=== PATIENT | female | born 1970 | race Hispanic/Latino ===

== ENCOUNTER 2022-04-04 19:31 | Emergency (ER) | payer OTHER ==
[~2022-04-04] VITALS: Ht 154.9 cm; Wt 67.1 kg
[2022-04-04 20:14] VITALS: BP 134/75
== END 2022-04-04 20:24 | disposition home or self-care (01) ==
LOC: EDH 19:31
DX: S61.411D Laceration without foreign body of right hand, subsequent encounter (principal); X58.XXXD Exposure to other specified factors, subsequent encounter
CPT/HCPCS: 99281

== ENCOUNTER 2024-06-03 15:01 | Emergency (ER) | payer OTHER ==
[~2024-06-03] VITALS: Ht 157.5 cm; Wt 67.6 kg
[2024-06-03 15:38] LABS: RAPID GROUP A STREP negative (NEGATIVE)
[2024-06-03 15:58] LABS: SARS-CoV-2, RNA, NAAT NEGATIVE SARS CoV-2 (NEGATIVE)
[2024-06-03 16:05] LABS: HEMATOCRIT 36.7 % (36-48); MEAN CORPUSCULAR HEMOGLOBIN 30.9 pg (27.0-33.0); MEAN CORPUSCULAR HGB CONC 34.9 g/dL (32.0-36.0); MEAN CORPUSCULAR VOLUME 88.6 fL (79-99); RED BLOOD CELL COUNT(AUTO) 4.14 MIL/uL (4.00-5.50); WHITE BLOOD COUNT (AUTO) 12.7 K/uL (4.8-10.8)
[2024-06-03 16:14] LABS: INFLUENZA TYPE A NEGATIVE FOR TYPE A (NEGATIVE); INFLUENZA TYPE B NEGATIVE FOR TYPE B (NEGATIVE)
[2024-06-03] MEDS: MAG/ALUM/SIMETH 30 ML UDCUP PO ONE (17:09)
[2024-06-03] MEDS: LIDOCAINE HCL 2% VISCOUS 15 ML UDCUP PO ONE (17:09)
[2024-06-03] MEDS: DICYCLOMINE HCL 10 MG/5 ML ML PO ONE (17:09)
[2024-06-03] MEDS: 0.9%NACL 1000ML 1,000 ML IV ONE ×2 (17:10→18:44)
[2024-06-03 17:25] LABS: CREATININE 0.8 mg/dL (0.5-1.0); POTASSIUM 3.8 mmol/L (3.5-5.1)
[2024-06-03 17:30] LABS: ALBUMIN 3.5 g/dL (3.5-5.0); BILIRUBIN,TOTAL 1.2 mg/dL (0.2-1.0); TOTAL PROTEIN, SERUM 7.3 g/dL (6.0-8.3)
[2024-06-03] MEDS: acetaMINOPHEN 500 MG TABLET PO ONE (17:57)
[2024-06-03 20:40] LABS: APPEARANCE,URINE CLEAR (CLEAR); BILIRUBIN,URINE NEGATIVE (NEGATIVE); COLOR,URINE COLORLESS (YELLOW); GLUCOSE, URINE (UA) NEGATIVE (NEGATIVE); KETONES,URINE NEGATIVE (NEGATIVE); LEUKOCYTE ESTERASE ,URINE NEGATIVE Leu/uL (NEGATIVE); NITRATE,URINE NEGATIVE (NEGATIVE); OCCULT BLOOD,URINE NEGATIVE (NEGATIVE); PH,URINE 6.5 (5.0-8.0); PROTEIN,URINE NEGATIVE (NEGATIVE); UROBILINOGEN,URINE 0.2 mg/dL (0.2-1.0)
[2024-06-03 20:49] LABS: ADD UA MICROSCOPIC NO
[2024-06-03 23:13] VITALS: BP 96/60; PULSE 62; RESP 16; TEMP 97.7; O2SAT 94
== END 2024-06-03 23:14 | disposition home or self-care (01) ==
LOC: EDH 15:01
DX: R07.9 Chest pain, unspecified (principal); Z20.822 Contact with and (suspected) exposure to COVID-19; J45.909 Unspecified asthma, uncomplicated
CPT/HCPCS: 99285; 96360; 70450; 71045; 87635; 96361; 84484; 80053; 85027; 87880; 87804 ×2; 81003; 36415; 93005; J7030 ×2

== ENCOUNTER 2024-07-10 18:59 | Emergency (ER) | payer OTHER ==
[~2024-07-10] VITALS: Ht 154.9 cm; Wt 68.5 kg
--- NOTE | 2024-07-10 19:22 | ERN ---
ED Note History of Present Illness Stated Complaint: RT FLANK PAIN Chief Complaint: Flank Pain Time Seen by MD: 19:02 Dictation: PATIENT IS A 54-YEAR-OLD FEMALE COMING IN TODAY WITH RIGHT FLANK PAIN THAT RADIATES TO RIGHT LOWER QUADRANT. SHE STATES SHE HAS HAD CHILLS WITHOUT NAUSEA VOMITING OR FEVER. SHE IS HAVING NEPHROSTOMY TUBE IN PLACE THAT WAS PLACED AT [facility] ON 07/04. URINE NEPHROSTOMY TUBE. Allergies: Coded Allergies: No Known Drug Allergies (Unverified Allergy, Unknown, 04/04/22) Past Medical History Past Medical History: Asthma, Kidney Stone, Pneumonia Surgical History: Other, None Surgical History Other: RT HAND, RT NEPHROSTOMY TUBE Social History: Negative, Lives with family History: Not Applicable RN Note Reviewed/Agreed w/PFSH: Yes Review of System Dictation \ CONSTITUTIONAL: NEGATIVE EXCEPT FOR HPI HEAD/FACE: NEGATIVE EXCEPT FOR HPI EENT: NEGATIVE EXCEPT FOR HPI RESPIRATORY: NEGATIVE EXCEPT FOR HPI GASTROINTESTINAL/ABDOMINAL: NEGATIVE EXCEPT FOR HPI GENITOURINARY: NEGATIVE EXCEPT FOR HPI RIGHT FLANK PAIN WITH NEPHROSTOMY TUBE IN PLACE DRAINING CLEAR URINE MUSCULOSKELETAL: NEGATIVE EXCEPT FOR HPI INTEGUMENTARY: NEGATIVE EXCEPT FOR HPI NEUROLOGICAL/PSYCH: NEGATIVE EXCEPT FOR HPI HEMATOLOGIC/LYMPHATIC: NEGATIVE EXCEPT FOR HPI ALL SYSTEMS NEGATIVE, EXCEPT NOTED ABOVE. 13 POINT REVIEW OF SYSTEMS ASSESSED AND ALL NEGATIVE EXCEPT FOR ABOVE. Initial Vital Sign VS Vital Signs Date Time Temp Pulse Resp B/P (MAP) Pulse Ox O2 Delivery O2 Flow Rate FiO2 07/10/24 19:00 97.9 77 20 136/85 100 Room Air 07/10/24 20:43 0 21 Physical Exam Dictation VITAL SIGNS REVIEWED GENERAL APPEARANCE: ALERT, ORIENTED X 3, MODERATE ACUTE DISTRESS, WELL DEVELOPED, NOURISHED. HEAD AND FACE: NON-TRAUMATIC. EYES: PERRL, PINK CONJUNCTIVAS, EYELID NO TRAUMA, ANTERIOR CHAMBER WITH ARCUS SENILIS. EARS: PINNAS INTACT AND NO SIGNS OF TRAUMA OR ERYTHEMA EAR CANALS CLEAR AND NO DISCHARGE TM NO ERYTHEMA NOSE: NO DISCHARGE, NO BLEEDING. OROPHARYNX: MOUTH NORMAL, TONGUE PINK, PHARYNX CLEAR,NO ERYTHEMA, TONSILS NO EXUDATES, NO ABSCESSES NOTED, MUCOUS MEMBRANE MOIST NECK: SUPPLE, NON-TENDER, NO THYROMEGALY, NO MASSES, NO JVD, NO BRUITS BREAST:DEFERRED CHEST:NO TENDERNESS, NO CREPITUS, NO PARADOXICAL MOVEMENT, NO RETRACTIONS LUNGS:CLEAR, WELL-VENTILATED, SYMMETRIC, NO RALES, NO WHEEZING, NO RHONCHI, NO STRIDOR, GOOD BREATH SOUNDS BILATERALLY HEART: REGULAR RATE, REGULAR RHYTHM, NO MURMUR, NO GALLOPS VASCULAR: NO PERIPHERAL EDEMA, ABDOMEN: SOFT, POSITIVE BOWEL SOUNDS, NONDISTENDED, NO GUARDING, NONTENDER, NO REBOUND, NO MASSES NO HEPATOMEGALY, NO SPLENOMEGALY, NO PEACE'S SIGN, NO HERNIAS. RECTAL: DEFERRED GENITAL: DEFERRED RIGHT FLANK PAIN WITH NEPHROSTOMY TUBE, DRAINING CLEAR WIN URINE TO BAG INSERTION SITE WITHOUT ERYTHEMA TENDERNESS SWELLING NEUROLOGICAL: NORMAL SPEECH, MOTOR FUNCTION INTACT, SENSORY FUNCTION INTACT MUSCULOSKELETAL: NECK NONTENDER, FULL RANGE OF MOTION, BACK NONTENDER, FULL RANGE OF MOTION, EXTREMITIES: NONTENDER, FULL RANGE OF MOTION SKIN: COLOR PINK, DRY, NO TURGOR, NO RASH, NO LACERATIONS, NO ABRASIONS, NO CONTUSIONS. LYMPHATIC: DEFERRED Results (Laboratory/Radiology) Laboratory/Radiology Laboratory Tests Test 07/10/24 19:28 07/10/24 19:41 White Blood Count 6.9 K/uL (4.8-10.8) Red Blood Count 3.80 MIL/uL (4.00-5.50) L Hemoglobin 11.7 g/dL (12.0-16.0) L Hematocrit 34.1 % (36-48) L Mean Corpuscular Volume 89.7 fL (79-99) Mean Corpuscular Hemoglobin 30.8 pg (27.0-33.0) Mean Corpuscular Hemoglobin Concent 34.3 g/dL (32.0-36.0) Red Cell Distribution Width 12.0 % (11.0-15.5) Platelet Count 271 K/uL (130-400) Mean Platelet Volume 9.0 fL (7.5-10.5) Immature Granulocyte % (Auto) 0.3 % (0-1) Neutrophils (%) (Auto) 63.4 % (40.0-77.0) Lymphocytes (%) (Auto) 26.1 % (21.0-51.0) Monocytes (%) (Auto) 7.4 % (3.0-13.0) Eosinophils (%) (Auto) 2.7 % (0.0-8.0) Basophils (%) (Auto) 0.1 % (0.0-5.0) Neutrophils # (Auto) 4.4 K/uL (1.8-7.7) Lymphocytes # (Auto) 1.8 K/uL (1.0-4.8) Monocytes # (Auto) 0.5 K/uL (0.1-1.0) Eosinophils # (Auto) 0.19 K/uL (0.00-0.70) Basophils # (Auto) 0.01 K/uL (0.00-0.20) Absolute Immature Granulocyte (auto 0.02 K/uL (0-1) Nucleated Red Blood Cells 0.0 % (0.0-0.19) Sodium Level 137 mmol/L (136-145) Potassium Level 3.8 mmol/L (3.5-5.1) Chloride Level 102 mmol/L (101-111) Carbon Dioxide Level 31 mmol/L (21-32) Blood Urea Nitrogen 14 mg/dL (7-18) Creatinine 0.8 mg/dL (0.5-1.0) Glomerular Filtration Rate Calc 88 mL/min (>90) Random Glucose 120 mg/dL (70-105) H Total Calcium 9.1 mg/dL (8.5-10.1) Urine Color LIGHT-ORANGE (YELLOW) Urine Appearance TURBID (CLEAR) Urine pH 6.5 (5.0-8.0) Urine Specific [place] 1.022 (1.001-1.031) Urine Protein 100 mg/dL (NEGATIVE) H Urine Glucose (UA) NEGATIVE mg/dL (NEGATIVE) Urine Ketones NEGATIVE mg/dL (NEGATIVE) Urine Occult Blood LARGE (NEGATIVE) H Urine Nitrate NEGATIVE (NEGATIVE) Urine Bilirubin NEGATIVE mg/dL (NEGATIVE) Urine Urobilinogen 0.2 mg/dL (0.2-1.0) Urine Leukocyte Esterase 250 Angela/uL (NEGATIVE) H Urine RBC TNTC /HPF (0-1) H Urine WBC None /HPF (0-1) Urine Calcium Oxalate Crystals MOD /LPF (None Seen) Urine Bacteria None /HPF (None Seen) CT ABDOMEN/PELVIS W/O CONTRAST HISTORY: Right flank COMPARISON: 04/24/2004 TECHNIQUE: Multiple sequential axial images of the abdomen and pelvis were obtained from the dome of the diaphragm through symphysis pubis. Patient was not through intravenous route. Oral contrast was not given. FINDINGS: No pleural effusion is seen bilaterally. There is no evidence of parenchymal disease or pulmonary nodule of the visualized lower lungs. Degenerative changes of the thoracolumbar spine are present. The heart is not enlarged. Liver measures 15 cm. The liver, spleen, adrenal glands and pancreas are unremarkable. There is no evidence of hydronephrosis bilaterally. There is right percutaneous nephrostomy tube. 4 mm renal stone is seen right proximal mid ureter. Fecal material is seen in the colon. There are normal size retroperitoneal and mesenteric lymph nodes. No ascites is seen. Atherosclerotic changes are present. No CT evidence of acute appendicitis is seen. Pelvic sidewalls are symmetric bilaterally. Bladder is poorly distended. IMPRESSION: 1. There is right percutaneous nephrostomy tube. 4 mm renal stone is seen right proximal mid ureter. Labs Reviewed?: Yes ED Course ED Course Orders Procedure Category Date Status Time Cbc With Differential LAB 07/10/24 Complete 19:19 Urinalysis Profile LAB 07/10/24 Complete 19:19 0.9%Nacl 1000ml (Ns PHA 07/10/24 Complete 1000ml) 19:30 Ketorolac PHA 07/10/24 Complete Tromethamine 30mg/Ml 19:30 Ct Abdomen/Pelvis W/O CT 07/10/24 Resulted Contrast 19:19 Basic Metabolic Panel LAB 07/10/24 Complete 19:19 Culture Urine ABRAHAM 07/10/24 In Process 19:51 Morphine 2mg Syg PHA 07/10/24 Complete (Morphine 2mg Syg) 20:30 Current Medications Medications (Trade) Dose Ordered Sig/Juan Route PRN Reason Start Time Stop Time Status Last Admin Dose Admin Ketorolac Tromethamine (toRADol) 30 mg ONCE ONCE IVP 07/10/24 19:30 07/10/24 19:31 DC 07/10/24 19:37 Morphine Sulfate (morPHINE 2MG SYG) 2 mg ONCE ONCE IVP 07/10/24 20:30 07/10/24 20:31 DC 07/10/24 20:13 Sodium Chloride 1,000 ml @ 0 mls/hr ONCE ONCE IV 07/10/24 19:30 07/10/24 19:31 DC 07/10/24 19:37 Vital Signs Date Time Temp Pulse Resp B/P (MAP) Pulse Ox O2 Delivery O2 Flow Rate FiO2 07/10/24 20:43 97.7 74 20 130/63 96 Room Air* 0 21 07/10/24 19:00 97.9 77 20 136/85 100 Room Air 09/19/2054 PATIENT WILL BE DISCHARGED HOME WITH HEMODYNAMICALLY STABLE VITAL SIGNS WE WILL BE PUT ON AUGMENTIN FOR CYSTITIS AND TOLD TO SEE HER UROLOGIST IN 1-2 DAYS. Medical Decision Making MDM MEDICAL DISCHARGE MAKING BASED ON CT AND LABS WITH A URINALYSIS FOR NEPHROSTOMY TUBE PLACEMENT. PATIENT HAS A ACUTE CYSTITIS WITH HEMATURIA NEPHROSTOMY TUBE WAS IN PLACE AND DRAINING DISCHARGED HOME TO FOLLOW UP WITH THE UROLOGIST IN 1-2 DAYS. DX & DISP Disposition: Discharge Departure Impression: Primary Impression: Acute cystitis with hematuria Additional Impressions: Renal calculus, right, Colic, ureteral, Nephrostomy status Condition: Stable Scripts Phenazopyridine HCl (Pyridium) 200 Mg Tablet 200 MG PO TID for painful urination for 5 Days, #15 TAB 0 Refills Prov: MARCY GRIMES NP 07/10/24 Acetaminophen with Codeine (Acetaminophen-Cod #3 Tablet) 300 Mg-30 Mg Tablet 1 TAB PO Q4H PRN for MODERATE TO SEVERE PAIN, #15 TAB 0 Refills Prov: MARCY GRIMES NP 07/10/24 Amoxicillin/Potassium Clav (Amox Tr-K Clv 875-125 mg Tab) 875 Mg-125 Mg Tablet 1 EACH PO BID for 7 Days, #14 TAB 0 Refills Prov: MARCY GRIMES NP 07/10/24 Additional Instructions: Follow-up with primary care provider in 1 to 2 days. Take medications as directed here in the emergency room. Okay to continue home medications unless otherwise discussed during your visit in the emergency room today. Return to your nearest emergency room if symptoms worsen or if there is no improvement. Call 911 if you need immediate assistance. Take Tylenol or Motrin [id number] as needed and if no contraindications are present. Increase oral hydration. A wound culture or urine culture was ordered here in the [facility] department please follow-up with primary care provider and advise them to get repeat ports from our facility. If you had any Gary wrap/splints that were applied here, please do not remove them until you see your primary care or specialty. Take antibiotics as directed until gone, call your urologist for a follow up in the next 1-2 days. Increase your water intake. Referrals: SELF,REFERRAL (PCP) Time of Disposition: 21:58 I have reviewed the case, and I agree with, Diagnosis and Plan MARCY GRIMES NP Jul 10, 2024 19:22
[2024-07-10 19:35] LABS: BASOPHILS # (AUTO) 0.01 K/uL (0.00-0.20); BASOPHILS % (AUTO) 0.1 % (0.0-5.0); EOSINOPHILS # (AUTO) 0.19 K/uL (0.00-0.70); EOSINOPHILS % (AUTO) 2.7 % (0.0-8.0); HEMATOCRIT 34.1 % (36-48); IMMATURE GRANULOCYTE ABSOLUTE 0.02 K/uL (0-1); LYMPHOCYTES # (AUTO) 1.8 K/uL (1.0-4.8); LYMPHOCYTES % (AUTO) 26.1 % (21.0-51.0); MEAN CORPUSCULAR HEMOGLOBIN 30.8 pg (27.0-33.0); MEAN CORPUSCULAR HGB CONC 34.3 g/dL (32.0-36.0); MEAN CORPUSCULAR VOLUME 89.7 fL (79-99); MONOCYTES # (AUTO) 0.5 K/uL (0.1-1.0); MONOCYTES % (AUTO) 7.4 % (3.0-13.0); NEUTROPHILS # (AUTO) 4.4 K/uL (1.8-7.7); NEUTROPHILS % (AUTO) 63.4 % (40.0-77.0); PLATELET COUNT (AUTO) 271 K/uL (130-400); WHITE BLOOD COUNT (AUTO) 6.9 K/uL (4.8-10.8)
[2024-07-10] MEDS: 0.9%NACL 1000ML 1,000 ML IV ONE (19:37)
[2024-07-10] MEDS: ketOROlac 30MG VIAL (30MG/ML) IVP ONE (19:37)
[2024-07-10 19:43] LABS: CREATININE 0.8 mg/dL (0.5-1.0); POTASSIUM 3.8 mmol/L (3.5-5.1)
[2024-07-10 19:50] LABS: APPEARANCE,URINE TURBID (CLEAR); BILIRUBIN,URINE NEGATIVE (NEGATIVE); COLOR,URINE LIGHT-ORANGE (YELLOW); GLUCOSE, URINE (UA) NEGATIVE (NEGATIVE); KETONES,URINE NEGATIVE (NEGATIVE); LEUKOCYTE ESTERASE ,URINE 250 Leu/uL (NEGATIVE); NITRATE,URINE NEGATIVE (NEGATIVE); OCCULT BLOOD,URINE LARGE (NEGATIVE); PH,URINE 6.5 (5.0-8.0); PROTEIN,URINE 100 mg/dL (NEGATIVE); UROBILINOGEN,URINE 0.2 mg/dL (0.2-1.0)
[2024-07-10 19:51] LABS: ADD UA MICROSCOPIC YES
[2024-07-10 20:03] LABS: CALCIUM OXALATE CRYSTALS,UR MOD /LPF (None Seen); MUCUS,URINE RARE LPF (None Seen); RBC,URINE TNTC /HPF (0-1)
[2024-07-10] MEDS: morPHINE 2 MG SYG IVP ONE (20:13)
--- NOTE | 2024-07-10 21:35 | HMCIMG ---
CT ABDOMEN/PELVIS W/O CONTRAST HISTORY: Right flank COMPARISON: 04/24/2004 TECHNIQUE: Multiple sequential axial images of the abdomen and pelvis were obtained from the dome of the diaphragm through symphysis pubis. Patient was not through intravenous route. Oral contrast was not given. FINDINGS: No pleural effusion is seen bilaterally. There is no evidence of parenchymal disease or pulmonary nodule of the visualized lower lungs. Degenerative changes of the thoracolumbar spine are present. The heart is not enlarged. Liver measures 15 cm. The liver, spleen, adrenal glands and pancreas are unremarkable. There is no evidence of hydronephrosis bilaterally. There is right percutaneous nephrostomy tube. 4 mm renal stone is seen right proximal mid ureter. Fecal material is seen in the colon. There are normal size retroperitoneal and mesenteric lymph nodes. No ascites is seen. Atherosclerotic changes are present. No CT evidence of acute appendicitis is seen. Pelvic sidewalls are symmetric bilaterally. Bladder is poorly distended. IMPRESSION: 1. There is right percutaneous nephrostomy tube. 4 mm renal stone is seen right proximal mid ureter. CT was performed with one or more following dose reduction techniques: automated exposure control, adjustment of the mA and kv according to patient's size, or use of a iterative reconstruction technique.
[2024-07-10] MEDS ORDERED: ACET-2079 PO (22:01)
[2024-07-10] MEDS ORDERED: PHEN-776 PO (22:01)
[2024-07-10] MEDS ORDERED: AMOX1TAB16 PO (22:01)
[2024-07-10] MEDS: AMOX/CLAV 875/125MG TAB PO ONE (22:10)
[2024-07-10 22:13] VITALS: BP 104/59; PULSE 71; RESP 20; TEMP 97.2; O2SAT 96
== END 2024-07-10 22:26 | disposition home or self-care (01) ==
LOC: EDH 18:59
DX: N30.01 Acute cystitis with hematuria (principal); N20.0 Calculus of kidney; J45.909 Unspecified asthma, uncomplicated; Z93.6 Other artificial openings of urinary tract status
CPT/HCPCS: 99285; 74176; 96374; 96361; 96375; 80048; 85025; 87086; 81001; 36415; J2270; J7030; J1885

== ENCOUNTER 2024-07-14 18:52 | Emergency (ER) | payer OTHER ==
[~2024-07-14] VITALS: Ht 154.9 cm; Wt 68.9 kg
[~2024-07-14 18:52] MED LIST: ACET-2079 PO; AMOX1TAB16 PO; PHEN-776 PO
--- NOTE | 2024-07-14 19:03 | ERN ---
ED Note History of Present Illness Stated Complaint: BACK PAIN Chief Complaint: Back Pain-No Injury Time Seen by MD: 18:55 Dictation: PATIENT IS A 54-YEAR-OLD FEMALE HERE WITH A KNOWN RIGHT NEPHROSTOMY TUBE THAT IS DRAINING AND SHE STATES SHE WAS LIKE IT REMOVED. SHE HAD THE NEPHROSTOMY TUBE PLACED AT THIS HOSPITAL MORE THAN A MONTH AGO AND WAS PROVIDED THE NAME OF , SHE SAID HE FOLLOWED UP WITH HIM HOWEVER SHE CAN NOT AFFORD PAY FOR HIS CARE. ADDITIONALLY SHE WAS SEEN HERE ON July FOR THE SAME COMPLAINT, WAS WORKED UP INCLUDING A CT SCAN POSITION WAS VERIFIED AND SHE WAS PROVIDED MEDICATIONS FOR ACUTE UTI. SHE STATES I DID NOT FILL THE PRESCRIPTIONS BECAUSE I COULD NOT AFFORD THE MEDICATIONS. I ASKED HER IF SHE HAD SEEN HER PRIMARY CARE DOCTOR AND SHE SAID SHE DOES NOT HAVE A PRIMARY CARE DOCTOR. NEPHROSTOMY TUBE TO RIGHT LEG WITH LEG BAG DRAINING CLEAR WIN URINE. Allergies: Coded Allergies: No Known Drug Allergies (Unverified Allergy, Unknown, 04/04/22) Home Meds Active Scripts Phenazopyridine HCl (Pyridium) 200 Mg Tablet, 200 MG PO TID for painful urination for 5 Days, #15 TAB 0 Refills Prov:MARCY GRIMES NP 07/10/24 Acetaminophen with Codeine (Acetaminophen-Cod #3 Tablet) 300 Mg-30 Mg Tablet, 1 TAB PO Q4H PRN for MODERATE TO SEVERE PAIN, #15 TAB 0 Refills Prov:MARCY GRIMES NP 07/10/24 Amoxicillin/Potassium Clav (Amox Tr-K Clv 875-125 mg Tab) 875 Mg-125 Mg Tablet, 1 EACH PO BID for 7 Days, #14 TAB 0 Refills Prov:MARCY GRIMES NP 07/10/24 Past Medical History Past Medical History: Asthma, Kidney Stone, Pneumonia Surgical History: Other, None Surgical History Other: RT HAND, RT NEPHROSTOMY TUBE Social History: Negative, Lives with family History: Not Applicable RN Note Reviewed/Agreed w/PFSH: Yes Review of System Dictation CONSTITUTIONAL: NEGATIVE EXCEPT FOR HPI HEAD/FACE: NEGATIVE EXCEPT FOR HPI EENT: NEGATIVE EXCEPT FOR HPI RESPIRATORY: NEGATIVE EXCEPT FOR HPI GASTROINTESTINAL/ABDOMINAL: NEGATIVE EXCEPT FOR HPI GENITOURINARY: NEGATIVE EXCEPT FOR HPI RIGHT NEPHROSTOMY TUBE WITH OUT INFORMATION TO INSERTION SITE DRAINING TO RIGHT LEG DRAIN BAG CLEAR WIN URINE IN BAG MUSCULOSKELETAL: NEGATIVE EXCEPT FOR HPI INTEGUMENTARY: NEGATIVE EXCEPT FOR HPI NEUROLOGICAL/PSYCH: NEGATIVE EXCEPT FOR HPI HEMATOLOGIC/LYMPHATIC: NEGATIVE EXCEPT FOR HPI ALL SYSTEMS NEGATIVE, EXCEPT NOTED ABOVE. 13 POINT REVIEW OF SYSTEMS ASSESSED AND ALL NEGATIVE EXCEPT FOR ABOVE. Initial Vital Sign VS Vital Signs Date Time Temp Pulse Resp B/P (MAP) Pulse Ox O2 Delivery O2 Flow Rate FiO2 07/14/24 18:53 98.6 77 20 130/85 Room Air Physical Exam Dictation VITAL SIGNS REVIEWED GENERAL APPEARANCE: ALERT, ORIENTED X 3, NO ACUTE DISTRESS, WELL DEVELOPED, NOURISHED. HEAD AND FACE: NON-TRAUMATIC. EYES: PERRL, PINK CONJUNCTIVAS, EYELID NO TRAUMA, ANTERIOR CHAMBER WITH ARCUS SENILIS. EARS: PINNAS INTACT AND NO SIGNS OF TRAUMA OR ERYTHEMA EAR CANALS CLEAR AND NO DISCHARGE TM NO ERYTHEMA NOSE: NO DISCHARGE, NO BLEEDING. OROPHARYNX: MOUTH NORMAL, TONGUE PINK, PHARYNX CLEAR,NO ERYTHEMA, TONSILS NO EXUDATES, NO ABSCESSES NOTED, MUCOUS MEMBRANE MOIST NECK: SUPPLE, NON-TENDER, NO THYROMEGALY, NO MASSES, NO JVD, NO BRUITS BREAST:DEFERRED CHEST:NO TENDERNESS, NO CREPITUS, NO PARADOXICAL MOVEMENT, NO RETRACTIONS LUNGS:CLEAR, WELL-VENTILATED, SYMMETRIC, NO RALES, NO WHEEZING, NO RHONCHI, NO STRIDOR, GOOD BREATH SOUNDS BILATERALLY HEART: REGULAR RATE, REGULAR RHYTHM, NO MURMUR, NO GALLOPS VASCULAR: NO PERIPHERAL EDEMA, ABDOMEN: SOFT, POSITIVE BOWEL SOUNDS, NONDISTENDED, NO GUARDING, NONTENDER, NO REBOUND, NO MASSES NO HEPATOMEGALY, NO SPLENOMEGALY, NO PEACE'S SIGN, NO HERNIAS. RECTAL: DEFERRED GENITAL: DEFERRED RIGHT NEPHROSTOMY TUBE TO LEG BAG WITH CLEAR WIN URINE IN BAG. NEUROLOGICAL: NORMAL SPEECH, MOTOR FUNCTION INTACT, SENSORY FUNCTION INTACT MUSCULOSKELETAL: NECK NONTENDER, FULL RANGE OF MOTION, BACK NONTENDER, FULL RANGE OF MOTION, EXTREMITIES: NONTENDER, FULL RANGE OF MOTION SKIN: COLOR PINK, DRY, NO TURGOR, NO RASH, NO LACERATIONS, NO ABRASIONS, NO CONTUSIONS. LYMPHATIC: DEFERRED Results (Laboratory/Radiology) Labs Reviewed?: Yes ED Course ED Course Orders Procedure Category Date Status Time Acetaminophen With PHA 07/14/24 In Process Codeine (Tylenol-Code 19:30 Phenazopyridine Hcl PHA 07/14/24 In Process 200 Mg Tab (Pyridium 19:30 Current Medications Medications (Trade) Dose Ordered Sig/Juan Route PRN Reason Start Time Stop Time Status Last Admin Dose Admin Acetaminophen/ Codeine Phosphate (TYLenol-coDEINE TAB) 2 tab ONCE ONCE PO 07/14/24 19:30 07/14/24 19:31 Phenazopyridine HCl (PYRIdium HCL 200 MG TAB) 200 mg ONCE ONCE PO 07/14/24 19:30 07/14/24 19:31 Vital Signs Date Time Temp Pulse Resp B/P (MAP) Pulse Ox O2 Delivery O2 Flow Rate FiO2 07/14/24 18:53 98.6 77 20 130/85 Room Air 1910, NO LABS OR IMAGING INDICATED AT THIS TIME. PATIENT WAS INSTRUCTED TO PURCHASE OF THE MEDICATIONS THAT WERE PRESCRIBED TO HER ON 07/10/2024 AND FOLLOW UP WITH TOMORROW, CALL FOR AN APPOINTMENT. Medical Decision Making MDM MEDICAL DISCHARGE MAKING WAS BASED ON EDUCATION AND ASSESSMENT OF PATIENT. NO EMERGENT FINDINGS PATIENT INSTRUCTED TO FILL HER PRESCRIPTIONS FROM YOUR ER VISIT ON 07/10/2024 CALLED THE UROLOGIST THAT HAS BEEN PROVIDED TO HER FOR AN APPOINTMENT AND FOLLOW UP DX & DISP Disposition: Discharge Departure Impression: Primary Impression: Nephrostomy status Additional Impression: Medically noncompliant Condition: Stable Additional Instructions: FOLLOW-UP WITH PRIMARY CARE PROVIDER IN 1 TO 2 DAYS. TAKE MEDICATIONS DIRECTED HERE IN THE EMERGENCY ROOM. OKAY TO CONTINUE HOME MEDICATIONS UNLESS OTHERWISE DISCUSSED DURING YOUR VISIT IN THE EMERGENCY ROOM TODAY. RETURN TO YOUR NEAREST EMERGENCY ROOM IF SYMPTOMS WORSEN OR IF THERE IS NO IMPROVEMENT. CALL 911 IF YOU NEED IMMEDIATE ASSISTANCE. TAKE TYLENOL OR MOTRIN [id number] NEEDED AND IF NO CONTRAINDICATIONS ARE PRESENT. INCREASE ORAL HYDRATION. A WOUND CULTURE OR URINE CULTURE WAS ORDERED HERE IN THE EMERGENCY ROOM DEPARTMENT PLEASE FOLLOW-UP WITH PRIMARY CARE PROVIDER AND ADVISE THEM TO GET REPEAT PORTS FROM OUR FACILITY. IF YOU HAD ANY DARRIUS WRAP/SPLINTS THAT WERE APPLIED HERE, PLEASE DO NOT REMOVE THEM UNTIL YOU SEE YOUR PRIMARY CARE OR SPECIALTY. FILL THE PRESCRIPTIONS THAT WERE GIVEN TO YOU ON 07/10/2024. TAKE THESE MEDICATIONS DIRECTED. INCREASE YOUR WATER INTAKE, CALL UROLOGIST TOMORROW FOR AN APPOINTMENT. Referrals: SELF,REFERRAL (PCP) VIKTORIYA FREEMAN MD Time of Disposition: 19:12 I have reviewed the case, and I agree with, Diagnosis and Plan MARCY GRIMES TRACKMAN Jul 14, 2024 19:03
[2024-07-14] MEDS: PHENAZOpyridine HCL 200 MG TAB 200 MG TABLET PO ONE (20:42)
[2024-07-14] MEDS: acetaMINOPHEN WITH coDEINE 1 TAB TAB PO ONE (20:42)
[2024-07-14 20:49] VITALS: BP 138/74; PULSE 68; RESP 18; TEMP 98.6; O2SAT 98
== END 2024-07-14 20:45 | disposition home or self-care (01) ==
LOC: EDH 18:52
DX: Z43.6 Encounter for attention to other artificial openings of urinary tract (principal); J45.909 Unspecified asthma, uncomplicated; Z87.442 Personal history of urinary calculi; Z91.199 Patient's noncompliance with other medical treatment and regimen due to unspecified reason; Z79.899 Other long term (current) drug therapy; Z98.890 Other specified postprocedural states
CPT/HCPCS: 99283

== ENCOUNTER 2024-07-18 14:23 | Emergency (ER) | payer OTHER ==
[~2024-07-18] VITALS: Ht 154.9 cm; Wt 68.5 kg
--- NOTE | 2024-07-18 16:14 | ERN ---
ED Note History of Present Illness Stated Complaint: OTHER Chief Complaint: Other Problems Time Seen by MD: 14:55 Dictation: 54-year-old female presents to the ED for evaluation of her right nephrostomy tube stating that it has been bothering her for the past 2 days and wants it to be removed. Patient states that the nephrostomy tube was placed on 07/04/2024 by . Patient reports she has not been able to sleep due to being so uncomfortable and states that the area around the nephrostomy tube itches. Allergies: Coded Allergies: No Known Drug Allergies (Unverified Allergy, Unknown, 04/04/22) Home Meds Active Scripts Ciprofloxacin HCl (Cipro) 500 Mg Tablet, 1 TAB PO BID for 5 Days, #10 TAB 0 Refills Prov:CHI FIORE MD 07/18/24 Phenazopyridine HCl (Pyridium) 200 Mg Tablet, 200 MG PO TID for painful u rination for 5 Days, #15 TAB 0 Refills Prov:MARCY GRIMES NP 07/10/24 Acetaminophen with Codeine (Acetaminophen-Cod #3 Tablet) 300 Mg-30 Mg Tablet, 1 TAB PO Q4H PRN for MODERATE TO SEVERE PAIN, #15 TAB 0 Refills Prov:MARCY GRIMES NP 07/10/24 Amoxicillin/Potassium Clav (Amox Tr-K Clv 875-125 mg Tab) 875 Mg-125 Mg Tablet, 1 EACH PO BID for 7 Days, #14 TAB 0 Refills Prov:MARCY GRIMES NP 07/10/24 Past Medical History Past Medical History: Asthma, Kidney Stone, Pneumonia Surgical History: Other, None Surgical History Other: RT HAND, RT NEPHROSTOMY TUBE Social History: Negative, Lives with family History: Not Applicable Review of System Dictation Constitutional: Nephrostomy tube evaluation Negative for fever,chills, and weight loss Eyes: Negative for injury, pain,redness, and discharge ENT: Negative for injury,pain or swelling Cardiovascular: Negative for chest pain, palpitations, and edema Respiratory: Negative for shortness of breath, cough, and wheezing, Abdomen/GI: Negative for abdominal pain, nausea, vomiting, diarrhea, and constipation Back: Negative for injury and pain : Negative for injury, bleeding and discharge MS/Extremity: Negative for injury and deformity Skin: Negative for rash, and discoloration Neuro: Negative for headache, weakness, numbness, tingling, and seizure Psych: Negative for suicide ideation, homicidal ideation, and hallucinations Initial Vital Sign VS Vital Signs Date Time Temp Pulse Resp B/P (MAP) Pulse Ox O2 Delivery O2 Flow Rate FiO2 07/18/24 14:34 98.4 87 16 100/71 96 Room Air 0 Physical Exam Dictation General: awake, alert, NAD Head/Face: Normocephalic, atraumatic Eyes: PERRL, EOMI, vision at baseline ENT: oral cavity clear, TMs clear, no signs of infection Neck: Trachea midline, supple, no nuchal rigidity Cardiovascular: RRR, normal S1/S2, No MRGs, no JVD Respiratory: CTAB, no respiratory distress, No rales or wheezes Abdomen: Soft, non-tender, non-distended, normal bowel sounds, no guarding or rebound. Back: Right-sided nephrostomy tube in place Skin: Warm, dry, normal turgor, no rash MS/Extremity: Pulses equal, no cyanosis, neurovascular intact, FROM Neuro: COAx4, GCS 15, strength 5/5, CN 2-12 intact, normal cerebellar exam, normal gait, Psych: Normal behavior, mood, and affect normal Results (Laboratory/Radiology) Laboratory/Radiology Laboratory Tests Test 07/18/24 16:10 07/18/24 17:10 White Blood Count 6.0 K/uL (4.8-10.8) Red Blood Count 3.92 MIL/uL (4.00-5.50) L Hemoglobin 12.1 g/dL (12.0-16.0) Hematocrit 36.0 % (36-48) Mean Corpuscular Volume 91.8 fL (79-99) Mean Corpuscular Hemoglobin 30.9 pg (27.0-33.0) Mean Corpuscular Hemoglobin Concent 33.6 g/dL (32.0-36.0) Red Cell Distribution Width 11.9 % (11.0-15.5) Platelet Count 316 K/uL (130-400) Mean Platelet Volume 9.2 fL (7.5-10.5) Immature Granulocyte % (Auto) 0.3 % (0-1) Neutrophils (%) (Auto) 64.7 % (40.0-77.0) Lymphocytes (%) (Auto) 24.1 % (21.0-51.0) Monocytes (%) (Auto) 8.4 % (3.0-13.0) Eosinophils (%) (Auto) 2.2 % (0.0-8.0) Basophils (%) (Auto) 0.3 % (0.0-5.0) Neutrophils # (Auto) 3.9 K/uL (1.8-7.7) Lymphocytes # (Auto) 1.4 K/uL (1.0-4.8) Monocytes # (Auto) 0.5 K/uL (0.1-1.0) Eosinophils # (Auto) 0.13 K/uL (0.00-0.70) Basophils # (Auto) 0.02 K/uL (0.00-0.20) Absolute Immature Granulocyte (auto 0.02 K/uL (0-1) Nucleated Red Blood Cells 0.0 % (0.0-0.19) Sodium Level 142 mmol/L (136-145) Potassium Level 3.7 mmol/L (3.5-5.1) Chloride Level 104 mmol/L (101-111) Carbon Dioxide Level 29 mmol/L (21-32) Blood Urea Nitrogen 12 mg/dL (7-18) Creatinine 0.9 mg/dL (0.5-1.0) Glomerular Filtration Rate Calc 76 mL/min (>90) Random Glucose 124 mg/dL (70-105) H Total Calcium 9.1 mg/dL (8.5-10.1) Urine Color LIGHT-YELLOW (YELLOW) Urine Appearance CLOUDY (CLEAR) H Urine pH 6.5 (5.0-8.0) Urine Specific [place] 1.012 (1.001-1.031) Urine Protein 70 mg/dL (NEGATIVE) H Urine Glucose (UA) NEGATIVE mg/dL (NEGATIVE) Urine Ketones NEGATIVE mg/dL (NEGATIVE) Urine Occult Blood LARGE (NEGATIVE) H Urine Nitrate NEGATIVE (NEGATIVE) Urine Bilirubin NEGATIVE mg/dL (NEGATIVE) Urine Urobilinogen 0.2 mg/dL (0.2-1.0) Urine Leukocyte Esterase 500 Angela/uL (NEGATIVE) H Urine RBC 51-100 /HPF (0-1) H Urine WBC 26-50 /HPF (0-1) H Urine Squamous Epithelial Cells RARE /HPF (0-2) Urine Bacteria RARE /HPF (None Seen) Labs Reviewed?: Yes CT Scan Comment: REASON: flank pain ORDERING PHYSICIAN: CHI FIORE MD PROCEDURE: ABD PELVWO - CT ABD/PEL WO CON RENAL/APPY CT ABD/PEL WO CON RENAL/APPY REASON: flank pain COMPARISON: 07/10/2024 FINDINGS: Lung bases are clear. There are no focal liver lesions. The liver does not appear enlarged.. Spleen and pancreas appear unremarkable. The gallbladder appears normal as well. There is a nephrostomy tube in the right kidney. There is a 5 mm stone in the mid right ureter at the L3-4 level. These findings are unchanged compared to previous study. There is no hydronephrosis. The left kidney appears unremarkable. Bowel loops appear unremarkable. This includes normal appearance of the appendix There is no evidence of free fluid or intraperitoneal air. There are no focal fluid collections. Aorta and retroperitoneum appear normal as do pelvic soft tissue structures. The anterior abdominal wall is intact. Osseous structures appear unremarkable. IMPRESSION: 1. 5 mm stone in the right mid ureter unchanged in position, there is a right nephrostomy catheter in place with no hydronephrosis 2. No new finding compared to prior study. CT was performed with one or more following dose reduction techniques: automated exposure control, adjustment of the mA and kv according to patient's size, or use of a iterative reconstruction technique. DICTATED BY: KEENAN IZAGUIRRE MD DATE: 07/18/24 170 ED Course ED Course Orders Procedure Category Date Status Time Ct Abd/Pel Wo Con CT 07/18/24 Resulted Renal/Appy 15:08 Basic Metabolic Panel LAB 07/18/24 Complete 15:52 Cbc With Differential LAB 07/18/24 Complete 15:52 Urinalysis Profile LAB 07/18/24 Complete 15:52 Culture Urine ABRAHAM 07/18/24 In Process 17:31 Hydrocodone/Apap PHA 07/18/24 Complete 10/325 Tab ([place] 10) 18:00 Ketorolac 60mg/2ml PHA 07/18/24 Complete (Toradol 60mg/2ml) 18:00 Current Medications Medications (Trade) Dose Ordered Sig/Juan Route PRN Reason Start Time Stop Time Status Last Admin Dose Admin Acetaminophen/ Hydrocodone Bitart (NORco 10) 1 tab ONCE ONCE PO 07/18/24 18:00 11/18/24 18:01 DC 07/18/24 18:03 Ketorolac Tromethamine (toRADol 60MG/ 2ML) 30 mg ONCE ONCE IM 07/18/24 18:00 07/18/24 18:01 DC 07/18/24 18:04 Vital Signs Date Time Temp Pulse Resp B/P (MAP) Pulse Ox O2 Delivery O2 Flow Rate FiO2 07/18/24 14:34 98.4 87 16 100/71 96 Room Air 0 Medical Decision Making MDM MDM: Differential diagnosis: Nephrostomy tube evaluation, flank pain Previous outside records reviewed: Old ER visits. Need for hospitalization: Patient does not meet criteria for hospitalization. Need for emergency major/minor surgery: No Patient's prior external medical records from other ER visits were reviewed by me as indicated. Prior testing and results from previous visits were reviewed. Prior tests were taken into account with medical decision making and resource utilization, independent historian/historians were used to obtain complete medical history. I independently interpreted the test that were performed, results were reviewed by me and considered findings on radiology if ordered. Medical management and examination interpretation discussions were had by me with other qualified healthcare professionals as indicated for the patient's care. DX & DISP Disposition: Discharge Departure Impression: Primary Impression: Acute right flank pain Condition: Stable Scripts Ciprofloxacin HCl (Cipro) 500 Mg Tablet 1 TAB PO BID for 5 Days, #10 TAB 0 Refills Prov: CHI FIORE MD 07/18/24 Referrals: SELF,REFERRAL (PCP) I have reviewed, & agreed with my scribe's, documentation. (Entered by Ramirez Gill, acting as a scribe for Dr. Fiore) I personally scribed for CHI FIORE MD ([email or web address]) on 07/18/24 at 16:14. Electronically submitted by Ramirez Gill ([email or web address]). I personally scribed for CHI FIORE MD ([email or web address]) on 07/18/24 at 18:09. Electronically submitted by Ramirez Gill ([email or web address]). CHI FIORE MD Jul 18, 2024 16:14
[2024-07-18 16:30] LABS: BASOPHILS # (AUTO) 0.02 K/uL (0.00-0.20); BASOPHILS % (AUTO) 0.3 % (0.0-5.0); EOSINOPHILS # (AUTO) 0.13 K/uL (0.00-0.70); EOSINOPHILS % (AUTO) 2.2 % (0.0-8.0); IMMATURE GRANULOCYTE ABSOLUTE 0.02 K/uL (0-1); LYMPHOCYTES # (AUTO) 1.4 K/uL (1.0-4.8); LYMPHOCYTES % (AUTO) 24.1 % (21.0-51.0); MEAN CORPUSCULAR HEMOGLOBIN 30.9 pg (27.0-33.0); MEAN CORPUSCULAR HGB CONC 33.6 g/dL (32.0-36.0); MEAN CORPUSCULAR VOLUME 91.8 fL (79-99); MONOCYTES # (AUTO) 0.5 K/uL (0.1-1.0); MONOCYTES % (AUTO) 8.4 % (3.0-13.0); NEUTROPHILS # (AUTO) 3.9 K/uL (1.8-7.7); NEUTROPHILS % (AUTO) 64.7 % (40.0-77.0); PLATELET COUNT (AUTO) 316 K/uL (130-400); RED BLOOD CELL COUNT(AUTO) 3.92 MIL/uL (4.00-5.50); RED CELL DISTRIBUTION WIDTH 11.9 % (11.0-15.5)
[2024-07-18 16:42] LABS: CREATININE 0.9 mg/dL (0.5-1.0); POTASSIUM 3.7 mmol/L (3.5-5.1)
--- NOTE | 2024-07-18 17:09 | HMCIMG ---
CT ABD/PEL WO CON RENAL/APPY REASON: flank pain COMPARISON: 07/10/2024 FINDINGS: Lung bases are clear. There are no focal liver lesions. The liver does not appear enlarged.. Spleen and pancreas appear unremarkable. The gallbladder appears normal as well. There is a nephrostomy tube in the right kidney. There is a 5 mm stone in the mid right ureter at the L3-4 level. These findings are unchanged compared to previous study. There is no hydronephrosis. The left kidney appears unremarkable. Bowel loops appear unremarkable. This includes normal appearance of the appendix There is no evidence of free fluid or intraperitoneal air. There are no focal fluid collections. Aorta and retroperitoneum appear normal as do pelvic soft tissue structures. The anterior abdominal wall is intact. Osseous structures appear unremarkable. IMPRESSION: 1. 5 mm stone in the right mid ureter unchanged in position, there is a right nephrostomy catheter in place with no hydronephrosis 2. No new finding compared to prior study. CT was performed with one or more following dose reduction techniques: automated exposure control, adjustment of the mA and kv according to patient's size, or use of a iterative reconstruction technique.
[2024-07-18 17:30] LABS: APPEARANCE,URINE CLOUDY (CLEAR); BILIRUBIN,URINE NEGATIVE (NEGATIVE); COLOR,URINE LIGHT-YELLOW (YELLOW); GLUCOSE, URINE (UA) NEGATIVE (NEGATIVE); KETONES,URINE NEGATIVE (NEGATIVE); LEUKOCYTE ESTERASE ,URINE 500 Leu/uL (NEGATIVE); NITRATE,URINE NEGATIVE (NEGATIVE); OCCULT BLOOD,URINE LARGE (NEGATIVE); PH,URINE 6.5 (5.0-8.0); PROTEIN,URINE 70 mg/dL (NEGATIVE); UROBILINOGEN,URINE 0.2 mg/dL (0.2-1.0)
[2024-07-18 17:31] LABS: ADD UA MICROSCOPIC YES
[2024-07-18 17:37] LABS: BACTERIA,URINE RARE /HPF (None Seen); MUCUS,URINE RARE LPF (None Seen); RBC,URINE 51-100 /HPF (0-1); SQUAMOUS EPITHELIAL CELL,UR RARE /HPF (0-2); WBC,URINE 26-50 /HPF (0-1)
[2024-07-18] MEDS ORDERED: CIPR-278 PO (17:55)
[2024-07-18] MEDS: HYDROcodone/acetaMINOPHEN 10/325 MG TAB PO ONE (18:03)
[2024-07-18] MEDS: ketOROlac 60 MG VIAL (30MG/ML) IM ONE (18:04)
[2024-07-18 18:11] VITALS: BP 117/71; PULSE 81; RESP 17; TEMP 98.3; O2SAT 96
== END 2024-07-18 18:36 | disposition home or self-care (01) ==
LOC: EDH 14:23
DX: R10.9 Unspecified abdominal pain (principal); J45.909 Unspecified asthma, uncomplicated
CPT/HCPCS: 99285; 74176; 80048; 85025; 87086 ×2; 87186; 81001; 36415; 96372; J1885

== ENCOUNTER 2024-07-20 20:54 | Emergency (ER) | payer OTHER ==
[~2024-07-20] VITALS: Ht 154.9 cm; Wt 71.2 kg
[~2024-07-20 20:54] MED LIST changes: +CIPR-278 PO
[2024-07-20 21:33] LABS: APPEARANCE,URINE CLOUDY (CLEAR); BILIRUBIN,URINE 2 mg/dL (NEGATIVE); COLOR,URINE DARK-BROWN (YELLOW); GLUCOSE, URINE (UA) NEGATIVE (NEGATIVE); KETONES,URINE NEGATIVE (NEGATIVE); LEUKOCYTE ESTERASE ,URINE NEGATIVE Leu/uL (NEGATIVE); NITRATE,URINE 2+ (NEGATIVE); OCCULT BLOOD,URINE MODERATE (NEGATIVE); PH,URINE 5.5 (5.0-8.0); PROTEIN,URINE 50 mg/dL (NEGATIVE); UROBILINOGEN,URINE >=8.0 mg/dL (0.2-1.0)
[2024-07-20 21:34] LABS: ADD UA MICROSCOPIC YES
[2024-07-20 21:37] LABS: BASOPHILS # (AUTO) 0.02 K/uL (0.00-0.20); BASOPHILS % (AUTO) 0.3 % (0.0-5.0); EOSINOPHILS # (AUTO) 0.14 K/uL (0.00-0.70); EOSINOPHILS % (AUTO) 2.4 % (0.0-8.0); HEMATOCRIT 36.3 % (36-48); IMMATURE GRANULOCYTE ABSOLUTE 0.01 K/uL (0-1); LYMPHOCYTES # (AUTO) 1.9 K/uL (1.0-4.8); LYMPHOCYTES % (AUTO) 32.5 % (21.0-51.0); MEAN CORPUSCULAR HEMOGLOBIN 30.9 pg (27.0-33.0); MEAN CORPUSCULAR HGB CONC 33.6 g/dL (32.0-36.0); MEAN CORPUSCULAR VOLUME 91.9 fL (79-99); MONOCYTES # (AUTO) 0.5 K/uL (0.1-1.0); MONOCYTES % (AUTO) 8.6 % (3.0-13.0); NEUTROPHILS # (AUTO) 3.2 K/uL (1.8-7.7); PLATELET COUNT (AUTO) 322 K/uL (130-400); RED BLOOD CELL COUNT(AUTO) 3.95 MIL/uL (4.00-5.50); RED CELL DISTRIBUTION WIDTH 11.9 % (11.0-15.5); WHITE BLOOD COUNT (AUTO) 5.8 K/uL (4.8-10.8)
[2024-07-20 21:40] LABS: BACTERIA,URINE RARE /HPF (None Seen); CALCIUM OXALATE CRYSTALS,UR RARE /LPF (None Seen); MUCUS,URINE FEW LPF (None Seen); NON-SQUAMOUS EPITHELIAL CELL 2 /HPF (0-2); RBC,URINE 26-50 /HPF (0-1); SQUAMOUS EPITHELIAL CELL,UR FEW /HPF (0-2); UNCLASSIFIED CRYSTAL 18 /HPF (None Seen); WBC CLUMP RARE /HPF (0-1); YEAST,URINE BUDDING RARE /HPF (None Seen)
[2024-07-20] MEDS: ondanSETRON 4MG INJ IVP ONE (21:41)
[2024-07-20] MEDS: LACTATED RINGERS 1000ML 1,000 ML IV ONE (21:41)
[2024-07-20] MEDS: hydroMORPHone 1 MG INJ IVP ONE ×2 (21:42→23:13)
[2024-07-20] MEDS: ZOSYN 3.375GM +NS 50ML IV ONE (21:45)
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
[2024-07-20 21:51] LABS: POTASSIUM 4.4 mmol/L (3.5-5.1)
[2024-07-20] MEDS ORDERED: IOHEXOL-350 75 ML VIAL IV ONE (21:56)
[2024-07-20 22:02] LABS: AMYLASE 53 U/L (25-115); CREATINE KINASE, TOTAL 88 U/L (21-232)
--- NOTE | 2024-07-20 22:02 | NUR ---
PATIENT AT CT AT THIS TIME.
--- NOTE | 2024-07-20 22:31 | HMCIMG ---
CT ABDOMEN/PELVIS W/CONTRAST HISTORY: Abdominal pain COMPARISON: 07/18/2024 TECHNIQUE: Multiple sequential axial images of the abdomen and pelvis were obtained from the dome of the diaphragm through symphysis pubis. Patient was given 75 cc of Omnipaque through intravenous route. Oral contrast was not given. FINDINGS: No pleural effusion is seen bilaterally. There is no evidence of parenchymal disease or pulmonary nodule of the visualized lower lungs. Degenerative changes of the thoracolumbar spine are present. The heart is not enlarged. Liver measures 16 cm. Right percutaneous nephrostomy tube is seen. The liver, spleen, adrenal glands and pancreas are unremarkable. There is no evidence of hydronephrosis bilaterally. There is 5 mm right mid ureter stone unchanged. There may be tiny right renal pelvic stones. Fecal material is seen in the colon. There are normal size retroperitoneal and mesenteric lymph nodes. No ascites is seen. Atherosclerotic changes are present. Pelvic sidewalls are symmetric bilaterally. Bladder is poorly distended. IMPRESSION: 1. Right nephrostomy tube. 5 mm right mid ureter stone. Diverticulosis. CT was performed with one or more following dose reduction techniques: automated exposure control, adjustment of the mA and kv according to patient's size, or use of a iterative reconstruction technique.
[2024-07-21] MEDS ORDERED: HYDR-4064 PO (01:10)
[2024-07-21 01:24] VITALS: BP 122/80; PULSE 65; RESP 18; TEMP 98.4; O2SAT 99
== END 2024-07-21 01:25 | disposition home or self-care (01) ==
LOC: EDH 20:54
DX: N20.0 Calculus of kidney (principal); J45.909 Unspecified asthma, uncomplicated; E78.5 Hyperlipidemia, unspecified; I10 Essential (primary) hypertension; Z79.899 Other long term (current) drug therapy
CPT/HCPCS: 99285; 74177; 96374; 96375; 82150; 82550; 80048; 83690; 85025; 81001; 36415; J7120; J1171 ×2; J2405; J2543; Q9967

== ENCOUNTER 2024-07-29 20:46 | Emergency (ER) | payer OTHER ==
[~2024-07-29] VITALS: Ht 152.4 cm; Wt 61.2 kg
[~2024-07-29 20:46] MED LIST changes: +HYDR-4064 PO
[2024-07-29 20:48] VITALS: TEMP 96.8
[2024-07-29] MEDS: morPHINE 4 MG SYG IVP ONE (21:28)
[2024-07-29] MEDS: ondanSETRON 4MG INJ IVP ONE (21:28)
[2024-07-29] MEDS: LACTATED RINGERS 1000ML 1,000 ML IV ONE (21:28)
[2024-07-29 21:31] LABS: BASOPHILS # (AUTO) 0.02 K/uL (0.00-0.20); BASOPHILS % (AUTO) 0.4 % (0.0-5.0); EOSINOPHILS # (AUTO) 0.14 K/uL (0.00-0.70); HEMATOCRIT 37.5 % (36-48); IMMATURE GRANULOCYTE ABSOLUTE 0.02 K/uL (0-1); LYMPHOCYTES # (AUTO) 1.6 K/uL (1.0-4.8); LYMPHOCYTES % (AUTO) 33.3 % (21.0-51.0); MEAN CORPUSCULAR HEMOGLOBIN 30.8 pg (27.0-33.0); MEAN CORPUSCULAR HGB CONC 33.9 g/dL (32.0-36.0); MONOCYTES # (AUTO) 0.5 K/uL (0.1-1.0); MONOCYTES % (AUTO) 9.9 % (3.0-13.0); NEUTROPHILS # (AUTO) 2.5 K/uL (1.8-7.7); PLATELET COUNT (AUTO) 307 K/uL (130-400); RED BLOOD CELL COUNT(AUTO) 4.12 MIL/uL (4.00-5.50); RED CELL DISTRIBUTION WIDTH 11.6 % (11.0-15.5); WHITE BLOOD COUNT (AUTO) 4.7 K/uL (4.8-10.8)
[2024-07-29 21:42] LABS: CREATININE 0.8 mg/dL (0.5-1.0); POTASSIUM 3.6 mmol/L (3.5-5.1)
[2024-07-29 21:47] LABS: ALBUMIN 3.7 g/dL (3.5-5.0); BILIRUBIN,TOTAL 0.6 mg/dL (0.2-1.0); TOTAL PROTEIN, SERUM 7.4 g/dL (6.0-8.3)
--- NOTE | 2024-07-29 21:58 | ERN ---
General Chief Complaint: Multiple Complaints Stated Complaint: ABD PAIN, PAIN TO NEPHROSTOMY SITE Time Seen by MD: 20:56 History of Present Illness Initial Comments Ms. Dominguez is a very pleasant 54-year-old female with a history of nephrolithiasis with a right-sided nephrostomy tube who comes in today with a chief complaint of abdominal pain. Patient reports that she tripped over her nephrostomy tubing and is concerned that it might have been pulled out. Patient states that she has been having increased pain over the right and left lower quadrant. Allergies: Coded Allergies: No Known Drug Allergies (Unverified Allergy, Unknown, 04/04/22) Home Meds Active Scripts Hydrocodone/Acetaminophen (Hydrocodon-Acetaminoph 7.5-325) 7.5 Mg-325 Mg Tablet, 1 TAB PO TIDP PRN for pain for 2 Days, #5 TAB 0 Refills Prov:BIENVENIDO ARREAGA MD 07/21/24 Ciprofloxacin HCl (Cipro) 500 Mg Tablet, 1 TAB PO BID for 5 Days, #10 TAB 0 Refills Prov:CHI FIORE MD 07/18/24 Phenazopyridine HCl (Pyridium) 200 Mg Tablet, 200 MG PO TID for painful urination for 5 Days, #15 TAB 0 Refills Prov:MARCY GRIMES NP 07/10/24 Acetaminophen with Codeine (Acetaminophen-Cod #3 Tablet) 300 Mg-30 Mg Tablet, 1 TAB PO Q4H PRN for MODERATE TO SEVERE PAIN, #15 TAB 0 Refills Prov:MARCY GRIMES NP 07/10/24 Amoxicillin/Potassium Clav (Amox Tr-K Clv 875-125 mg Tab) 875 Mg-125 Mg Tablet, 1 EACH PO BID for 7 Days, #14 TAB 0 Refills Prov:MARCY GRIMES NP 07/10/24 Past Medical History Past Medical History: Asthma, Kidney Stone Medical History Other: HX OF KIDNEY STONES Past Surgical History: Other Surgical History Other: NEPHROSTOMY BAG Social History Social History: Negative, Lives with family Female( History) History: Not Applicable ROS Dictation Constitutional: Negative for fever,chills, and weight loss Eyes: Negative for injury, pain,redness, and discharge ENT: Negative for injury,pain or swelling Cardiovascular: Negative for chest pain, palpitations, and edema Respiratory: Negative for shortness of breath, cough, and wheezing, Abdomen/GI: Positive for abdominal pain Back: Positive for back pain : Negative for injury, bleeding and discharge MS/Extremity: Negative for injury and deformity Skin: Negative for rash, and discoloration Neuro: Negative for headache, weakness, numbness, tingling, and seizure Psych: Negative for suicide ideation, homicidal ideation, and hallucinations Physical Exam Physical Exam Dictation General: awake, alert, NAD Head/Face: Normocephalic, atraumatic Eyes: PERRL, ENT: oral cavity clear Neck: Trachea midline, supple Cardiovascular: RRR, normal S1/S2 Respiratory: CTAB, no respiratory distress, No rales or wheezes Abdomen: Soft, non-tender, non-distended, normal bowel sounds Skin: Warm, dry, normal turgor, no rash MS/Extremity: Nephrostomy tube appears to be intact Neuro: COAx4, GCS 15 Results Laboratory and Microbiology Lab and Micro Result Laboratory Tests Test 07/29/24 21:21 07/29/24 23:43 White Blood Count 4.7 K/uL (4.8-10.8) L Red Blood Count 4.12 MIL/uL (4.00-5.50) Hemoglobin 12.7 g/dL (12.0-16.0) Hematocrit 37.5 % (36-48) Mean Corpuscular Volume 91.0 fL (79-99) Mean Corpuscular Hemoglobin 30.8 pg (27.0-33.0) Mean Corpuscular Hemoglobin Concent 33.9 g/dL (32.0-36.0) Red Cell Distribution Width 11.6 % (11.0-15.5) Platelet Count 307 K/uL (130-400) Mean Platelet Volume 9.0 fL (7.5-10.5) Immature Granulocyte % (Auto) 0.4 % (0-1) Neutrophils (%) (Auto) 53.0 % (40.0-77.0) Lymphocytes (%) (Auto) 33.3 % (21.0-51.0) Monocytes (%) (Auto) 9.9 % (3.0-13.0) Eosinophils (%) (Auto) 3.0 % (0.0-8.0) Basophils (%) (Auto) 0.4 % (0.0-5.0) Neutrophils # (Auto) 2.5 K/uL (1.8-7.7) Lymphocytes # (Auto) 1.6 K/uL (1.0-4.8) Monocytes # (Auto) 0.5 K/uL (0.1-1.0) Eosinophils # (Auto) 0.14 K/uL (0.00-0.70) Basophils # (Auto) 0.02 K/uL (0.00-0.20) Absolute Immature Granulocyte (auto 0.02 K/uL (0-1) Nucleated Red Blood Cells 0.0 % (0.0-0.19) Sodium Level 138 mmol/L (136-145) Potassium Level 3.6 mmol/L (3.5-5.1) Chloride Level 100 mmol/L (101-111) L Carbon Dioxide Level 33 mmol/L (21-32) H Blood Urea Nitrogen 16 mg/dL (7-18) Creatinine 0.8 mg/dL (0.5-1.0) Glomerular Filtration Rate Calc 88 mL/min (>90) Random Glucose 88 mg/dL (70-105) Total Calcium 9.3 mg/dL (8.5-10.1) Total Bilirubin 0.6 mg/dL (0.2-1.0) Aspartate Amino Transf (AST/SGOT) 14 U/L (10-37) Alanine Aminotransferase (ALT/SGPT) 19 U/L (12-78) Alkaline Phosphatase 109 U/L (50-136) Total Protein 7.4 g/dL (6.0-8.3) Albumin 3.7 g/dL (3.5-5.0) Urine Color COLORLESS (YELLOW) Urine Appearance CLEAR (CLEAR) Urine pH 7.0 (5.0-8.0) Urine Specific [place] 1.019 (1.001-1.031) Urine Protein NEGATIVE mg/dL (NEGATIVE) Urine Glucose (UA) NEGATIVE mg/dL (NEGATIVE) Urine Ketones NEGATIVE mg/dL (NEGATIVE) Urine Occult Blood NEGATIVE (NEGATIVE) Urine Nitrate NEGATIVE (NEGATIVE) Urine Bilirubin NEGATIVE mg/dL (NEGATIVE) Urine Urobilinogen 0.2 mg/dL (0.2-1.0) Urine Leukocyte Esterase NEGATIVE Angela/uL MDM Patient's CT shows nephrostomy tube is in the renal pelvis. Patient was feeling defect likely related to stone. Patient was currently following up with Urology. MDM: Differential diagnosis: Nephrostomy tube problem Rationale: Tests considered and ordered secondary to shared decision making include: Previous outside records reviewed: Old ER visits. Risk of complication and/or morbidity or mortality of patient management: None Medications-Per medication reconciliation Need for hospitalization: Patient does not meet criteria for hospitalization. Need for emergency major/minor surgery: No There are no social concerns with this patient. Prescription drug management Prescriptions will include symptomatic care Patient's prior external medical records from other ER visits were reviewed by me as indicated. Prior testing and results from previous visits were reviewed. Prior tests were taken into account with medical decision making and resource utilization, independent historian/historians were used to obtain complete medical history. I independently interpreted the test that were performed, results were reviewed by me and considered findings on radiology if ordered. Medical management and examination interpretation discussions were had by me with other qualified healthcare professionals as indicated for the patient's care. ED Course Orders Procedure Category Date Status Time Cbc With Differential LAB 07/29/24 Complete 21:02 Comprehensive LAB 07/29/24 Complete Metabolic Panel 21:02 Urinalysis Profile LAB 07/29/24 In Process 21:02 Ct Abdomen/Pelvis CT 07/29/24 Resulted W/Contrast 21:02 Lactated Ringers PHA 07/29/24 Complete 1000ml (Lactated 21:30 Morphine 4mg Syg PHA 07/29/24 Complete (Morphine 4mg Syg) 21:30 Ondansetron 4mg Inj PHA 07/29/24 Complete (Zofran 4mg Inj) 21:30 Iohexol (Omnipaque) PHA 07/29/24 Complete 22:06 Hydrocortisone 1% PHA 07/29/24 In Process Cream (Cortrisone 1% C 23:30 Current Medications Medications (Trade) Dose Ordered Sig/Juan Route PRN Reason Start Time Stop Time Status Last Admin Dose Admin Hydrocortisone (corTRIsone 1% CREAM) 1 appl ONCE TP 07/29/24 23:30 08/28/24 23:29 07/29/24 23:31 Iohexol (Omnipaque) 75 ml STK-MED ONCE IV 07/29/24 22:06 07/29/24 22:06 DC Lactated Ringer's 1,000 ml @ 0 mls/hr ONCE ONCE IV 07/29/24 21:30 07/29/24 21:31 DC 07/29/24 21:28 Morphine Sulfate (morPHINE 4MG SYG) 4 mg ONCE ONCE IVP 07/29/24 21:30 07/29/24 21:31 DC 07/29/24 21:28 Ondansetron HCl (zoFRAN 4MG INJ) 4 mg ONCE ONCE IVP 07/29/24 21:30 07/29/24 21:31 DC 07/29/24 21:28 Vital Signs Date Time Temp Pulse Resp B/P (MAP) Pulse Ox O2 Delivery O2 Flow Rate FiO2 07/29/24 21:39 52 16 132/75 99 Room Air* 0 21 07/29/24 20:48 96.8 78 20 136/85 100 Room Air DX & DISP Disposition: Discharge Departure Impression: Primary Impression: Nephrostomy status Condition: Stable Additional Instructions: Please follow up with your primary care physician for continuance of care in the next 1-7 days. Please follow up with Urology to further managing nephrostomy tube which appears to be in the right location. Please take [id number] hydrocortisone 1% for your rash. Please continue to do daily dressing changes to keep your nephrostomy tube in good condition. Referrals: AIDE HINTON PA-C (PCP) BIENVENIDO ARREAGA MD Jul 29, 2024 21:58
[2024-07-29] MEDS ORDERED: IOHEXOL-350 75 ML VIAL IV ONE (22:06)
--- NOTE | 2024-07-29 22:10 | NUR ---
PT TO CT AT THIS TIME.
--- NOTE | 2024-07-29 22:32 | NUR ---
PT BACK FROM CT AT THIS TIME.
--- NOTE | 2024-07-29 22:38 | HMCIMG ---
CT ABDOMEN/PELVIS W/CONTRAST HISTORY: Abdominal pain COMPARISON: 07/20/2024 TECHNIQUE: Multiple sequential axial images of the abdomen and pelvis were obtained from the dome of the diaphragm through symphysis pubis. Patient was given 75 cc of Omnipaque through intravenous route. Oral contrast was not given. FINDINGS: No pleural effusion is seen bilaterally. There is no evidence of parenchymal disease or pulmonary nodule of the visualized lower lungs. Degenerative changes of the thoracolumbar spine are present. The heart is not enlarged. Liver measures 16 cm. Right nephrostomy tube is seen in place. The liver, spleen, adrenal glands and pancreas are unremarkable. There is no evidence of hydronephrosis bilaterally. No evidence of renal stone is seen. Fecal material is seen in the colon. There are normal size retroperitoneal and mesenteric lymph nodes. No ascites is seen. Appendix is not well seen limiting evaluation. There is mild diverticulosis. Pelvic sidewalls are symmetric bilaterally. Bladder is well distended without wall thickening. There is filling defect noted at the lateral wall of the bladder measuring 17 mm a bladder mass not excluded. Clinical correlation is recommended. IMPRESSION: 1. Right nephrostomy tube is seen with distal tip in the right renal pelvis. Diverticulosis. There is filling defect noted at the lateral wall of the bladder measuring 17 mm a bladder mass not excluded. Clinical correlation is recommended. CT was performed with one or more following dose reduction techniques: automated exposure control, adjustment of the mA and kv according to patient's size, or use of a iterative reconstruction technique.
[2024-07-29] MEDS: HydroCORTISONE 1% CREAM 28G TP SCH (23:31)
[2024-07-29 23:54] LABS: APPEARANCE,URINE CLEAR (CLEAR); BILIRUBIN,URINE NEGATIVE (NEGATIVE); COLOR,URINE COLORLESS (YELLOW); GLUCOSE, URINE (UA) NEGATIVE (NEGATIVE); KETONES,URINE NEGATIVE (NEGATIVE); LEUKOCYTE ESTERASE ,URINE NEGATIVE Leu/uL (NEGATIVE); NITRATE,URINE NEGATIVE (NEGATIVE); OCCULT BLOOD,URINE NEGATIVE (NEGATIVE); PROTEIN,URINE NEGATIVE (NEGATIVE); UROBILINOGEN,URINE 0.2 mg/dL (0.2-1.0)
[2024-07-29 23:55] LABS: ADD UA MICROSCOPIC YES
[2024-07-29 23:58] LABS: BACTERIA,URINE FEW /HPF (None Seen); MUCUS,URINE RARE LPF (None Seen); SQUAMOUS EPITHELIAL CELL,UR RARE /HPF (0-2)
[2024-07-30 00:07] VITALS: BP 143/80; PULSE 52; RESP 18; O2SAT 98
== END 2024-07-30 00:17 | disposition home or self-care (01) ==
LOC: EDH 20:49
DX: N99.528 Other complication of incontinent external stoma of urinary tract (principal); J45.909 Unspecified asthma, uncomplicated
CPT/HCPCS: 99285; 74177; 96374; 96375; 80053; 85025; 81001; 36415; J7120; J2405; J2270; Q9967

== ENCOUNTER 2024-08-15 22:00 | Emergency (ER) | payer OTHER ==
[~2024-08-15] VITALS: Ht 154.9 cm; Wt 67.6 kg
--- NOTE | 2024-08-15 22:19 | ERN ---
ED Note History of Present Illness Stated Complaint: C/O RT FLANK PAIN; NEPHROSTOMY BAG IN PLACE (07/04) Chief Complaint: Flank Pain Time Seen by MD: 22:06 Dictation: This is a 54-year-old female who presented to the emergency room with complaints of right flank pain. She has a known history of nephrostomy tube that was placed on 07/04/2024. She was seen on another occasion in the emergency room when she was concerned about the tube getting tugged and pulled and it seemed to be functioning fine. No hematuria, no fevers chills or rigors. She stated that she had her right flank pain is so severe that she has not been able to sleep. Temperature 98.8 pulse 74 respirations 20 blood pressure 125/88 with a pulse oximetry of 98% on room air Allergies: Coded Allergies: No Known Drug Allergies (Unverified Allergy, Unknown, 04/04/22) Home Meds Active Scripts Hydrocodone/Acetaminophen (Hydrocodon-Acetaminoph 7.5-325) 7.5 Mg-325 Mg Tablet, 1 TAB PO TIDP PRN for pain for 2 Days, #5 TAB 0 Refills Prov:BIENVENIDO ARREAGA MD 07/21/24 Ciprofloxacin HCl (Cipro) 500 Mg Tablet, 1 TAB PO BID for 5 Days, #10 TAB 0 Refills Prov:CHI FIORE MD 07/18/24 Phenazopyridine HCl (Pyridium) 200 Mg Tablet, 200 MG PO TID for painful urination for 5 Days, #15 TAB 0 Refills Prov:MARCY GRIMES NP 07/10/24 Acetaminophen with Codeine (Acetaminophen-Cod #3 Tablet) 300 Mg-30 Mg Tablet, 1 TAB PO Q4H PRN for MODERATE TO SEVERE PAIN, #15 TAB 0 Refills Prov:MARCY GRIMES NP 07/10/24 Amoxicillin/Potassium Clav (Amox Tr-K Clv 875-125 mg Tab) 875 Mg-125 Mg Tablet, 1 EACH PO BID for 7 Days, #14 TAB 0 Refills Prov:MARCY GRIMES NP 07/10/24 Past Medical History Past Medical History: Asthma, Other Additional Past Medical Hx: KIDNEY STONES Surgical History: Other Surgical History Other: NEPHROSTOMY BAG; Social History: Negative, Lives with family History: Not Applicable RN Note Reviewed/Agreed w/PFSH: Yes Review of System Dictation Constitutional: Negative for fever,chills, and weight loss Eyes: Negative for injury, pain,redness, and discharge ENT: Negative for injury,pain or swelling Cardiovascular: Negative for chest pain, palpitations, and edema Respiratory: Negative for shortness of breath, cough, and wheezing, Abdomen/GI: Negative for abdominal pain, nausea, vomiting, diarrhea, and constipation Back: Negative for injury and pain : Negative for injury, bleeding and discharge right flank pain MS/Extremity: Negative for injury and deformity Skin: Negative for rash, and discoloration Neuro: Negative for headache, weakness, numbness, tingling, and seizure Psych: Negative for suicide ideation, homicidal ideation, and hallucinations Initial Vital Sign VS Vital Signs Date Time Temp Pulse Resp B/P (MAP) Pulse Ox O2 Delivery O2 Flow Rate FiO2 08/15/24 22:03 98.8 74 20 125/88 98 Room Air 08/15/24 22:35 0 21 Physical Exam Dictation General: awake, alert, NAD overweight female looks sick Head/Face: Normocephalic, atraumatic Eyes: PERRL, EOMI, vision at baseline ENT: oral cavity clear, TMs clear, no signs of infection Neck: Trachea midline, supple, no nuchal rigidity Cardiovascular: RRR, normal S1/S2, No MRGs, no JVD Respiratory: CTAB, no respiratory distress, No rales or wheezes Abdomen: Soft, non-tender, non-distended, normal bowel sounds, no guarding or r ebound. Right flank area there is a nephrostomy tube in place which is draining striae low urine with mild sediment. Skin: Warm, dry, normal turgor, no rash MS/Extremity: Pulses equal, no cyanosis, neurovascular intact, FROM Neuro: COAx4, GCS 15, strength 5/5, CN 2-12 intact, normal cerebellar exam, normal gait, Psych: Normal behavior, mood, and affect normal Extremities-trace edema without any palpable cords, Homans sign is negative Results (Laboratory/Radiology) Laboratory/Radiology Laboratory Tests Test 08/15/24 22:26 White Blood Count 6.0 K/uL (4.8-10.8) Red Blood Count 4.04 MIL/uL (4.00-5.50) Hemoglobin 12.6 g/dL (12.0-16.0) Hematocrit 36.2 % (36-48) Mean Corpuscular Volume 89.6 fL (79-99) Mean Corpuscular Hemoglobin 31.2 pg (27.0-33.0) Mean Corpuscular Hemoglobin Concent 34.8 g/dL (32.0-36.0) Red Cell Distribution Width 11.7 % (11.0-15.5) Platelet Count 289 K/uL (130-400) Mean Platelet Volume 9.1 fL (7.5-10.5) Immature Granulocyte % (Auto) 0.2 % (0-1) Neutrophils (%) (Auto) 61.0 % (40.0-77.0) Lymphocytes (%) (Auto) 25.2 % (21.0-51.0) Monocytes (%) (Auto) 10.1 % (3.0-13.0) Eosinophils (%) (Auto) 3.2 % (0.0-8.0) Basophils (%) (Auto) 0.3 % (0.0-5.0) Neutrophils # (Auto) 3.7 K/uL (1.8-7.7) Lymphocytes # (Auto) 1.5 K/uL (1.0-4.8) Monocytes # (Auto) 0.6 K/uL (0.1-1.0) Eosinophils # (Auto) 0.19 K/uL (0.00-0.70) Basophils # (Auto) 0.02 K/uL (0.00-0.20) Absolute Immature Granulocyte (auto 0.01 K/uL (0-1) Nucleated Red Blood Cells 0.0 % (0.0-0.19) Sodium Level 143 mmol/L (136-145) Potassium Level 3.9 mmol/L (3.5-5.1) Chloride Level 106 mmol/L (101-111) Carbon Dioxide Level 29 mmol/L (21-32) Blood Urea Nitrogen 16 mg/dL (7-18) Creatinine 0.9 mg/dL (0.5-1.0) Glomerular Filtration Rate Calc 76 mL/min (>90) Random Glucose 92 mg/dL (70-105) Total Calcium 9.6 mg/dL (8.5-10.1) Labs Reviewed?: Yes CT Scan Comment: PATIENT: FRANCESCO BANRARD MR#: [id number] : 1970 SEX: F AGE: 54 LOCATION: [facility] ORDER 20 STATUS: REG ER REPORT#: [id number] SERVICE 18 REASON: Indwelling Right Nephrostomy, Acute right flank pain. ORDERING PHYSICIAN: LINDSAY FINE MD PROCEDURE: ABD PELVWO - CT ABD/PEL WO CON RENAL/APPY CT ABD/PEL WO CON RENAL/APPY HISTORY: Right flank pain COMPARISON: 07/29/2024 TECHNIQUE: Multiple sequential axial images of the abdomen and pelvis were obtained from the dome of the diaphragm through symphysis pubis. Patient was not given contrast through intravenous route. Oral contrast was not given. FINDINGS: No pleural effusion is seen bilaterally. There is no evidence of parenchymal disease or pulmonary nodule of the visualized lower lungs. Degenerative changes of the thoracolumbar spine are present. The heart is not enlarged. The liver, spleen, adrenal glands and pancreas are unremarkable. Right nephrostomy tube is seen with distal tip in the right renal pelvis. There is no evidence of hydronephrosis bilaterally. No evidence of renal stone is seen. Fecal material is seen in the colon. There are normal size retroperitoneal and mesenteric lymph nodes. No ascites is seen. Appendix is not well seen limiting evaluation. Pelvic sidewalls are symmetric bilaterally. Bladder is poorly distended. IMPRESSION: 1. No hydronephrosis seen. Right percutaneous nephrostomy tube is seen with distal tip in the right renal pelvis. No ascites is seen. CT was performed with one or more following dose reduction techniques: automated exposure control, adjustment of the mA and kv according to patient's size, or use of a iterative reconstruction technique. DICTATED BY: ISELA ISAAC MD DATE: 08/15/242249 ELECTRONICALLY SIGNED BY: ISELA ISAAC MD DATE: 08/15/242252 ED Course ED Course Orders Procedure Category Date Status Time Cbc With Differential LAB 08/15/24 Complete 22:05 Basic Metabolic Panel LAB 08/15/24 Complete 22:05 Urinalysis Profile LAB 08/15/24 Logged 22:05 Morphine 2mg Syg PHA 08/15/24 Complete (Morphine 2mg Syg) 22:30 Ct Abd/Pel Wo Con CT 08/15/24 Resulted Renal/Appy 22:19 0.9% Nacl 500ml PHA 08/15/24 Complete Iv.Soln (Ns 500ml 22:30 Hydromorphone 0.5mg PHA 08/15/24 Complete Syg (Dilaudid 0.5mg 23:30 Current Medications Medications (Trade) Dose Ordered Sig/Juan Route PRN Reason Start Time Stop Time Status Last Admin Dose Admin Hydromorphone HCl (DiLAUDid 0.5MG INJ) 0.5 mg ONCE ONCE IVP 08/15/24 23:30 08/15/24 23:31 DC 08/15/24 23:36 Morphine Sulfate (morPHINE 2MG SYG) 2 mg ONCE ONCE IM 08/15/24 22:30 08/15/24 22:31 DC 08/15/24 22:31 Sodium Chloride 500 ml @ 0 mls/hr ONCE ONCE IV 08/15/24 22:30 08/15/24 22:31 DC 08/15/24 22:31 Vital Signs Date Time Temp Pulse Resp B/P (MAP) Pulse Ox O2 Delivery O2 Flow Rate FiO2 08/15/24 22:35 98.4 75 18 125/65 99 Room Air* 0 21 08/15/24 22:03 98.8 74 20 125/88 98 Room Air We will perform diagnostic labs, advanced imaging and administer medications according to the patient's complaint. Once the results are available, will review and personally interpreted the labs to rule out any acute life- threatening emergency the trach require immediate intervention and treatment. I will then re-evaluate the patient after treatment and diagnostic exams have return to determine whether the patient requires any further testing, can safely be discharged home or need further admission to hospital for additional treatment and evaluation. Labs reviewed CBC BNP 7 is with a normal limits. CT scan of the abdomen showed appropriate placement of the nephrostomy tube in the renal pelvis. No evidence of any stone or any other abnormality. Medical Decision Making MDM MDM: Differential diagnosis: Pyelonephritis, mechanical effects of the nephrostomy tube, new kidney stone with renal colic Rationale: Tests considered and ordered secondary to shared decision making include: Previous outside records reviewed: Old ER visits. Risk of complication and/or morbidity or mortality of patient management: None Medications-Per medication reconciliation Need for hospitalization: Patient does not meet criteria for hospitalization. Need for emergency major/minor surgery: No There are no social concerns with this patient. Prescription drug management Prescriptions will include symptomatic care Patient's prior external medical records from other ER visits were reviewed by me as indicated. Prior testing and results from previous visits were reviewed. Prior tests were taken into account with medical decision making and resource utilization, independent historian/historians were used to obtain complete medical history. I independently interpreted the test that were performed, results were reviewed by me and considered findings on radiology if ordered. Medical management and examination interpretation discussions were had by me with other qualified healthcare professionals as indicated for the patient's care. Problem List Problem List: (1) Acute right flank pain (2) Renal stone (3) Medically noncompliant (4) Nephrostomy status DX & DISP Disposition: Discharge Departure Impression: Primary Impression: Acute right flank pain Additional Impressions: Renal calculus, right, Medically noncompliant, Nephrostomy status Condition: Stable Scripts Acetaminophen with Codeine (Acetaminophen-Cod #3 Tablet) 300 Mg-30 Mg Tablet 1 TAB PO Q4H PRN for PAIN LEVEL 6 TO 10, #15 TAB Prov: LINDSAY FINE MD 08/16/24 Additional Instructions: Patient and the caregiver have been informed of all the diagnostic tests and the imaging conducted during the today's visit to the emergency room and has v erbalized understanding of the results I have personally reviewed and interpreted all diagnostic exams performed here in the ER today as well as the vital signs documented by the nursing staff. The patient is now being discharged to home and should follow up with the primary care physician or the specialist as directed by the ER staff. Follow-up with primary care provider in 1 to 2 days. Take medications as directed here in the emergency room. Okay to continue home medications unless otherwise discussed during your visit in the emergency room today. Return to your nearest emergency room if symptoms worsen or if there is no improvement. Call 911 if you need immediate assistance. Take Tylenol or Motrin [id number] as needed and if no contraindications are present. Increase oral hydration. A wound culture or urine culture was ordered here in the emergency room department please follow-up with primary care provider and advise them to get repeat ports from our facility. If you had any Gary wrap/splints that were applied here, please do not remove them until you see your primary care or specialty. Referrals: AIDE HINTON PA-C (PCP) LINDSAY FINE MD Aug 15, 2024 22:19
[2024-08-15] MEDS: 0.9% NACL 500ML IV.SOLN 500 ML IV ONE (22:31)
[2024-08-15] MEDS: morPHINE 2 MG SYG IM ONE (22:31)
--- NOTE | 2024-08-15 22:53 | HMCIMG ---
CT ABD/PEL WO CON RENAL/APPY HISTORY: Right flank pain COMPARISON: 07/29/2024 TECHNIQUE: Multiple sequential axial images of the abdomen and pelvis were obtained from the dome of the diaphragm through symphysis pubis. Patient was not given contrast through intravenous route. Oral contrast was not given. FINDINGS: No pleural effusion is seen bilaterally. There is no evidence of parenchymal disease or pulmonary nodule of the visualized lower lungs. Degenerative changes of the thoracolumbar spine are present. The heart is not enlarged. The liver, spleen, adrenal glands and pancreas are unremarkable. Right nephrostomy tube is seen with distal tip in the right renal pelvis. There is no evidence of hydronephrosis bilaterally. No evidence of renal stone is seen. Fecal material is seen in the colon. There are normal size retroperitoneal and mesenteric lymph nodes. No ascites is seen. Appendix is not well seen limiting evaluation. Pelvic sidewalls are symmetric bilaterally. Bladder is poorly distended. IMPRESSION: 1. No hydronephrosis seen. Right percutaneous nephrostomy tube is seen with distal tip in the right renal pelvis. No ascites is seen. CT was performed with one or more following dose reduction techniques: automated exposure control, adjustment of the mA and kv according to patient's size, or use of a iterative reconstruction technique.
[2024-08-15 22:56] LABS: BASOPHILS # (AUTO) 0.02 K/uL (0.00-0.20); BASOPHILS % (AUTO) 0.3 % (0.0-5.0); EOSINOPHILS # (AUTO) 0.19 K/uL (0.00-0.70); EOSINOPHILS % (AUTO) 3.2 % (0.0-8.0); HEMATOCRIT 36.2 % (36-48); IMMATURE GRANULOCYTE ABSOLUTE 0.01 K/uL (0-1); LYMPHOCYTES # (AUTO) 1.5 K/uL (1.0-4.8); LYMPHOCYTES % (AUTO) 25.2 % (21.0-51.0); MEAN CORPUSCULAR HEMOGLOBIN 31.2 pg (27.0-33.0); MEAN CORPUSCULAR HGB CONC 34.8 g/dL (32.0-36.0); MEAN CORPUSCULAR VOLUME 89.6 fL (79-99); MONOCYTES # (AUTO) 0.6 K/uL (0.1-1.0); MONOCYTES % (AUTO) 10.1 % (3.0-13.0); NEUTROPHILS # (AUTO) 3.7 K/uL (1.8-7.7); PLATELET COUNT (AUTO) 289 K/uL (130-400); RED BLOOD CELL COUNT(AUTO) 4.04 MIL/uL (4.00-5.50); RED CELL DISTRIBUTION WIDTH 11.7 % (11.0-15.5)
[2024-08-15 23:14] LABS: CREATININE 0.9 mg/dL (0.5-1.0); POTASSIUM 3.9 mmol/L (3.5-5.1)
[2024-08-15] MEDS: hydroMORPHone 0.5 MG SYG (0.5MG/0.5ML) IVP ONE (23:36)
[2024-08-16] MEDS ORDERED: ACET-2079 PO (00:24)
[2024-08-16 00:44] VITALS: BP 120/59; PULSE 70; RESP 18; TEMP 98.3; O2SAT 98
== END 2024-08-16 00:55 | disposition home or self-care (01) ==
LOC: EDH 22:00
DX: N20.0 Calculus of kidney (principal); J45.909 Unspecified asthma, uncomplicated; Z91.199 Patient's noncompliance with other medical treatment and regimen due to unspecified reason; Z93.6 Other artificial openings of urinary tract status
CPT/HCPCS: 99285; 74176; 96374; 96375; 80048; 85025; 36415; J7040; J2270; J1171; 96372

== ENCOUNTER 2024-08-23 21:47 | Emergency (ER) | payer OTHER ==
[~2024-08-23] VITALS: Ht 154.9 cm; Wt 71.7 kg
--- NOTE | 2024-08-23 22:16 | ERN ---
ED Note History of Present Illness Stated Complaint: C/O LOWER BACK PAIN, NEPHROSTOMY BAG IN PLACE Chief Complaint: Back Pain-No Injury Time Seen by MD: 21:57 Dictation: PATIENT IS A 54-YEAR-OLD FEMALE HERE WITH A NEPHROSTOMY TUBE THAT WAS PLACED AT THIS HOSPITAL SEVERAL WEEKS AGO. SHE IS COMING IN TONIGHT WITH COMPLAINING OF PAIN AT THE SITE OF THE INSERTION HOWEVER STATES THAT THE NEPHROSTOMY TUBE IS DRAINING AND IS CLEAR URINE NOTED IN THE DRAIN BAG. SHE STATES SHE ALSO HAS DEVELOPED A RASH AROUND THE INSERTION SITE WHERE THE TAPE HAS BEEN PLACE. NO FEVER NO CHILLS NO NAUSEA VOMITING. SHE STATES SHE HAS NOTA BEEN ABLE TO SEE SINCE SHE HAD THE NEPHROSTOMY TUBE PLACED. Allergies: Coded Allergies: No Known Drug Allergies (Unverified Allergy, Unknown, 04/04/22) Home Meds Active Scripts Acetaminophen with Codeine (Acetaminophen-Cod #3 Tablet) 300 Mg-30 Mg Tablet, 1 TAB PO Q4H PRN for PAIN LEVEL 6 TO 10, #15 TAB Prov:LINDSAY FINE MD 08/16/24 Hydrocodone/Acetaminophen (Hydrocodon-Acetaminoph 7.5-325) 7.5 Mg-325 Mg Tablet, 1 TAB PO TIDP PRN for pain for 2 Days, #5 TAB 0 Refills Prov:BIENVENIDO ARREAGA MD 07/21/24 Ciprofloxacin HCl (Cipro) 500 Mg Tablet, 1 TAB PO BID for 5 Days, #10 TAB 0 Refills Prov:CHI FIORE MD 07/18/24 Phenazopyridine HCl (Pyridium) 200 Mg Tablet, 200 MG PO TID for painful urination for 5 Days, #15 TAB 0 Refills Prov:MARCY GRIMES NP 07/10/24 Acetaminophen with Codeine (Acetaminophen-Cod #3 Tablet) 300 Mg-30 Mg Tablet, 1 TAB PO Q4H PRN for MODERATE TO SEVERE PAIN, #15 TAB 0 Refills Prov:MARCY GRIMES NP 07/10/24 Amoxicillin/Potassium Clav (Amox Tr-K Clv 875-125 mg Tab) 875 Mg-125 Mg Tablet, 1 EACH PO BID for 7 Days, #14 TAB 0 Refills Prov:MARCY GRIMES NP 07/10/24 Past Medical History Past Medical History: Asthma, Other Additional Past Medical Hx: HX OF KIDNEY STONES Surgical History: Other Surgical History Other: NEPHROSTOMY BAG Social History: Negative, Lives with family History: Not Applicable RN Note Reviewed/Agreed w/PFSH: Yes Review of System Dictation CONSTITUTIONAL: NEGATIVE EXCEPT FOR HPI HEAD/FACE: NEGATIVE EXCEPT FOR HPI EENT: NEGATIVE EXCEPT FOR HPI RESPIRATORY: NEGATIVE EXCEPT FOR HPI GASTROINTESTINAL/ABDOMINAL: NEGATIVE EXCEPT FOR HPI RIGHT FLANK PAIN GENITOURINARY: NEGATIVE EXCEPT FOR HPI MUSCULOSKELETAL: NEGATIVE EXCEPT FOR HPI INTEGUMENTARY: NEGATIVE EXCEPT FOR HPI NEUROLOGICAL/PSYCH: NEGATIVE EXCEPT FOR HPI HEMATOLOGIC/LYMPHATIC: NEGATIVE EXCEPT FOR HPI ALL SYSTEMS NEGATIVE, EXCEPT NOTED ABOVE. 13 POINT REVIEW OF SYSTEMS ASSESSED AND ALL NEGATIVE EXCEPT FOR ABOVE. Initial Vital Sign VS Vital Signs Date Time Temp Pulse Resp B/P (MAP) Pulse Ox O2 Delivery O2 Flow Rate FiO2 08/23/24 21:51 98.4 89 20 134/81 96 Room Air Physical Exam Dictation VITAL SIGNS REVIEWED GENERAL APPEARANCE: ALERT, ORIENTED X 3, MILD ACUTE DISTRESS, WELL DEVELOPED, NO URISHED. HEAD AND FACE: NON-TRAUMATIC. EYES: PERRL, PINK CONJUNCTIVAS, EYELID NO TRAUMA, ANTERIOR CHAMBER WITH ARCUS SENILIS. EARS: PINNAS INTACT AND NO SIGNS OF TRAUMA OR ERYTHEMA EAR CANALS CLEAR AND NO DISCHARGE TM NO ERYTHEMA NOSE: NO DISCHARGE, NO BLEEDING. OROPHARYNX: MOUTH NORMAL, TONGUE PINK, PHARYNX CLEAR,NO ERYTHEMA, TONSILS NO EXUDATES, NO ABSCESSES NOTED, MUCOUS M EMBRANE MOIST NECK: SUPPLE, NON-TENDER, NO THYROMEGALY, NO MASSES, NO JVD, NO BRUITS BREAST:DEFERRED CHEST:NO TENDERNESS, NO CREPITUS, NO PARADOXICAL MOVEMENT, NO RETRACTIONS LUNGS:CLEAR, WELL-VENTILATED, SYMMETRIC, NO RALES, NO WHEEZING, NO RHONCHI, NO STRIDOR, GOOD BREATH SOUNDS BILATERALLY HEART: REGULAR RATE, REGULAR RHYTHM, NO MURMUR, NO GALLOPS VASCULAR: NO PERIPHERAL EDEMA, ABDOMEN: SOFT, POSITIVE BOWEL SOUNDS, NONDISTENDED, NO GUARDING, NONTENDER, NO REBOUND, NO MASSES NO HEPATOMEGALY, NO SPLENOMEGALY, NO PEACE'S SIGN, NO HERNIAS. RECTAL: DEFERRED GENITAL: DEFERRED RIGHT FLANK NEPHROSTOMY TUBE IN PLACE WITH RASH NOTED TO TAPE SECURING THE TWO. CLEAR URINE IN THE DRAIN BAG. NEUROLOGICAL: NORMAL SPEECH, MOTOR FUNCTION INTACT, SENSORY FUNCTION INTACT MUSCULOSKELETAL: NECK NONTENDER, FULL RANGE OF MOTION, BACK NONTENDER, FULL RANGE OF MOTION, EXTREMITIES: NONTENDER, FULL RANGE OF MOTION SKIN: COLOR PINK, DRY, NO TURGOR, NO RASH, NO LACERATIONS, NO ABRASIONS, NO CONTUSIONS. LYMPHATIC: DEFERRED Results (Laboratory/Radiology) Laboratory/Radiology Laboratory Tests Test 08/23/24 22:17 White Blood Count 6.6 K/uL (4.8-10.8) Red Blood Count 3.93 MIL/uL (4.00-5.50) L Hemoglobin 12.1 g/dL (12.0-16.0) Hematocrit 35.5 % (36-48) L Mean Corpuscular Volume 90.3 fL (79-99) Mean Corpuscular Hemoglobin 30.8 pg (27.0-33.0) Mean Corpuscular Hemoglobin Concent 34.1 g/dL (32.0-36.0) Red Cell Distribution Width 11.6 % (11.0-15.5) Platelet Count 277 K/uL (130-400) Mean Platelet Volume 8.7 fL (7.5-10.5) Immature Granulocyte % (Auto) 0.2 % (0-1) Neutrophils (%) (Auto) 60.8 % (40.0-77.0) Lymphocytes (%) (Auto) 27.9 % (21.0-51.0) Monocytes (%) (Auto) 9.1 % (3.0-13.0) Eosinophils (%) (Auto) 1.8 % (0.0-8.0) Basophils (%) (Auto) 0.2 % (0.0-5.0) Neutrophils # (Auto) 4.0 K/uL (1.8-7.7) Lymphocytes # (Auto) 1.8 K/uL (1.0-4.8) Monocytes # (Auto) 0.6 K/uL (0.1-1.0) Eosinophils # (Auto) 0.12 K/uL (0.00-0.70) Basophils # (Auto) 0.01 K/uL (0.00-0.20) Absolute Immature Granulocyte (auto 0.01 K/uL (0-1) Nucleated Red Blood Cells 0.0 % (0.0-0.19) Urine Color LIGHT-YELLOW (YELLOW) Urine Appearance CLOUDY (CLEAR) H Urine pH 6.5 (5.0-8.0) Urine Specific [place] 1.017 (1.001-1.031) Urine Protein 70 mg/dL (NEGATIVE) H Urine Glucose (UA) NEGATIVE mg/dL (NEGATIVE) Urine Ketones NEGATIVE mg/dL (NEGATIVE) Urine Occult Blood LARGE (NEGATIVE) H Urine Nitrate NEGATIVE (NEGATIVE) Urine Bilirubin NEGATIVE mg/dL (NEGATIVE) Urine Urobilinogen 0.2 mg/dL (0.2-1.0) Urine Leukocyte Esterase 500 Angela/uL (NEGATIVE) H Urine RBC TNTC /HPF (0-1) H Urine WBC 51-100 /HPF (0-1) H Urine Squamous Epithelial Cells RARE /HPF (0-2) Urine Calcium Oxalate Crystals RARE /LPF (None Seen) Urine Bacteria RARE /HPF (None Seen) Sodium Level 141 mmol/L (136-145) Potassium Level 4.1 mmol/L (3.5-5.1) Chloride Level 108 mmol/L (101-111) Carbon Dioxide Level 33 mmol/L (21-32) H Blood Urea Nitrogen 13 mg/dL (7-18) Creatinine 0.8 mg/dL (0.5-1.0) Glomerular Filtration Rate Calc 88 mL/min (>90) Random Glucose 94 mg/dL (70-105) Total Calcium 9.1 mg/dL (8.5-10.1) Labs Reviewed?: Yes ED Course ED Course Orders Procedure Category Date Status Time Ketorolac 60mg/2ml PHA 08/23/24 Complete (Toradol 60mg/2ml) 22:30 Cbc With Differential LAB 08/23/24 Complete 22:12 Urinalysis Profile LAB 08/23/24 Complete 22:12 Basic Metabolic Panel LAB 08/23/24 Complete 22:12 Culture Urine ABRAHAM 08/23/24 In Process 22:52 Acetaminophen With PHA 08/23/24 Transmitted Codeine (Tylenol-Code 23:30 Ibuprofen 800 Mg Tab PHA 08/23/24 Transmitted (Motrin) 23:30 Amox/Clav 875/125mg PHA 08/23/24 Transmitted Tab (Augmentin 875-1 23:30 Current Medications Medications (Trade) Dose Ordered Sig/Juan Route PRN Reason Start Time Stop Time Status Last Admin Dose Admin Ketorolac Tromethamine (toRADol 60MG/ 2ML) 60 mg ONCE ONCE IM 08/23/24 22:30 08/23/24 22:31 DC 08/23/24 22:26 Vital Signs Date Time Temp Pulse Resp B/P (MAP) Pulse Ox O2 Delivery O2 Flow Rate FiO2 08/23/24 21:51 98.4 89 20 134/81 96 Room Air 2305, PATIENT HAS ACUTE CYSTITIS WITH HEMATURIA HOWEVER HOWEVER, WBCS NORMAL AND BUN AND CREATININE COMPLETELY NORMAL. NEPHROSTOMY IS DRAINING COMPLETELY CLEAR URINE. WE WILL BE DISCHARGED HOME TO FOLLOW UP WITH DR. Freeman Medical Decision Making MDM Medical discharge making based on basic labs and urinalysis. Nephrologists me drain bag is draining clear ange urine. Patient will be discharged after giving her additional pain meds and Augmentin to begin treatment for acute cystitis with hematuria Patient told to see urologist in the next 1-2 days, call for an appointment. DX & DISP Disposition: Discharge Departure Impression: Primary Impression: Acute cystitis with hematuria Additional Impression: H/O insertion of nephrostomy tube Condition: Stable Scripts Acetaminophen with Codeine (Acetaminophen-Cod #3 Tablet) 300 Mg-30 Mg Tablet 1 TAB PO Q6H PRN for Moderate to severe pain, #15 TAB 0 Refills Prov: MARCY GRIMES NP 08/23/24 Phenazopyridine HCl (Pyridium) 200 Mg Tab 200 MG PO TIDPC for 5 Days, #15 TAB TAKE WITH FOOD TO PREVENT STOMACH UPSET. Prov: MARCY GRIMES NP 08/23/24 Amoxicillin/Potassium Clav (Amox Tr-K Clv 875-125 mg Tab) 875 Mg-125 Mg Tablet 1 EACH PO BID for 7 Days, #14 TAB 0 Refills Prov: MARCY GRIMES NP 08/23/24 Additional Instructions: Follow-up with primary care provider in 1 to 2 days. Take medications as directed here in the emergency room. Okay to continue home medications unless otherwise discussed during your visit in the emergency room today. Return to your nearest emergency room if symptoms worsen or if there is no improvement. Call 911 if you need immediate assistance. Take Tylenol or Motrin [id number] as needed and if no contraindications are present. Increase oral hydration. A wound culture or urine culture was ordered here in the emergency room department please follow-up with primary care provider and advise them to get repeat ports from our facility. If you had any Gary wrap/splints that were applied here, please do not remove them until you see your primary care or specialty. Take antibiotics as directed until gone. , increase your water intake., see your urologist in the next 1-2 days, call for an appointment after [place]. Referrals: AIDE HINTON PA-C (PCP) VIKTORIYA FREEMAN MD Time of Disposition: 23:10 I have reviewed the case, and I agree with, Diagnosis and Plan MARCY GRIMES NP Aug 23, 2024 22:16
[2024-08-23 22:24] LABS: BASOPHILS # (AUTO) 0.01 K/uL (0.00-0.20); BASOPHILS % (AUTO) 0.2 % (0.0-5.0); EOSINOPHILS # (AUTO) 0.12 K/uL (0.00-0.70); EOSINOPHILS % (AUTO) 1.8 % (0.0-8.0); HEMATOCRIT 35.5 % (36-48); IMMATURE GRANULOCYTE ABSOLUTE 0.01 K/uL (0-1); LYMPHOCYTES # (AUTO) 1.8 K/uL (1.0-4.8); LYMPHOCYTES % (AUTO) 27.9 % (21.0-51.0); MEAN CORPUSCULAR HEMOGLOBIN 30.8 pg (27.0-33.0); MEAN CORPUSCULAR HGB CONC 34.1 g/dL (32.0-36.0); MEAN CORPUSCULAR VOLUME 90.3 fL (79-99); MONOCYTES # (AUTO) 0.6 K/uL (0.1-1.0); MONOCYTES % (AUTO) 9.1 % (3.0-13.0); NEUTROPHILS % (AUTO) 60.8 % (40.0-77.0); PLATELET COUNT (AUTO) 277 K/uL (130-400); RED BLOOD CELL COUNT(AUTO) 3.93 MIL/uL (4.00-5.50); RED CELL DISTRIBUTION WIDTH 11.6 % (11.0-15.5); WHITE BLOOD COUNT (AUTO) 6.6 K/uL (4.8-10.8)
[2024-08-23] MEDS: ketOROlac 60 MG VIAL (30MG/ML) IM ONE (22:26)
[2024-08-23 22:39] LABS: CREATININE 0.8 mg/dL (0.5-1.0); POTASSIUM 4.1 mmol/L (3.5-5.1)
[2024-08-23 22:49] LABS: APPEARANCE,URINE CLOUDY (CLEAR); BILIRUBIN,URINE NEGATIVE (NEGATIVE); COLOR,URINE LIGHT-YELLOW (YELLOW); GLUCOSE, URINE (UA) NEGATIVE (NEGATIVE); KETONES,URINE NEGATIVE (NEGATIVE); LEUKOCYTE ESTERASE ,URINE 500 Leu/uL (NEGATIVE); NITRATE,URINE NEGATIVE (NEGATIVE); OCCULT BLOOD,URINE LARGE (NEGATIVE); PH,URINE 6.5 (5.0-8.0); PROTEIN,URINE 70 mg/dL (NEGATIVE); UROBILINOGEN,URINE 0.2 mg/dL (0.2-1.0)
[2024-08-23 22:52] LABS: ADD UA MICROSCOPIC YES
[2024-08-23 22:54] LABS: BACTERIA,URINE RARE /HPF (None Seen); CALCIUM OXALATE CRYSTALS,UR RARE /LPF (None Seen); MUCUS,URINE FEW LPF (None Seen); RBC,URINE TNTC /HPF (0-1); SQUAMOUS EPITHELIAL CELL,UR RARE /HPF (0-2); WBC,URINE 51-100 /HPF (0-1)
[2024-08-23 23:09] VITALS: BP 122/74; PULSE 67; RESP 18; TEMP 98.4; O2SAT 100
[2024-08-23] MEDS ORDERED: ACET-2079 PO (23:13)
[2024-08-23] MEDS ORDERED: PHEN-847 PO (23:13)
[2024-08-23] MEDS: AMOX/CLAV 875/125MG TAB PO ONE (23:34)
[2024-08-23] MEDS: acetaMINOPHEN WITH coDEINE 1 TAB TAB PO ONE (23:35)
[2024-08-23] MEDS: ibuPROFEN 800 MG TAB PO ONE (23:35)
--- NOTE | 2024-08-23 23:50 | NUR ---
CHANGED OUT HER NEPHROSTOMY BAG, ONLY BAG, WITH A NEW BAG.
== END 2024-08-23 23:50 | disposition home or self-care (01) ==
LOC: EDH 21:47
DX: N30.01 Acute cystitis with hematuria (principal); J45.909 Unspecified asthma, uncomplicated; Z87.442 Personal history of urinary calculi; Z93.6 Other artificial openings of urinary tract status
CPT/HCPCS: 99284; 80048; 85025; 87086 ×2; 87186; 81001; 36415; 96372; J1885

== ENCOUNTER 2025-02-03 20:39 | Inpatient (IN) | payer SELFPAY ==
[~2025-02-03] VITALS: Ht 157.5 cm; Wt 68.4 kg
[~2025-02-03 20:39] MED LIST changes: -ACET-2079 PO; -AMOX1TAB16 PO; -CIPR-278 PO; +FAMO-136 PO; -HYDR-4064 PO; +HYOS-16 SL; -PHEN-776 PO; +PHEN-948 PO; +TAMS-55 PO
[2025-02-03 21:21] LABS: APPEARANCE,URINE CLOUDY (CLEAR); BILIRUBIN,URINE 2 mg/dL (NEGATIVE); COLOR,URINE DARK-ORANGE (YELLOW); GLUCOSE, URINE (UA) NEGATIVE (NEGATIVE); KETONES,URINE NEGATIVE (NEGATIVE); LEUKOCYTE ESTERASE ,URINE 500 Leu/uL (NEGATIVE); NITRATE,URINE 2+ (NEGATIVE); OCCULT BLOOD,URINE LARGE (NEGATIVE); PH,URINE 6.5 (5.0-8.0); PROTEIN,URINE 70 mg/dL (NEGATIVE)
[2025-02-03 21:22] LABS: ADD UA MICROSCOPIC YES
[2025-02-03 21:26] LABS: BACTERIA,URINE FEW /HPF (None Seen); MUCUS,URINE FEW LPF (None Seen); OTHER CASTS, URINE 12 /LPF (None Seen); RBC,URINE 51-100 /HPF (0-1); SQUAMOUS EPITHELIAL CELL,UR RARE /HPF (0-2); UNCLASSIFIED CRYSTAL 6 /HPF (None Seen); WBC,URINE 26-50 /HPF (0-1); YEAST,URINE BUDDING MOD /HPF (None Seen)
[2025-02-03 21:31] LABS: BASOPHILS # (AUTO) 0.02 K/uL (0.00-0.20); BASOPHILS % (AUTO) 0.3 % (0.0-5.0); EOSINOPHILS # (AUTO) 0.21 K/uL (0.00-0.70); EOSINOPHILS % (AUTO) 3.4 % (0.0-8.0); HEMATOCRIT 33.9 % (36-48); IMMATURE GRANULOCYTE ABSOLUTE 0.01 K/uL (0-1); LYMPHOCYTES # (AUTO) 1.8 K/uL (1.0-4.8); LYMPHOCYTES % (AUTO) 29.6 % (21.0-51.0); MEAN CORPUSCULAR HEMOGLOBIN 30.2 pg (27.0-33.0); MEAN CORPUSCULAR VOLUME 91.4 fL (79-99); MONOCYTES # (AUTO) 0.5 K/uL (0.1-1.0); MONOCYTES % (AUTO) 7.6 % (3.0-13.0); NEUTROPHILS # (AUTO) 3.6 K/uL (1.8-7.7); NEUTROPHILS % (AUTO) 58.9 % (40.0-77.0); PLATELET COUNT (AUTO) 296 K/uL (130-400); RED BLOOD CELL COUNT(AUTO) 3.71 MIL/uL (4.00-5.50); RED CELL DISTRIBUTION WIDTH 12.6 % (11.0-15.5); WHITE BLOOD COUNT (AUTO) 6.2 K/uL (4.8-10.8)
[2025-02-03 21:41] LABS: CREATININE 1.1 mg/dL (0.5-1.0); POTASSIUM 3.6 mmol/L (3.5-5.1)
[2025-02-03 21:45] LABS: ALBUMIN 3.8 g/dL (3.5-5.0); BILIRUBIN,DIRECT 0.1 mg/dL (0.0-0.3); BILIRUBIN,TOTAL 0.7 mg/dL (0.2-1.0); TOTAL PROTEIN, SERUM 7.7 g/dL (6.0-8.3)
[2025-02-04] VITALS (8 sets, daily range): BP systolic 102–130; BP diastolic 57–79; PULSE 65–85; RESP 16–20; TEMP 97.5–98; O2SAT 95–96
--- NOTE | 2025-02-04 00:21 | HMCIMG ---
CT ABDOMEN/PELVIS W/O CONTRAST HISTORY: Pyelonephritis COMPARISON: 01/14/2025 TECHNIQUE: Multiple sequential axial images of the abdomen and pelvis were obtained from the dome of the diaphragm through symphysis pubis. Patient was not given contrast through intravenous route. Oral contrast was not given. FINDINGS: No pleural effusion is seen bilaterally. There is no evidence of parenchymal disease or pulmonary nodule of the visualized lower lungs. Degenerative changes of the thoracolumbar spine are present. The heart is not enlarged. The liver, spleen, adrenal glands and pancreas are unremarkable. There is no evidence of hydronephrosis bilaterally. There is right ureteral stent. If there is clinical suspicion for pyelonephritis, urinalysis correlation with helpful. No evidence of renal stone is seen. Fecal material is seen in the colon. There are normal size retroperitoneal and mesenteric lymph nodes. No ascites is seen. Atherosclerotic changes are present. Pelvic sidewalls are symmetric bilaterally. Bladder is well distended without wall thickening. IMPRESSION: 1. Fecal material is seen in the colon. Right ureteral stent. If there is clinical suspicion for pyelonephritis, urinalysis correlation will be helpful. CT was performed with one or more following dose reduction techniques: automated exposure control, adjustment of the mA and kv according to patient's size, or use of a iterative reconstruction technique.
--- NOTE | 2025-02-04 00:41 | ERN ---
General Chief Complaint: Painful Urination Stated Complaint: NAUSEA,ABDOMINAL/BACK PAIN Time Seen by MD: 21:13 Time Seen by Midlevel: 21:13 Source: patient History of Present Illness Initial Comments The patient is a 54-year-old female presenting to the emergency department with right flank pain and dysuria. The patient had a right sided kidney stent placed a proximally two weeks ago. The initial plan was to remove the stent in 10 days but the patient was unable to follow up due to insurance issues. Today she presents with worsening right flank pain and dysuria. Allergies: Coded Allergies: iodine (Unverified Allergy, Severe, ANAPHYLAXIS, 01/16/25) Pork/Porcine Containing Products (Unverified Allergy, Unknown, 12/05/24) Home Meds Active Scripts Hyoscyamine Sulfate (Hyoscyamine Sulfate) 0.125 Mg Tab.subl, 0.125 MG SL TID, #15 TAB.SL Prov:MAYR JERRY MD 01/22/25 Famotidine (Pepcid) 20 Mg Tablet, 1 TAB PO BID for 30 Days, #60 TAB 0 Refills Prov:MARY JERRY MD 01/22/25 Tamsulosin HCl (Flomax) 0.4 Mg Cap.er.24h, 0.4 MG PO BID, #[address] Prov:MARY JERRY MD 01/22/25 Phenazopyridine HCl (Phenazopyridine HCl) 200 Mg Tablet, 200 MG PO Q8H PRN for bladder pain MDD 600, #30 TAB Prov:MARY JERRY MD 01/22/25 Past Medical History Past Medical History: Kidney Stone Medical History Other: HX OF KIDNEY STONES Past Surgical History: Other Surgical History Other: RIGHT NEPHROSTOMY TUBE Social History Social History: Negative, Lives with family Female( History) History: Not Applicable ROS Dictation CONSTITUTIONAL: Negative except for HPI HEAD/FACE: Negative except for HPI EENT: Negative except for HPI RESPIRATORY: Negative except for HPI GASTROINTESTINAL/ABDOMINAL: Negative except for HPI GENITOURINARY: Negative except for HPI MUSCULOSKELETAL: Negative except for HPI INTEGUMENTARY: Negative except for HPI NEUROLOGICAL/PSYCH: Negative except for HPI HEMATOLOGIC/LYMPHATIC: Negative except for HPI All Systems Negative, Except as noted above. 13 point review of systems assessed and all negative except for above. Physical Exam Physical Exam Dictation Vital Signs reviewed General Appearance: Alert, oriented x 3, no acute distress, well developed, nourished. Head and Face: non-traumatic. Eyes: PERRL, pink conjunctivas, eyelid no trauma, anterior chamber with arcus se nilis. Ears: Pinnas intact and no signs of trauma or erythema ear canals clear and no discharge TM no erythema Nose: No discharge, no bleeding. Oropharynx: Mouth normal, tongue pink, pharynx clear,no erythema, tonsils no exudates, no abscesses noted, mucous membrane moist Neck: Supple, non-tender, no thyromegaly, no masses, no JVD, no bruits Breast:Deferred Chest:No tenderness, no crepitus, no paradoxical movement, no retractions Lungs:Clear, well-ventilated, symmetric, no rales, no wheezing, no rhonchi, no stridor, good breath sounds bilaterally Heart: Regular rate, regular rhythm, no murmur, no gallops Vascular: no peripheral edema, Abdomen: Soft, positive bowel sounds, nondistended, no guarding, Right CVA tenderness no rebound, no masses no hepatomegaly, no splenomegaly, no Coello's sign, no hernias. Rectal: Deferred Genital: Deferred Neurological: Normal speech, motor function intact, sensory function intact Musculoskeletal: Neck nontender, full range of motion, back nontender, full range of motion, Extremities: nontender, full range of motion Skin: Color pink, dry, no turgor, no rash, no lacerations, no abrasions, no contusions. Lymphatic: Deferred Results Laboratory and Microbiology Lab and Micro Result Laboratory Tests Test 02/03/25 21:11 02/03/25 21:22 Urine Color DARK-ORANGE (YELLOW) Urine Appearance CLOUDY (CLEAR) H Urine pH 6.5 (5.0-8.0) Urine Specific [place] 1.019 (1.001-1.031) Urine Protein 70 mg/dL (NEGATIVE) H Urine Glucose (UA) NEGATIVE mg/dL (NEGATIVE) Urine Ketones NEGATIVE mg/dL (NEGATIVE) Urine Occult Blood LARGE (NEGATIVE) H Urine Nitrate 2+ (NEGATIVE) H Urine Bilirubin 2 mg/dL (NEGATIVE) H Urine Urobilinogen 4.0 mg/dL (0.2-1.0) H Urine Leukocyte Esterase 500 Angela/uL (NEGATIVE) H Urine RBC 51-100 /HPF (0-1) H Urine WBC 26-50 /HPF (0-1) H Urine Squamous Epithelial Cells RARE /HPF (0-2) Urine Other Crystals (Auto) 6 /HPF (None Seen) Urine Bacteria FEW /HPF (None Seen) Urine Hyaline Casts 2-5 /LPF (0-1 /LPF) H Urine Other Casts 12 /LPF (None Seen) Urine Yeast MOD /HPF (None Seen) White Blood Count 6.2 K/uL (4.8-10.8) Red Blood Count 3.71 MIL/uL (4.00-5.50) L Hemoglobin 11.2 g/dL (12.0-16.0) L Hematocrit 33.9 % (36-48) L Mean Corpuscular Volume 91.4 fL (79-99) Mean Corpuscular Hemoglobin 30.2 pg (27.0-33.0) Mean Corpuscular Hemoglobin Concent 33.0 g/dL (32.0-36.0) Red Cell Distribution Width 12.6 % (11.0-15.5) Platelet Count 296 K/uL (130-400) Mean Platelet Volume 8.8 fL (7.5-10.5) Immature Granulocyte % (Auto) 0.2 % (0-1) Neutrophils (%) (Auto) 58.9 % (40.0-77.0) Lymphocytes (%) (Auto) 29.6 % (21.0-51.0) Monocytes (%) (Auto) 7.6 % (3.0-13.0) Eosinophils (%) (Auto) 3.4 % (0.0-8.0) Basophils (%) (Auto) 0.3 % (0.0-5.0) Neutrophils # (Auto) 3.6 K/uL (1.8-7.7) Lymphocytes # (Auto) 1.8 K/uL (1.0-4.8) Monocytes # (Auto) 0.5 K/uL (0.1-1.0) Eosinophils # (Auto) 0.21 K/uL (0.00-0.70) Basophils # (Auto) 0.02 K/uL (0.00-0.20) Absolute Immature Granulocyte (auto 0.01 K/uL (0-1) Nucleated Red Blood Cells 0.0 % (0.0-0.19) Sodium Level 140 mmol/L (136-145) Potassium Level 3.6 mmol/L (3.5-5.1) Chloride Level 105 mmol/L (101-111) Carbon Dioxide Level 26 mmol/L (21-32) Blood Urea Nitrogen 20 mg/dL (7-18) H Creatinine 1.1 mg/dL (0.5-1.0) H Glomerular Filtration Rate Calc 60 mL/min (>90) Random Glucose 125 mg/dL (70-105) H Total Calcium 9.2 mg/dL (8.5-10.1) Total Bilirubin 0.7 mg/dL (0.2-1.0) Direct Bilirubin 0.1 mg/dL (0.0-0.3) Aspartate Amino Transf (AST/SGOT) 17 U/L (10-37) Alanine Aminotransferase (ALT/SGPT) 30 U/L (12-78) Alkaline Phosphatase 122 U/L (50-136) Total Protein 7.7 g/dL (6.0-8.3) Albumin 3.8 g/dL (3.5-5.0) Lipase 40 U/L (16-77) Labs Reviewed?: Yes MDM MDM: Differential diagnosis: Complicated urinary tract infection, pyelonephritis Rationale: Tests considered and ordered secondary to shared decision making include: Previous outside records reviewed: Old ER visits. Risk of complication and/or morbidity or mortality of patient management: None Medications-Per medication reconciliation Need for hospitalization: Patient does meet criteria for hospitalization. Need for emergency major/minor surgery: No There are no social concerns with this patient. Prescription drug management Prescriptions will include symptomatic care Patient's prior external medical records from other ER visits were reviewed by me as indicated. Prior testing and results from previous visits were reviewed. Prior tests were taken into account with medical decision making and resource utilization, independent historian/historians were used to obtain complete medical history. I independently interpreted the test that were performed, results were reviewed by me and considered findings on radiology if ordered. Medical management and examination interpretation discussions were had by me with other qualified healthcare professionals as indicated for the patient's care. ED Course Orders Procedure Category Date Status Time Urinalysis Profile LAB 02/03/25 Complete 21:01 Cbc With Differential LAB 02/03/25 Complete 21:14 Basic Metabolic Panel LAB 02/03/25 Complete 21:14 Hepatic Function Panel LAB 02/03/25 Complete 21:14 Lipase LAB 02/03/25 Complete 21:14 Culture Urine ABRAHAM 02/03/25 In Process 21:23 Ct Abdomen/Pelvis W/O CT 02/03/25 Resulted Contrast 22:52 0.9%Nacl 1000ml (Ns PHA 02/03/25 Complete 1000ml) 23:00 Ketorolac PHA 02/03/25 Complete Tromethamine 15mg/Ml 23:00 Morphine 2mg Syg PHA 02/03/25 Complete (Morphine 2mg Syg) 23:00 Current Medications Medications (Trade) Dose Ordered Sig/Juan Route PRN Reason Start Time Stop Time Status Last Admin Dose Admin Ketorolac Tromethamine (toRADol) 15 mg ONCE ONCE IV 02/03/25 23:00 02/03/25 23:01 DC 02/04/25 00:46 Morphine Sulfate (morPHINE 2MG SYG) 2 mg ONCE ONCE IVP 02/03/25 23:00 02/03/25 23:01 DC 02/04/25 00:46 Sodium Chloride 1,000 ml @ 0 mls/hr ONCE ONCE IV 02/03/25 23:00 02/03/25 23:01 DC 02/04/25 00:46 Vital Signs Date Time Temp Pulse Resp B/P (MAP) Pulse Ox O2 Delivery O2 Flow Rate FiO2 02/03/25 20:53 98.4 95 18 129/97 96 Room Air 0 DX & DISP Disposition: Inpatient Departure Impression: Primary Impression: Complicated urinary tract infection Condition: Stable Referrals: AIDE HINTON PA-C (PCP) Time of Disposition: 00:59 I have reviewed the case, and I agree with, Diagnosis and Plan I performed the substantive portion of the visit. I have reviewed and personally made and approve the management plan that is documented in the note by myself or the DEREK. I acknowledge for responsibility for the patient's management plan. EDDIE DE LEON Feb 04, 2025 00:41
[2025-02-04] MEDS: morPHINE 2 MG SYG IVP ONE (00:46)
[2025-02-04] MEDS: ketOROlac 15MG/ML VIAL (15MG/ML) IV ONE ×2 (00:46→15:17)
[2025-02-04] MEDS: 0.9%NACL 1000ML 1,000 ML IV ONE (00:46)
--- NOTE | 2025-02-04 04:24 | HP ---
[facility] PH[facility] Date of Service: Feb 04, 2025 Time of Service: 04:24 PCP: HISTORY OF PRESENT ILLNESS: This is a 54-year-old female with past medical history of kidney stone who presents to the ED for complaints of right flank pain and painful urination. Patient reports she had a right side renal stent placed two weeks ago and was told that the plan is to remove the stent in 10 days but patient was unable to follow up due to insurance issues.Patient states she had similar problem before and she was recently admitted in this facility and was discharged home on 01/21/2025 and patient underwent a cystourethroscopy by .and patient suddenly developed severe right flank pain associated with nausea but no vomiting so she decided to come to the ED Seen and examined patient in the ER awake alert and coherent. Denies fever, chills, chest pain, palpitation, shortness of breaths. Latest vital signs temperature 97.5, heart rate 70, blood pressure 124/75 saturation 96% on room air. Labs: Hemoglobin 11, hematocrit 33, platelet count 296. BUN 20, creatinine 1.1, GFR 60 glucose 125. Urinalysis consistent with urinary tract infection. CT abdomen and pelvis without contrast result revealed fecal material is seen in the colon. Right ureteral stent. If there is clinical suspicion for pyelonephritis, urinalysis correlation will be helpful. While in the ER patient received 1 L NS bolus, morphine 2 mg, and Toradol 15 mg IV we will admit patient for further medical management. REVIEW OF SYSTEMS CONSTITUTIONAL: Denies fevers, chills, or night sweats. No unintentional weight loss reported. NEUROLOGICAL: Denies headache, amaurosis fugax, motor weakness, sensory deficit, vertigo/spinning sensation, gait abnormalities, or tremors. ENT: No hearing loss, otalgia, otorrhea, rhinitis, rhinorrhea, hoarseness, or sore throat. CARDIOVASCULAR: Denies any exertional angina, dyspnea on exertion, orthopnea, paroxysmal nocturnal dyspnea, palpitations, life-threatening arrhythmias, claudication. PULMONARY: Denies any shortness of breath, cough, phlegm/sputum, hemoptysis, pleuritic chest pain. SLEEP: Denies morning headaches, daytime somnolence or napping. Denies difficulty falling asleep, staying asleep, waking from sleep. Denies knowledge of snoring. GASTROINTESTINAL: Denies any type of dysphagia to either liquids or solids. Denies nausea, vomiting, pyrosis, early satiety, abdominal pain, diarrhea, constipation, or changes in stool consistency or caliber. Denies coffee-ground emesis, hematemesis, hematochezia, or melanotic stools. GENITOURINARY: Complaints of painful urination Denies frequency, urgency, nocturia, hematuria or incontinence (Storage/Irritative symptoms.) Low urinary stream, straining to void, urinary intermittency or hesitancy, splitting of the voiding stream, terminal dribbling. ENDOCRINOLOGIC: Denies polyuria, polydipsia, polyphagia or heat/cold intolerances. HEMATOLOGIC: Denies thrombophilia/previous clots, or coagulopathy/bleeding disorders. ONCOLOGIC: Denies personal history of malignancy. DERMATOLOGIC: Denies rashes or pruritus. PSYCHIATRIC: Denies any suicidal or homicidal ideation. Denies hallucinations. PAST MEDICAL HISTORY: [ Kidney stone and asthma ] PAST SURGICAL HISTORY: [ Renal stent and nephrostomy tube ] PAST SOCIAL HISTORY: [ Patient lives with nephew. Patient denies alcohol tobacco and recreational drug use] FAMILY HISTORY: [ Hypertension, cardiovascular disease, cancer and diabetes] Coded Allergies: iodine (Unverified Allergy, Severe, ANAPHYLAXIS, 01/16/25) Pork/Porcine Containing Products (Unverified Allergy, Unknown, 12/05/24) PHYSICAL EXAM GENERAL APPEARANCE: The patient is awake, alert, and oriented, in no acute cardiopulmonary distress. NEUROLOGICAL: Cranial nerves II-XII grossly intact. Motor is 5/5 in bilateral upper and lower extremities proximal to distal. No sensory deficits. HEENT: Face is symmetric. Pupils are equal and reactive. Extraocular movements are intact. NECK: Supple. No JVD. No thyromegaly. No submental, submandibular, pre-/po stauricular, occipital or supraclavicular lymphadenopathy. CHEST: Normal chest expansion. No Telemetry. LUNGS: Absence of any rales, rhonchi or any wheezing. CARDIOVASCULAR: Regular. S1 and S2 normal. No appreciable rubs, murmurs or gallops. ABDOMEN: Complaints of nausea Soft, and nondistended. There is no rebound, voluntary guarding, or rigidity. : Deferred. No [place]. EXTREMITIES: Non-edematous and not cyanotic. No clubbing. Good capillary refill. SKIN: No skin breakdown. Vital Sign (Last 24 Hours) 02/04/25 01:30 Temp 98.6 Pulse 75 Resp 20 B/P (MAP) 145/97 Pulse Ox 97 O2 Delivery Room Air* O2 Flow Rate 0 FiO2 21 LABS: Laboratory: Test 02/03/25 21:22 02/03/25 21:11 Range/Units White Blood Count 6.2 4.8-10.8 K/uL Red Blood Count 3.71 L 4.00-5.50 MIL/uL Hemoglobin 11.2 L 12.0-16.0 g/dL Hematocrit 33.9 L 36-48 % Mean Corpuscular Volume 91.4 79-99 fL Mean Corpuscular Hemoglobin 30.2 27.0-33.0 pg Mean Corpuscular Hemoglobin Concent 33.0 32.0-36.0 g/dL Red Cell Distribution Width 12.6 11.0-15.5 % Platelet Count 296 130-400 K/uL Mean Platelet Volume 8.8 7.5-10.5 fL Immature Granulocyte % (Auto) 0.2 0-1 % Neutrophils (%) (Auto) 58.9 40.0-77.0 % Lymphocytes (%) (Auto) 29.6 21.0-51.0 % Monocytes (%) (Auto) 7.6 3.0-13.0 % Eosinophils (%) (Auto) 3.4 0.0-8.0 % Basophils (%) (Auto) 0.3 0.0-5.0 % Neutrophils # (Auto) 3.6 1.8-7.7 K/uL Lymphocytes # (Auto) 1.8 1.0-4.8 K/uL Monocytes # (Auto) 0.5 0.1-1.0 K/uL Eosinophils # (Auto) 0.21 0.00-0.70 K/uL Basophils # (Auto) 0.02 0.00-0.20 K/uL Absolute Immature Granulocyte (auto 0.01 0-1 K/uL Nucleated Red Blood Cells 0.0 0.0-0.19 % Sodium Level 140 136-145 mmol/L Potassium Level 3.6 3.5-5.1 mmol/L Chloride Level 105 101-111 mmol/L Carbon Dioxide Level 26 21-32 mmol/L Blood Urea Nitrogen 20 H 7-18 mg/dL Creatinine 1.1 H 0.5-1.0 mg/dL Glomerular Filtration Rate Calc 60 >90 mL/min Random Glucose 125 H 70-105 mg/dL Total Calcium 9.2 8.5-10.1 mg/dL Total Bilirubin 0.7 0.2-1.0 mg/dL Direct Bilirubin 0.1 0.0-0.3 mg/dL Aspartate Amino Transf (AST/SGOT) 17 10-37 U/L Alanine Aminotransferase (ALT/SGPT) 30 12-78 U/L Alkaline Phosphatase 122 50-136 U/L Total Protein 7.7 6.0-8.3 g/dL Albumin 3.8 3.5-5.0 g/dL Lipase 40 16-77 U/L Urine Color DARK-ORANGE YELLOW Urine Appearance CLOUDY H CLEAR Urine pH 6.5 5.0-8.0 Urine Specific [place] 1.019 1.001-1.031 Urine Protein 70 H NEGATIVE mg/dL Urine Glucose (UA) NEGATIVE NEGATIVE mg/dL Urine Ketones NEGATIVE NEGATIVE mg/dL Urine Occult Blood LARGE H NEGATIVE Urine Nitrate 2+ H NEGATIVE Urine Bilirubin 2 H NEGATIVE mg/dL Urine Urobilinogen 4.0 H 0.2-1.0 mg/dL Urine Leukocyte Esterase 500 H NEGATIVE Angela/uL Urine RBC 51-100 H 0-1 /HPF Urine WBC 26-50 H 0-1 /HPF Urine Squamous Epithelial Cells RARE 0-2 /HPF Urine Other Crystals (Auto) 6 None Seen /HPF Urine Bacteria FEW None Seen /HPF Urine Hyaline Casts 2-5 H 0-1 /LPF /LPF Urine Other Casts 12 None Seen /LPF Urine Yeast MOD None Seen /HPF DIAGNOSTICS / RADIOLOGY: [ ] ASSESSMENT: Acute complicated urinary tract infection POA Recent Status post right renal stent POA Acute normocytic normochromic anemia POA Acute kidney injury POA History of kidney stone POA PLAN: We will admit patient in medical surgical We will start on regular diet We will start NS @ 100 ml / hr and re evaluate We will start patient on Rocephin 1 g IV b.i.d. for empiric coverage We will start on famotidine 20 mg p.o. daily for GI prophylaxis We will replace electrolytes as needed per protocol We will add prn medication for fever,pain,cough , nausea, vomiting and constipation We will reconcile home meds once medlist available We will request labs in am We will seek Urology consultation Further orders to follow depending on above results Case discussed with attending physician and came up with above treatment and plan of care. ADVANCED CARE PLANNING 1. Which of the following were discussed? Hospice Care - No Therapeutic options - Yes Advance Directives - No Other discussions - 2. Discussed with who? Patient 3. Voluntary nature of this service was explained to the patient? Yes 4. Amount of time spent - _22 5. Reviewed by Physician? (if this service was performed by NPP) Yes Patient seen and examined by me. Agree with note by EMPLOYEE BENEFITS MANAGER SEE ADDITIONAL ORDERS PER CHART DISCUSSED WITH NURSING STAFF TANO SEAY [facility] Feb 04, 2025 04:24
[2025-02-04] MEDS ORDERED: acetaMINOPHEN 325 MG TAB PO PRN ×2 (04:30)
[2025-02-04] MEDS: 0.9%NACL 1000ML 1,000 ML IV SCH (04:42)
[2025-02-04] MEDS: ketOROlac 15MG/ML VIAL (15MG/ML) IV PRN (05:49)
[2025-02-04 06:49] LABS: BASOPHILS # (AUTO) 0.02 K/uL (0.00-0.20); BASOPHILS % (AUTO) 0.5 % (0.0-5.0); EOSINOPHILS # (AUTO) 0.24 K/uL (0.00-0.70); EOSINOPHILS % (AUTO) 5.6 % (0.0-8.0); HEMATOCRIT 29.7 % (36-48); IMMATURE GRANULOCYTE ABSOLUTE 0.02 K/uL (0-1); LYMPHOCYTES # (AUTO) 1.6 K/uL (1.0-4.8); LYMPHOCYTES % (AUTO) 37.8 % (21.0-51.0); MEAN CORPUSCULAR VOLUME 90.8 fL (79-99); MONOCYTES # (AUTO) 0.4 K/uL (0.1-1.0); NEUTROPHILS % (AUTO) 45.6 % (40.0-77.0); PLATELET COUNT (AUTO) 259 K/uL (130-400); RED BLOOD CELL COUNT(AUTO) 3.27 MIL/uL (4.00-5.50); RED CELL DISTRIBUTION WIDTH 12.5 % (11.0-15.5); WHITE BLOOD COUNT (AUTO) 4.3 K/uL (4.8-10.8)
[2025-02-04 07:09] LABS: ALBUMIN 3.1 g/dL (3.5-5.0); BILIRUBIN,TOTAL 0.8 mg/dL (0.2-1.0); CREATININE 0.8 mg/dL (0.5-1.0); POTASSIUM 3.4 mmol/L (3.5-5.1); TOTAL PROTEIN, SERUM 6.3 g/dL (6.0-8.3)
[2025-02-04] MEDS: FAMOTIDINE 20MG TAB PO SCH (10:01)
[2025-02-04] MEDS: cefTRIAXone 1G VIAL IVPB SCH (10:01)
[2025-02-04] MEDS ORDERED: PoTASSium chloRIDE 20MEQ/100ML 100 ML IV PRN (12:00)
[2025-02-04] MEDS ORDERED: PoTASSium chloRIDE 20MEQ ER 20 MEQ ERTAB PO PRN (12:00)
[2025-02-04] MEDS ORDERED: PHENAZOpyridine HCL 200 MG TAB 200 MG TABLET PO PRN (12:00)
[2025-02-04] MEDS ORDERED: MAGNESIUM 2GM PREMIX 50ML 50 ML IV PRN (12:00)
[2025-02-04] MEDS ORDERED: PoTASSium chl 10% ELIXIR 20MEQ 20 MEQ/15 ML UDCUP PO PRN (12:00)
[2025-02-04] MEDS: PoTASSium chloRIDE 20MEQ ER 20 MEQ ERTAB PO ONE (12:43)
--- NOTE | 2025-02-04 14:04 | NUR ---
DCP: HOME Pt currently lives with nephashanti. Pt does not report any insecurities with food, half-way, and/or utilities. Pt does not have any DME, home health, or provider services. Pt is able to complete ADLs independently. PCP is Gee Paige and uses [facility] for any RX needs. At [place] pt will return home and family will assist with transportation. Addendum: 02/04/25 at 1406 by IVETT SARMIENTO SS Amended: Links added.
[2025-02-04] MEDS: morPHINE 2 MG SYG IVP PRN (20:38)
--- NOTE | 2025-02-04 21:19 | CONS ---
CONSULTATION NOTE Date of Service: Feb 04, 2025 Reason for Consultation: Presence of a right ureteral stent, stent pain Requesting Physician: Yaniv Dixon MD HISTORY OF PRESENT ILLNESS: 54-year-old female with past medical history of kidney stone who presents to the ED for complaints of right flank pain and painful urination. Patient reports she had a right side renal stent placed two weeks ago and was told that the plan is to remove the stent in 10 days but patient was unable to follow up due to insurance issues. Patient states she had similar problem before and she was recently admitted in this facility and was discharged home on 01/21/2025 and patient underwent a cystourethroscopy by .and patient suddenly developed severe right flank pain associated with nausea but no vomiting so she decided to come to the ED. Latest vital signs temperature 97.5, heart rate 70, blood pressure 124/75 saturation 96% on room air. Labs: Hemoglobin 11, hematocrit 33, platelet count 296. BUN 20, creatinine 1.1, GFR 60 glucose 125. Urinalysis consistent with urinary tract infection. CT abdomen and pelvis without contrast result revealed fecal material is seen in the colon. Right ureteral stent. While in the ER patient received 1 L NS bolus, morphine 2 mg, and Toradol 15 mg IV we will admit patient for further medical management. Were seen as a consult in this facility January 13, 2025 for an obstructing 6 mm right mid ureteral calculus. Three days later she was taken to the operating suite with stone extraction and treatment we left the stent in place. Patient was supposed to be seen in the office yesterday 02/03/2025 for stent removal but could not make it because of financial issues. Patient presents to the hospital today because of stent symptoms. REVIEW OF SYSTEMS CONSTITUTIONAL: Denies fever, chills, or fatigue. HEAD/FACE: No signs of trauma. EENT: Denies eye pain, blurred vision, double vision, or light sensitivity. RESPIRATORY: Denies shortness of breath, cough, wheezing CARDIOVASCULAR: Denies chest pain, palpitation, syncope GASTROINTESTINAL/ABDOMINAL: Denies abdominal pain, constipation, diarrhea, nausea or vomiting GENITOURINARY: Denies dysuria or hematuria. MUSCULOSKELETAL: Denies joint pain, tenderness, or trauma. INTEGUMENTARY: Denies rash or itchiness NEUROLOGICAL/PSYCH: Denies anxiety, depression, heat or cold intolerance. PAST MEDICAL HISTORY: Nephrolithiasis, asthma PAST SURGICAL HISTORY: History of nephrostomy tube placement Right ureteroscopy with laser lithotripsy with stent placement PAST SOCIAL HISTORY: Currently unemployed, denies ethanol, smoking and recreational drugs FAMILY HISTORY: Noncontributory to presenting complaint Coded Allergies: iodine (Unverified Allergy, Severe, ANAPHYLAXIS, 01/16/25) Pork/Porcine Containing Products (Unverified Allergy, Unknown, 12/05/24) PHYSICAL EXAM EYES: Anicteric. Pupils equal and reactive. HENT: No oral thrush seen, moist Oral mucosa NECK: Supple, no JVD or thyromegaly. LUNGS: Good air entry. No rales, no rhonchi. CARDIOVASCULAR: S1, S2 regular. No murmur heard. ABDOMEN: Soft, non tender, bowel sounds present, no organomegaly CENTRAL NERVOUS SYSTEM: Awake, alert, oriented x 3. No focal deficits. SKIN: No rashes, no swelling. LYMPHATICS: No peripheral lymphadenopathy MUSCULOSKELETAL: No joint swelling, erythema or tenderness. EXTREMITIES: No cyanosis or clubbing BACK: No deformity, no pressure ulcer. GENITOURINARY: Genitalia is normal, no CVA tenderness Vital Sign (Last 24 Hours) 02/04/25 02/04/25 10:09 20:00 Temp 97.7 Pulse 85 Resp 16 B/P (MAP) 117/73 Pulse Ox 96 O2 Delivery Room Air O2 Flow Rate 0 FiO2 21 Intake & Output (last 24hrs) 02/03/25 02/03/25 02/04/25 15:00 23:00 07:00 Intake Total 0 ml Balance 0 ml LABS: Laboratory: Test 02/04/25 06:29 02/03/25 21:22 02/03/25 21:11 Range/Units White Blood Count 4.3 #L 4.8-10.8 K/uL Red Blood Count 3.27 L 4.00-5.50 MIL/uL Hemoglobin 9.8 L 12.0-16.0 g/dL Hematocrit 29.7 L 36-48 % Mean Corpuscular Volume 90.8 79-99 fL Mean Corpuscular Hemoglobin 30.0 27.0-33.0 pg Mean Corpuscular Hemoglobin Concent 33.0 32.0-36.0 g/dL Red Cell Distribution Width 12.5 11.0-15.5 % Platelet Count 259 130-400 K/uL Mean Platelet Volume 8.9 7.5-10.5 fL Immature Granulocyte % (Auto) 0.5 0-1 % Neutrophils (%) (Auto) 45.6 40.0-77.0 % Lymphocytes (%) (Auto) 37.8 21.0-51.0 % Monocytes (%) (Auto) 10.0 3.0-13.0 % Eosinophils (%) (Auto) 5.6 0.0-8.0 % Basophils (%) (Auto) 0.5 0.0-5.0 % Neutrophils # (Auto) 2.0 1.8-7.7 K/uL Lymphocytes # (Auto) 1.6 1.0-4.8 K/uL Monocytes # (Auto) 0.4 0.1-1.0 K/uL Eosinophils # (Auto) 0.24 0.00-0.70 K/uL Basophils # (Auto) 0.02 0.00-0.20 K/uL Absolute Immature Granulocyte (auto 0.02 0-1 K/uL Nucleated Red Blood Cells 0.0 0.0-0.19 % Sodium Level 143 136-145 mmol/L Potassium Level 3.4 L 3.5-5.1 mmol/L Chloride Level 108 101-111 mmol/L Carbon Dioxide Level 28 21-32 mmol/L Blood Urea Nitrogen 15 7-18 mg/dL Creatinine 0.8 0.5-1.0 mg/dL Glomerular Filtration Rate Calc 88 >90 mL/min Random Glucose 92 70-105 mg/dL Total Calcium 8.7 8.5-10.1 mg/dL Total Bilirubin 0.8 0.2-1.0 mg/dL Aspartate Amino Transf (AST/SGOT) 16 10-37 U/L Alanine Aminotransferase (ALT/SGPT) 23 # 12-78 U/L Alkaline Phosphatase 99 50-136 U/L Total Protein 6.3 6.0-8.3 g/dL Albumin 3.1 L 3.5-5.0 g/dL Procalcitonin < 0.05 L 0.05-0.5 ng/mL Direct Bilirubin 0.1 0.0-0.3 mg/dL Lipase 40 16-77 U/L Urine Color DARK-ORANGE YELLOW Urine Appearance CLOUDY H CLEAR Urine pH 6.5 5.0-8.0 Urine Specific [place] 1.019 1.001-1.031 Urine Protein 70 H NEGATIVE mg/dL Urine Glucose (UA) NEGATIVE NEGATIVE mg/dL Urine Ketones NEGATIVE NEGATIVE mg/dL Urine Occult Blood LARGE H NEGATIVE Urine Nitrate 2+ H NEGATIVE Urine Bilirubin 2 H NEGATIVE mg/dL Urine Urobilinogen 4.0 H 0.2-1.0 mg/dL Urine Leukocyte Esterase 500 H NEGATIVE Angela/uL Urine RBC 51-100 H 0-1 /HPF Urine WBC 26-50 H 0-1 /HPF Urine Squamous Epithelial Cells RARE 0-2 /HPF Urine Other Crystals (Auto) 6 None Seen /HPF Urine Bacteria FEW None Seen /HPF Urine Hyaline Casts 2-5 H 0-1 /LPF /LPF Urine Other Casts 12 None Seen /LPF Urine Yeast MOD None Seen /HPF DIAGNOSTICS / RADIOLOGY: CT stone protocol obtain today 02/04/2025, indwelling right ureteral stent in location. ASSESSMENT: 54-year-old female with history of nephrolithiasis, presented to this facility if about a week or two ago had a 6 mm stone causing obstruction in the right mid ureter and was treated with ureteroscopy and a stent was left in place, presents with symptoms of stent pain PLAN: 1. Patient is clearly exhibiting typical stent symptoms. She was supposed to be seen in the office yesterday 02/03/2025 for stent removal but could not make it because of financial restrictions. 2. She needs stent removal. We will make the necessary arrangements to do that why she is here in the facility. 3. Thank you for involving us in the care of this patient 60 minutes spent to complete a consult, more than half of the time spent in counseling and coordination of care and addressing all questions posed by patient, some time was spent discussing with members of her care team, the rest of the time was spent reviewing medical records past and present but especially imaging and laboratory data from this current admission. JOHNY DIEHL MD Feb 04, 2025 21:19
[2025-02-04] MEDS ORDERED: PHARMACY COMMUNICATION MISC SCH (22:00)
[2025-02-04] MEDS: ketOROlac 30MG VIAL (30MG/ML) IVP PRN (23:41)
[2025-02-05] VITALS (7 sets, daily range): BP systolic 100–119; BP diastolic 56–79; PULSE 57–76; RESP 16–20; TEMP 97.8–98; O2SAT 97–98
[2025-02-05 05:28] LABS: BASOPHILS # (AUTO) 0.01 K/uL (0.00-0.20); BASOPHILS % (AUTO) 0.3 % (0.0-5.0); EOSINOPHILS # (AUTO) 0.21 K/uL (0.00-0.70); EOSINOPHILS % (AUTO) 5.4 % (0.0-8.0); HEMATOCRIT 31.8 % (36-48); IMMATURE GRANULOCYTE ABSOLUTE 0.01 K/uL (0-1); LYMPHOCYTES # (AUTO) 1.4 K/uL (1.0-4.8); LYMPHOCYTES % (AUTO) 36.9 % (21.0-51.0); MEAN CORPUSCULAR HEMOGLOBIN 29.8 pg (27.0-33.0); MEAN CORPUSCULAR HGB CONC 32.7 g/dL (32.0-36.0); MEAN CORPUSCULAR VOLUME 91.1 fL (79-99); MONOCYTES # (AUTO) 0.4 K/uL (0.1-1.0); MONOCYTES % (AUTO) 10.1 % (3.0-13.0); NEUTROPHILS # (AUTO) 1.8 K/uL (1.8-7.7); PLATELET COUNT (AUTO) 266 K/uL (130-400); RED BLOOD CELL COUNT(AUTO) 3.49 MIL/uL (4.00-5.50); RED CELL DISTRIBUTION WIDTH 12.7 % (11.0-15.5); WHITE BLOOD COUNT (AUTO) 3.9 K/uL (4.8-10.8)
[2025-02-05 05:49] LABS: BILIRUBIN,TOTAL 0.6 mg/dL (0.2-1.0); CREATININE 0.7 mg/dL (0.5-1.0); MAGNESIUM 2.1 mg/dL (1.80-2.40); POTASSIUM 4.1 mmol/L (3.5-5.1); TOTAL PROTEIN, SERUM 6.5 g/dL (6.0-8.3)
--- NOTE | 2025-02-05 08:27 | PN ---
[facility] PROGRESS NOTE Date of Service: Feb 05, 2025 Time of Service: 08:21 SUBJECTIVE: [ ] This is a 54-year-old female with past medical history of kidney stone who presents to the ED for complaints of right flank pain and painful urination. Patient reports she had a right side renal stent placed two weeks ago and was told that the plan is to remove the stent in 10 days but patient was unable to follow up due to insurance issues.Patient states she had similar problem before and she was recently admitted in this facility and was discharged home on 01/21/2025 and patient underwent a cystourethroscopy by .and patient suddenly developed severe right flank pain associated with nausea but no vomiting so she decided to come to the ED 02/05/25 patient is seen and examined waiting for Urology to arrange renal stent removal. Primary nurse reports no events overnight. Continues on prophylaxis antibiotics. Patient is asleep awakened per verbal stimuli. Denied chest pain or shortness for breath Encouraged patient to ambulate in out of bed to chair with meals. REVIEW OF SYSTEMS CONSTITUTIONAL: Denies fevers, chills, or night sweats. No unintentional weight loss reported. NEUROLOGICAL: Denies headache, amaurosis fugax, motor weakness, sensory deficit, vertigo/spinning sensation, gait abnormalities, or tremors. ENT: No hearing loss, otalgia, otorrhea, rhinitis, rhinorrhea, hoarseness, or sore throat. CARDIOVASCULAR: Denies any exertional angina, dyspnea on exertion, orthopnea, paroxysmal nocturnal dyspnea, palpitations, life-threatening arrhythmias, claudication. PULMONARY: Denies any shortness of breath, cough, phlegm/sputum, hemoptysis, pleuritic chest pain. SLEEP: Denies morning headaches, daytime somnolence or napping. Denies difficulty falling asleep, staying asleep, waking from sleep. Denies knowledge of snoring. GASTROINTESTINAL: Denies any type of dysphagia to either liquids or solids. Denies nausea, vomiting, pyrosis, early satiety, abdominal pain, diarrhea, constipation, or changes in stool consistency or caliber. Denies coffee-ground emesis, hematemesis, hematochezia, or melanotic stools. GENITOURINARY: Complaints of painful urination Denies frequency, urgency, nocturia, hematuria or incontinence (Storage/Irritative symptoms.) Low urinary stream, straining to void, urinary intermittency or hesitancy, splitting of the voiding stream, terminal dribbling. ENDOCRINOLOGIC: Denies polyuria, polydipsia, polyphagia or heat/cold intolerances. HEMATOLOGIC: Denies thrombophilia/previous clots, or coagulopathy/bleeding disorders. ONCOLOGIC: Denies personal history of malignancy. DERMATOLOGIC: Denies rashes or pruritus. PSYCHIATRIC: Denies any suicidal or homicidal ideation. Denies hallucinations. PHYSICAL EXAM GENERAL APPEARANCE: The patient is awake, alert, and oriented, in no acute cardiopulmonary distress. NEUROLOGICAL: Cranial nerves II-XII grossly intact. Motor is 5/5 in bilateral upper and lower extremities proximal to distal. No sensory deficits. HEENT: Face is symmetric. Pupils are equal and reactive. Extraocular movements are intact. NECK: Supple. No JVD. No thyromegaly. No submental, submandibular, pre- /postauricular, occipital or supraclavicular lymphadenopathy. CHEST: Normal chest expansion. No Telemetry. LUNGS: Absence of any rales, rhonchi or any wheezing. CARDIOVASCULAR: Regular. S1 and S2 normal. No appreciable rubs, murmurs or gallops. ABDOMEN: Complaints of nausea Soft, and nondistended. There is no rebound, voluntary guarding, or rigidity. : Deferred. No Newberry. EXTREMITIES: Non-edematous and not cyanotic. No clubbing. Good capillary refill. SKIN: No skin breakdown. Vital Signs (last 8hr) Date Time Temp Pulse Resp B/P (MAP) Pulse Ox O2 Delivery O2 Flow Rate FiO2 02/05/25 07:52 97.9 58 17 100/62 97 Room Air 02/05/25 03:36 97.9 57 20 105/56 98 Room Air LABS: Laboratory: Test 02/05/25 05:05 02/04/25 06:29 02/03/25 21:22 02/03/25 21:11 Range/Units White Blood Count 3.9 L 4.8-10.8 K/uL Red Blood Count 3.49 L 4.00-5.50 MIL/uL Hemoglobin 10.4 L 12.0-16.0 g/dL Hematocrit 31.8 L 36-48 % Mean Corpuscular Volume 91.1 79-99 fL Mean Corpuscular Hemoglobin 29.8 27.0-33.0 pg Mean Corpuscular Hemoglobin Concent 32.7 32.0-36.0 g/dL Red Cell Distribution Width 12.7 11.0-15.5 % Platelet Count 266 130-400 K/uL Mean Platelet Volume 9.1 7.5-10.5 fL Immature Granulocyte % (Auto) 0.3 0-1 % Neutrophils (%) (Auto) 47.0 40.0-77.0 % Lymphocytes (%) (Auto) 36.9 21.0-51.0 % Monocytes (%) (Auto) 10.1 3.0-13.0 % Eosinophils (%) (Auto) 5.4 0.0-8.0 % Basophils (%) (Auto) 0.3 0.0-5.0 % Neutrophils # (Auto) 1.8 1.8-7.7 K/uL Lymphocytes # (Auto) 1.4 1.0-4.8 K/uL Monocytes # (Auto) 0.4 0.1-1.0 K/uL Eosinophils # (Auto) 0.21 0.00-0.70 K/uL Basophils # (Auto) 0.01 0.00-0.20 K/uL Absolute Immature Granulocyte (auto 0.01 0-1 K/uL Nucleated Red Blood Cells 0.0 0.0-0.19 % Sodium Level 141 136-145 mmol/L Potassium Level 4.1 3.5-5.1 mmol/L Chloride Level 108 101-111 mmol/L Carbon Dioxide Level 26 21-32 mmol/L Blood Urea Nitrogen 13 7-18 mg/dL Creatinine 0.7 0.5-1.0 mg/dL Glomerular Filtration Rate Calc 103 >90 mL/min Random Glucose 90 70-105 mg/dL Total Calcium 8.5 8.5-10.1 mg/dL Magnesium Level 2.10 1.80-2.40 mg/dL Total Bilirubin 0.6 # 0.2-1.0 mg/dL Aspartate Amino Transf (AST/SGOT) 14 10-37 U/L Alanine Aminotransferase (ALT/SGPT) 26 12-78 U/L Alkaline Phosphatase 98 50-136 U/L Total Protein 6.5 6.0-8.3 g/dL Albumin 3.0 L 3.5-5.0 g/dL Procalcitonin < 0.05 L 0.05-0.5 ng/mL Direct Bilirubin 0.1 0.0-0.3 mg/dL Lipase 40 16-77 U/L Urine Color DARK-ORANGE YELLOW Urine Appearance CLOUDY H CLEAR Urine pH 6.5 5.0-8.0 Urine Specific [place] 1.019 1.001-1.031 Urine Protein 70 H NEGATIVE mg/dL Urine Glucose (UA) NEGATIVE NEGATIVE mg/dL Urine Ketones NEGATIVE NEGATIVE mg/dL Urine Occult Blood LARGE H NEGATIVE Urine Nitrate 2+ H NEGATIVE Urine Bilirubin 2 H NEGATIVE mg/dL Urine Urobilinogen 4.0 H 0.2-1.0 mg/dL Urine Leukocyte Esterase 500 H NEGATIVE Angela/uL Urine RBC 51-100 H 0-1 /HPF Urine WBC 26-50 H 0-1 /HPF Urine Squamous Epithelial Cells RARE 0-2 /HPF Urine Other Crystals (Auto) 6 None Seen /HPF Urine Bacteria FEW None Seen /HPF Urine Hyaline Casts 2-5 H 0-1 /LPF /LPF Urine Other Casts 12 None Seen /LPF Urine Yeast MOD None Seen /HPF Current Medications Medications (Trade) Dose Ordered Sig/Juan Route PRN Reason Start Time Stop Time Status Last Admin Dose Admin Acetaminophen (TYLenol 325MG TAB) 650 mg Q4H PRN PO MILD PAIN (1-3) 02/04/25 04:30 03/06/25 04:29 Acetaminophen (TYLenol 325MG TAB) 650 mg Q6H PRN PO TEMPERATURE GREATER THAN 101.5 02/04/25 04:30 03/06/25 04:29 Ceftriaxone Sodium (ROCEphine 1G INJ) 1 gm BID IVPB 02/04/25 09:00 02/14/25 08:59 02/04/25 20:38 1 GM Famotidine (Pepcid 20mg Tab) 20 mg Q24H PO 02/04/25 09:00 03/06/25 08:59 02/04/25 10:01 20 MG Ketorolac Tromethamine (toRADol) 15 mg Q6H PRN IV MODERATE PAIN (4-6) 02/04/25 04:30 02/04/25 14:15 DC 02/04/25 12:43 15 MG Ketorolac Tromethamine (toRADol) 30 mg Q6H PRN IVP SEVERE PAIN (7-10) 02/04/25 14:30 02/09/25 14:29 02/04/25 23:41 30 MG Magnesium Sulfate 50 ml @ 0 mls/hr PROTOCOL PRN IV low mag level 02/04/25 12:00 03/06/25 11:59 Morphine Sulfate (morPHINE 2MG SYG) 2 mg Q4H PRN IVP SEVERE PAIN (7-10) 02/04/25 18:30 02/11/25 18:29 02/05/25 01:52 2 MG Ondansetron HCl (zoFRAN 4MG INJ) 4 mg Q6H PRN IV NAUSEA/VOMITING 02/04/25 04:30 03/06/25 04:29 Pharmacy Profile Note (Pharmacy Communication) 1 each AD MISC 02/04/25 22:00 02/04/25 21:37 DC Phenazopyridine HCl (PYRIdium HCL 200 MG TAB) 200 mg Q8H PRN PO bladder spasm 02/04/25 12:00 03/06/25 11:59 Potassium Chloride 100 ml @ 100 mls/hr AD PRN IV POTASSIUM PROTOCOL 02/04/25 12:00 03/06/25 11:59 Potassium Chloride (K-Dur/Klor-Con 20meq) 20 meq AD PRN PO POTASSIUM PROTOCOL 02/04/25 12:00 03/06/25 11:59 Potassium Chloride (KCl 10% Elixir 20meq/15ml) 20 meq AD PRN PO POTASSIUM PROTOCOL 02/04/25 12:00 03/06/25 11:59 Sodium Chloride 1,000 ml @ 100 mls/hr Q10H IV 02/04/25 04:30 03/06/25 04:29 02/05/25 01:09 100 MLS/HR Tamsulosin HCl (FloMAX) 0.4 mg DAILY PO 02/05/25 09:00 03/07/25 08:59 DIAGNOSTICS / RADIOLOGY: [ ] ASSESSMENT: Acute complicated urinary tract infection POA Recent Status post right renal stent POA Acute normocytic normochromic anemia POA Acute kidney injury POA resolved History of kidney stone POA moderate protein calorie malnutrition POA electrolytes derangement: hypokalemia P{OA PLAN: admit; medical surgical diet; regular diet IVF's : NS @ 100 ml / hr abt's : Rocephin 1 g IV b.i.d. for empiric coverage sap ppm consultant: urologist: removal of stent s/p right ureteral stent pending to be arranged We will start on famotidine 20 mg p.o. daily for GI prophylaxis We will replace electrolytes as needed per protocol We will add prn medication for fever,pain,cough , nausea, vomiting and constipation labs in am Further orders to follow depending on above results Case discussed with attending physician and came up with above treatment and plan of care. ATTESTATION BY PHYSICIAN I have seen and examined the patient. I reviewed the documentation, medical decision making, and treatment plan as noted by the mid-level provider above. I agree with the findings and plan of care. DARIEN NIELSEN MD, [facility] NP Feb 05, 2025 08:27
[2025-02-05] MEDS: tamSULOsin HCL 0.4 MG CAP.ER.24H PO SCH (10:00)
[2025-02-06] VITALS (21 sets, daily range): BP systolic 104–149; BP diastolic 66–86; PULSE 54–78; RESP 15–20; TEMP 97.4–98.5; O2SAT 95–98
[2025-02-06 05:01] LABS: BASOPHILS # (AUTO) 0.01 K/uL (0.00-0.20); BASOPHILS % (AUTO) 0.2 % (0.0-5.0); EOSINOPHILS # (AUTO) 0.23 K/uL (0.00-0.70); EOSINOPHILS % (AUTO) 5.4 % (0.0-8.0); HEMATOCRIT 31.5 % (36-48); IMMATURE GRANULOCYTE ABSOLUTE 0.02 K/uL (0-1); LYMPHOCYTES # (AUTO) 1.6 K/uL (1.0-4.8); LYMPHOCYTES % (AUTO) 38.1 % (21.0-51.0); MEAN CORPUSCULAR HEMOGLOBIN 30.6 pg (27.0-33.0); MONOCYTES # (AUTO) 0.4 K/uL (0.1-1.0); MONOCYTES % (AUTO) 8.7 % (3.0-13.0); NEUTROPHILS % (AUTO) 47.1 % (40.0-77.0); PLATELET COUNT (AUTO) 263 K/uL (130-400); RED CELL DISTRIBUTION WIDTH 12.5 % (11.0-15.5); WHITE BLOOD COUNT (AUTO) 4.3 K/uL (4.8-10.8)
[2025-02-06 05:37] LABS: ALBUMIN 3.1 g/dL (3.5-5.0); BILIRUBIN,TOTAL 0.4 mg/dL (0.2-1.0); CREATININE 0.7 mg/dL (0.5-1.0); TOTAL PROTEIN, SERUM 6.5 g/dL (6.0-8.3)
--- NOTE | 2025-02-06 08:57 | PN ---
[facility] PROGRESS NOTE Date of Service: Feb 06, 2025 Time of Service: 08:56 SUBJECTIVE: [ ] This is a 54-year-old female with past medical history of kidney stone who presents to the ED for complaints of right flank pain and painful urination. Patient reports she had a right side renal stent placed two weeks ago and was told that the plan is to remove the stent in 10 days but patient was unable to follow up due to insurance issues.Patient states she had similar problem before and she was recently admitted in this facility and was discharged home on 01/21/2025 and patient underwent a cystourethroscopy by .and patient suddenly developed severe right flank pain associated with nausea but no vomiting so she decided to come to the ED 02/05/25 patient is seen and examined waiting for Urology to arrange renal stent removal. Primary nurse reports no events overnight. Continues on prophylaxis antibiotics. Patient is asleep awakened per verbal stimuli. Denied chest pain or shortness for breath Encouraged patient to ambulate in out of bed to chair with meals. 11/06/24 patient is seen and examined. scheduled cystoscopy right retrograde py elogram right ureteral stent removal. We continue with medical management with IV antibiotics REVIEW OF SYSTEMS CONSTITUTIONAL: Denies fevers, chills, or night sweats. No unintentional weight loss reported. NEUROLOGICAL: Denies headache, amaurosis fugax, motor weakness, sensory deficit, vertigo/spinning sensation, gait abnormalities, or tremors. ENT: No hearing loss, otalgia, otorrhea, rhinitis, rhinorrhea, hoarseness, or sore throat. CARDIOVASCULAR: Denies any exertional angina, dyspnea on exertion, orthopnea, p aroxysmal nocturnal dyspnea, palpitations, life-threatening arrhythmias, claudication. PULMONARY: Denies any shortness of breath, cough, phlegm/sputum, hemoptysis, pleuritic chest pain. SLEEP: Denies morning headaches, daytime somnolence or napping. Denies difficulty falling asleep, staying asleep, waking from sleep. Denies knowledge of snoring. GASTROINTESTINAL: Denies any type of dysphagia to either liquids or solids. Denies nausea, vomiting, pyrosis, early satiety, abdominal pain, diarrhea, constipation, or changes in stool consistency or caliber. Denies coffee-ground emesis, hematemesis, hematochezia, or melanotic stools. GENITOURINARY: Complaints of painful urination Denies frequency, urgency, nocturia, hematuria or incontinence (Storage/Irritative symptoms.) Low urinary stream, straining to void, urinary intermittency or hesitancy, splitting of the voiding stream, terminal dribbling. ENDOCRINOLOGIC: Denies polyuria, polydipsia, polyphagia or heat/cold intolerances. HEMATOLOGIC: Denies thrombophilia/previous clots, or coagulopathy/bleeding disorders. ONCOLOGIC: Denies personal history of malignancy. DERMATOLOGIC: Denies rashes or pruritus. PSYCHIATRIC: Denies any suicidal or homicidal ideation. Denies hallucinations. PHYSICAL EXAM GENERAL APPEARANCE: The patient is awake, alert, and oriented, in no acute cardiopulmonary distress. NEUROLOGICAL: Cranial nerves II-XII grossly intact. Motor is 5/5 in bilateral upper and lower extremities proximal to distal. No sensory deficits. HEENT: Face is symmetric. Pupils are equal and reactive. Extraocular movements are intact. NECK: Supple. No JVD. No thyromegaly. No submental, submandibular, pre- /postauricular, occipital or supraclavicular lymphadenopathy. CHEST: Normal chest expansion. No Telemetry. LUNGS: Absence of any rales, rhonchi or any wheezing. CARDIOVASCULAR: Regular. S1 and S2 normal. No appreciable rubs, murmurs or gallops. ABDOMEN: Complaints of nausea Soft, and nondistended. There is no rebound, voluntary guarding, or rigidity. : Deferred. No Newberry. EXTREMITIES: Non-edematous and not cyanotic. No clubbing. Good capillary refill. SKIN: No skin breakdown. Vital Signs (last 8hr) Date Time Temp Pulse Resp B/P (MAP) Pulse Ox O2 Delivery O2 Flow Rate FiO2 02/06/25 08:18 97.9 56 18 104/73 98 Room Air 02/06/25 03:32 98.1 54 20 126/80 97 Room Air LABS: Laboratory: Test 02/06/25 04:56 02/05/25 05:05 Range/Units White Blood Count 4.3 L 4.8-10.8 K/uL Red Blood Count 3.50 L 4.00-5.50 MIL/uL Hemoglobin 10.7 L 12.0-16.0 g/dL Hematocrit 31.5 L 36-48 % Mean Corpuscular Volume 90.0 79-99 fL Mean Corpuscular Hemoglobin 30.6 27.0-33.0 pg Mean Corpuscular Hemoglobin Concent 34.0 32.0-36.0 g/dL Red Cell Distribution Width 12.5 11.0-15.5 % Platelet Count 263 130-400 K/uL Mean Platelet Volume 8.7 7.5-10.5 fL Immature Granulocyte % (Auto) 0.5 0-1 % Neutrophils (%) (Auto) 47.1 40.0-77.0 % Lymphocytes (%) (Auto) 38.1 21.0-51.0 % Monocytes (%) (Auto) 8.7 3.0-13.0 % Eosinophils (%) (Auto) 5.4 0.0-8.0 % Basophils (%) (Auto) 0.2 0.0-5.0 % Neutrophils # (Auto) 2.0 1.8-7.7 K/uL Lymphocytes # (Auto) 1.6 1.0-4.8 K/uL Monocytes # (Auto) 0.4 0.1-1.0 K/uL Eosinophils # (Auto) 0.23 0.00-0.70 K/uL Basophils # (Auto) 0.01 0.00-0.20 K/uL Absolute Immature Granulocyte (auto 0.02 0-1 K/uL Nucleated Red Blood Cells 0.0 0.0-0.19 % Sodium Level 140 136-145 mmol/L Potassium Level 4.0 3.5-5.1 mmol/L Chloride Level 106 101-111 mmol/L Carbon Dioxide Level 26 21-32 mmol/L Blood Urea Nitrogen 17 7-18 mg/dL Creatinine 0.7 0.5-1.0 mg/dL Glomerular Filtration Rate Calc 103 >90 mL/min Random Glucose 93 70-105 mg/dL Total Calcium 8.8 8.5-10.1 mg/dL Total Bilirubin 0.4 # 0.2-1.0 mg/dL Aspartate Amino Transf (AST/SGOT) 20 10-37 U/L Alanine Aminotransferase (ALT/SGPT) 26 12-78 U/L Alkaline Phosphatase 96 50-136 U/L Total Protein 6.5 6.0-8.3 g/dL Albumin 3.1 L 3.5-5.0 g/dL Magnesium Level 2.10 1.80-2.40 mg/dL Current Medications Medications (Trade) Dose Ordered Sig/Juan Route PRN Reason Start Time Stop Time Status Last Admin Dose Admin Acetaminophen (TYLenol 325MG TAB) 650 mg Q4H PRN PO MILD PAIN (1-3) 02/04/25 04:30 03/06/25 04:29 Acetaminophen (TYLenol 325MG TAB) 650 mg Q6H PRN PO TEMPERATURE GREATER THAN 101.5 02/04/25 04:30 03/06/25 04:29 Ceftriaxone Sodium (ROCEphine 1G INJ) 1 gm BID IVPB 02/04/25 09:00 02/14/25 08:59 02/05/25 19:58 1 GM Famotidine (Pepcid 20mg Tab) 20 mg Q24H PO 02/04/25 09:00 03/06/25 08:59 02/05/25 10:00 20 MG Ketorolac Tromethamine (toRADol) 15 mg Q6H PRN IV MODERATE PAIN (4-6) 02/04/25 04:30 02/04/25 14:15 DC 02/04/25 12:43 15 MG Ketorolac Tromethamine (toRADol) 30 mg Q6H PRN IVP MODERATE PAIN (4-6) 02/04/25 14:30 02/09/25 14:29 02/05/25 21:07 30 MG Magnesium Sulfate 50 ml @ 0 mls/hr PROTOCOL PRN IV low mag level 02/04/25 12:00 03/06/25 11:59 Morphine Sulfate (morPHINE 2MG SYG) 2 mg Q4H PRN IVP SEVERE PAIN (7-10) 02/04/25 18:30 02/11/25 18:29 02/06/25 02:20 2 MG Ondansetron HCl (zoFRAN 4MG INJ) 4 mg Q6H PRN IV NAUSEA/VOMITING 02/04/25 04:30 03/06/25 04:29 Pharmacy Profile Note (Pharmacy Communication) 1 each AD MISC 02/04/25 22:00 02/04/25 21:37 DC Phenazopyridine HCl (PYRIdium HCL 200 MG TAB) 200 mg Q8H PRN PO bladder spasm 02/04/25 12:00 03/06/25 11:59 Potassium Chloride 100 ml @ 100 mls/hr AD PRN IV POTASSIUM PROTOCOL 02/04/25 12:00 03/06/25 11:59 Potassium Chloride (K-Dur/Klor-Con 20meq) 20 meq AD PRN PO POTASSIUM PROTOCOL 02/04/25 12:00 03/06/25 11:59 Potassium Chloride (KCl 10% Elixir 20meq/15ml) 20 meq AD PRN PO POTASSIUM PROTOCOL 02/04/25 12:00 03/06/25 11:59 Sodium Chloride 1,000 ml @ 100 mls/hr Q10H IV 02/04/25 04:30 02/05/25 11:47 DC 02/05/25 10:01 100 MLS/HR Tamsulosin HCl (FloMAX) 0.4 mg DAILY PO 02/05/25 09:00 03/07/25 08:59 02/05/25 10:00 0.4 MG DIAGNOSTICS / RADIOLOGY: [ ] ASSESSMENT: Acute complicated urinary tract infection POA Recent Status post right renal stent POA scheduled cystoscopy right retrograde pyelogram right ureteral stent removal Acute normocytic normochromic anemia POA Acute kidney injury POA resolved History of kidney stone POA moderate protein calorie malnutrition POA electrolytes derangement: hypokalemia P{OA PLAN: admit; medical surgical diet; regular diet IVF's : NS @ 100 ml / hr abt's : Rocephin 1 g IV b.i.d. for empiric coverage call center consultant: urologist: scheduled cystoscopy right retrograde pyelogram right ureteral stent removal today We will start on famotidine 20 mg p.o. daily for GI prophylaxis We will replace electrolytes as needed per protocol We will add prn medication for fever,pain,cough , nausea, vomiting and constipation labs in am Further orders to follow depending on above results Case discussed with attending physician and came up with above treatment and plan of care. ATTESTATION BY PHYSICIAN I have seen and examined the patient. I reviewed the documentation, medical decision making, and treatment plan as noted by the mid-level provider above. I agree with the findings and plan of care. Mary Tolbert MD, [facility] NP Feb 06, 2025 08:57
[2025-02-06] MEDS: ondanSETRON 4MG INJ IV PRN (20:06)
[2025-02-06] MEDS ORDERED: IOHEXOL-350 50ML VIAL IV ONE (22:02)
[2025-02-06] MEDS ORDERED: LIDOCAINE PF 100MG/5ML (2%) SYRINGE 5ML ONE (22:05)
[2025-02-06] MEDS ORDERED: proPOFol 10 MG/ML 20ML VIAL IV ONE (22:06)
[2025-02-06] MEDS ORDERED: FENTanyl CITRate PF 50 MCG/1 ML 2ML VIAL ONE (22:06)
[2025-02-06] MEDS ORDERED: MIDAZOLAM HCL 1 MG/ML 2ML VIAL ONE (22:06)
--- NOTE | 2025-02-06 22:43 | OP ---
Operative Note: DATE OF PROCEDURE: 02/06/25 SURGEON: JOHNY DIEHL MD JOURNALISTS AND OTHER WRITERS: Operating room staff ANESTHESIA: General anesthesia ANESTHESIOLOGIST/POLITICAL DIRECTOR: Anesthesia staff PREOPERATIVE DIAGNOSIS: 1. Indwelling right ureteral stent POSTOPERATIVE DIAGNOSIS: 1. Indwelling right ureteral stent SYNOPSIS: Successful stent removal PROCEDURE: 1. 30585 Cystourethroscopy with removal of right ureteral stent 2. 07856 Right retrograde pyelogram with interpretation ESTIMATED BLOOD LOSS: 0 cc INDICATIONS: This patient was seen as a consult in this facility January 13, 2025 for an obstructing 6 mm right mid ureteral calculus. Three days later she was taken to the operating suite with stone extraction and treatment we left the stent in place. Patient was supposed to be seen in the office 02/03/2025 for stent removal but could not make it because of financial issues. Patient presents to the hospital today because of stent symptoms. We made a decision to bring her to the operating suite for stent extraction and a retrograde pyelogram DESCRIPTION OF PROCEDURE: Patient identified in the holding area, consent verified. She received Ancef prophylaxis taken to the operating suite, placed in the supine position, after induction underwent general anesthesia. Next placed in low lithotomy, genitalia prepped draped time-out performed. Rigid 20 Albanian cystoscope introduced through meatus which was patent. Shaver cystourethroscopy performed, no abnormalities. Indwelling right ureteral stent recognized. It was grabbed and removed in its entirety. This was followed by using an open-ended ureteral catheter to obtain a retrograde pyelogram with no hydronephrosis adequate filling of the collecting system and prompt drainage from the right collecting system. Bladder emptied, no complications. JOHNY DIEHL MD Feb 06, 2025 22:43
[2025-02-07] VITALS (13 sets, daily range): BP systolic 104–141; BP diastolic 64–79; PULSE 50–74; RESP 18–19; TEMP 97.6–98
[2025-02-07 05:56] LABS: BASOPHILS # (AUTO) 0.01 K/uL (0.00-0.20); BASOPHILS % (AUTO) 0.2 % (0.0-5.0); EOSINOPHILS # (AUTO) 0.18 K/uL (0.00-0.70); EOSINOPHILS % (AUTO) 4.4 % (0.0-8.0); HEMATOCRIT 31.1 % (36-48); IMMATURE GRANULOCYTE ABSOLUTE 0.01 K/uL (0-1); LYMPHOCYTES # (AUTO) 1.5 K/uL (1.0-4.8); LYMPHOCYTES % (AUTO) 36.2 % (21.0-51.0); MEAN CORPUSCULAR HEMOGLOBIN 30.4 pg (27.0-33.0); MEAN CORPUSCULAR HGB CONC 32.8 g/dL (32.0-36.0); MEAN CORPUSCULAR VOLUME 92.6 fL (79-99); MONOCYTES # (AUTO) 0.4 K/uL (0.1-1.0); MONOCYTES % (AUTO) 8.8 % (3.0-13.0); NEUTROPHILS # (AUTO) 2.1 K/uL (1.8-7.7); NEUTROPHILS % (AUTO) 50.2 % (40.0-77.0); PLATELET COUNT (AUTO) 250 K/uL (130-400); RED BLOOD CELL COUNT(AUTO) 3.36 MIL/uL (4.00-5.50); RED CELL DISTRIBUTION WIDTH 12.4 % (11.0-15.5); WHITE BLOOD COUNT (AUTO) 4.1 K/uL (4.8-10.8)
[2025-02-07 06:19] LABS: BILIRUBIN,TOTAL 0.7 mg/dL (0.2-1.0); CREATININE 0.6 mg/dL (0.5-1.0); MAGNESIUM 2.1 mg/dL (1.80-2.40); POTASSIUM 3.7 mmol/L (3.5-5.1); TOTAL PROTEIN, SERUM 6.3 g/dL (6.0-8.3)
--- NOTE | 2025-02-07 09:03 | HMCIMG ---
Fluoroscopic guidance History: PYELOGRAM Fluoroscopic guidance provided. Procedure by ordering physician in operating room suite with fluoroscopic guidance. Several spot images were obtained. Impression: Fluoroscopic guidance.
[2025-02-07] MEDS ORDERED: CEFD300C3 PO (09:32)
--- NOTE | 2025-02-07 09:36 | DS ---
Discharge Summary Hospital Course Summary: This is a 54-year-old female with past medical history of kidney stone who presents to the ED for complaints of right flank pain and painful urination. Patient reports she had a right side renal stent placed two weeks ago and was told that the plan is to remove the stent in 10 days but patient was unable to follow up due to insurance issues.Patient states she had similar problem before and she was recently admitted in this facility and was discharged home on 01/21/2025 and patient underwent a cystourethroscopy by .and patient suddenly developed severe right flank pain associated with nausea but no vomiting so she decided to come to the ED 02/05/25 patient is seen and examined waiting for Urology to arrange renal stent removal. Primary nurse reports no events overnight. Continues on prophylaxis antibiotics. Patient is asleep awakened per verbal stimuli. Denied chest pain or shortness for breath Encouraged patient to ambulate in out of bed to chair with meals. 11/06/24 patient is seen and examined. scheduled cystoscopy right retrograde pyelogram right ureteral stent removal. We continue with medical management with IV antibiotics 11/07/24 status post procedure cystoscopy right retrograde pyelogram right ureteral stent removal IT WAS SUCCESSFUL. URINE CULTURES CAME BACK POSITIVE GRAM-NEGATIVE WE WILL BE DISCHARGED ON ORAL ANTIBIOTICS.. THE NURSE GAVE PATIENT A DOSE OF MORPHINE EARLIER THIS MORNING WE WILL REASSESS. 1300 PATIENT APPEARS TO BE DOING MUCH BETTER CONTINUES TO HAVE BLADDER SPASMS TO SUPRAPUBIC AREA: ONE DOSE OFPYRIDIUM 200 MG WILL BE GIVEN; ALL QUESTIONS ADDRESSED PATIENT WILL BE DISCHARGED ON ORAL ANTIBIOTICS PATIENT TO FOLLOW-UP WITH HER PCP SHE WAS CONCERNED THAT SHE WANTED SOMETHING STRONGER THAN TYLENOL NO 3. ADVISED PATIENT TO FOLLOW-UP PCP FOR SOMETHING STRONGER. PATIENT'S URINE OUTPUT IS ADEQUATELY NO HEMATURIA.. ENCOURAGED TO AMBULATE WE WILL BE DISCHARGED LATER ON TODAY. SHE IS CLINICALLY STABLE Procedure(s): Operative Note: DATE OF PROCEDURE: 02/06/25 SURGEON: JOHNY DIEHL MD ABSTRACT MANAGER: Operating room staff ANESTHESIA: General anesthesia ANESTHESIOLOGIST/DIVERSITY MANAGER: Anesthesia staff PREOPERATIVE DIAGNOSIS: 1. Indwelling right ureteral stent POSTOPERATIVE DIAGNOSIS: 1. Indwelling right ureteral stent SYNOPSIS: Successful stent removal PROCEDURE: 1. 21008 Cystourethroscopy with removal of right ureteral stent 2. 92052 Right retrograde pyelogram with interpretation ESTIMATED BLOOD LOSS: 0 cc INDICATIONS: This patient was seen as a consult in this facility January 13, 2025 for an obstructing 6 mm right mid ureteral calculus. Three days later she was taken to the operating suite with stone extraction and treatment we left the stent in place. Patient was supposed to be seen in the office 02/03/2025 for stent removal but could not make it because of financial issues. Patient presents to the hospital today because of stent symptoms. We made a decision to bring her to the operating suite for stent extraction and a retrograde pyelogram DESCRIPTION OF PROCEDURE: Patient identified in the holding area, consent verified. She received Ancef prophylaxis taken to the operating suite, placed in the supine position, after induction underwent general anesthesia. Next placed in low lithotomy, genitalia prepped draped time-out performed. Rigid 20 Khmer cystoscope introduced through meatus which was patent. Shaver cystourethroscopy performed, no abnormalities. Indwelling right ureteral stent recognized. It was grabbed and removed in its entirety. This was followed by using an open-ended ureteral catheter to obtain a retrograde pyelogram with no hydronephrosis adequate filling of the collecting system and prompt drainage from the right collecting system. Bladder emptied, no complications. JOHNY DIEHL MD Feb 06, 2025 22:43 Electronically Signed by: JOHNY DIEHL MD02/06/25 3236 Electronically Co-Signed by: Assessment/Plan: discharged dx's: Acute complicated urinary tract infection gram negative Pseudoomonas Aeruginosa POA Recent Status post right renal stent POA scheduled cystoscopy right retrograde pyelogram right ureteral stent removal Acute normocytic normochromic anemia POA Acute kidney injury POA resolved History of kidney stone POA moderate protein calorie malnutrition POA electrolytes derangement: hypokalemia P{OA PLAN: ADMISSION DATE: 02/03/25 DISCHARGE DATE: 02/07/25 DISPOSITION: home CONDITION: stable MANAGER COMBINATION(S): Urology FOLLOW UP APPOINTMENT(S): PCP 2-3 days PROCEDURES: 1. 74817 Cystourethroscopy with removal of right ureteral stent 2. 61915 Right retrograde pyelogram with interpretation IMAGING (S) report attached to summary : urogram abd pelvis CT MICROBIOLOGY: report attached to summary; ACTIVITY: ab winnie HOME MEDICATIONS remain the same CHANGES ON HOME MEDICATIONS none NEW MEDICATIONS cefdinir 300 mg po bid for 7 days. TEACHING: To continue with Flomax and to follow up with PCP. Patient was advised to complete full cycle of antibiotics. Emergency instructions: The patient was instructed to present to the nearest Emergency Department or call 911 should their symptoms return or worsen. Discharge Instructions: RUN DATE: 02/07/25 [facility] PAGE 1 RUN TIME: [address] [address], [place] [address] Department of Laboratories CLIA # [id number] Kettle Operator Head: Smooth Srinivasan DO Specimen Report PATIENT: FRANCESCO BARNARD ACCT: [id number] LOC: [facility] U: [id number] AGE/SX: 54/F ROOM: [facility] RE02/03/[address]: DARIEN NIELSEN MD : 1970 BED: 1 DIS: STATUS: ADM IN TLOC: SPEC: [id number] TRACI: 02/03/25 STATUS: COMP REQ: [id number] RECD: 02/03/[address]: JOSE G PAUL MD SOURCE: [facility] ENTR: 02/04/[address]: NARCISO SPDESC: CLEAN CAT AIDE HINTON PA-C ORDERED: AERO ID & SENS Procedure Result Toney Date-Time AEROBIC ID & SENSITIVITIES Final 02/07/25-075 [facility] COLONY DESCRIPTION: DAY 1: COLONY COUNT: >100,000 CFU/ML GRAM NEGATIVE RODS IDENTIFICATION AND SENSITIVITY TO FOLLOW PSEUDOMONAS AERUGINOSA P. Aerugin M.I.C. RX --------- ---- AZTREONAM <=4 S CEFTAZIDIME 4 S CEFTAZIDIME/AVIBACTAM <=8 S CIPROFLOXACIN 2 R LEVOFLOXACIN 2 I MEROPENEM <=1 S PIPERACILLIN/TAZOBACTAM <=8 S @ [facility] Test Performed at: [facility] [address], [place], [place] Medical Barrel Roller: Walter Rebollar D.O. END OF REPORT Home Medications: Active Scripts Hyoscyamine Sulfate (Hyoscyamine Sulfate) 0.125 Mg Tab.subl, 0.125 MG SL TID, #15 TAB.SL Prov:MARY JERRY MD 01/22/25 Famotidine (Pepcid) 20 Mg Tablet, 1 TAB PO BID for 30 Days, #60 TAB 0 Refills Prov:MARY JERRY MD 01/22/25 Tamsulosin HCl (Flomax) 0.4 Mg Cap.er.24h, 0.4 MG PO BID, #60 CAPSULE.DR Prov:MARY JERRY MD 01/22/25 Phenazopyridine HCl (Phenazopyridine HCl) 200 Mg Tablet, 200 MG PO Q8H PRN for bladder pain MDD 600, #30 TAB Prov:MARY JERRY MD 01/22/25 New Medications: Acetaminophen with Codeine (Acetaminophen-Cod #3 Tablet) 300 Mg-30 Mg Tablet 1 TAB PO Q6HPRN PRN for pain for 5 Days, #10 TAB 0 Refills Cefdinir (Cefdinir) 300 Mg Capsule 1 CAP PO BID for 7 Days, #14 CAP 0 Refills Phenazopyridine HCl (Pyridium) 200 Mg Tablet 1 TAB PO TID for urinary discomfort for 3 Days, #9 TAB 0 Refills Continued Medications: Famotidine (Pepcid) 20 Mg Tablet 1 TAB PO BID for 30 Days, #60 TAB 0 Refills Hyoscyamine Sulfate (Hyoscyamine Sulfate) 0.125 Mg Tab.subl 0.125 MG SL TID, #15 TAB.SL Phenazopyridine HCl (Phenazopyridine HCl) 200 Mg Tablet 200 MG PO Q8H PRN for bladder pain MDD 600, #30 TAB Tamsulosin HCl (Flomax) 0.4 Mg Cap.er.24h 0.4 MG PO BID, #60 CAPSULE. ATTESTATION BY PHYSICIAN I have seen and examined the patient. I reviewed the documentation, medical decision making, and treatment plan as noted by the mid-level provider above. I agree with the findings and plan of care. Mary Tolbert MD, ELIZABETH NP Feb 07, 2025 09:36
[2025-02-07] MEDS ORDERED: PHEN-776 PO (13:12)
[2025-02-07] MEDS ORDERED: ACET-2079 PO (13:13)
[2025-02-07] MEDS: PHENAZOpyridine HCL 200 MG TAB 200 MG TABLET PO ONE (14:06)
[2025-02-07] MEDS: acetaMINOPHEN WITH coDEINE 1 TAB TAB PO PRN (14:07)
--- NOTE | 2025-02-07 15:40 | NUR ---
Discharge Patient been discharge home, all discharge instructions given to patient, all questions answered, no concerns at this time, prescriptions sent electronically to pharmacy of choice, and written pain prescription given to patient, aware needs to follow up with MD as outpatient.
[2025-02-09] MEDS ORDERED: MIDAZOLAM HCL 1 MG/ML 2ML VIAL ONE (10:56)
[2025-02-09] MEDS ORDERED: proPOFol 10 MG/ML 20ML VIAL IV ONE (10:57)
[2025-02-09] MEDS ORDERED: rocuRONium bROMide 10MG/1ML 5ML VL ONE (10:57)
[2025-02-09] MEDS ORDERED: FENTanyl CITRate PF 50 MCG/1 ML 2ML VIAL ONE (10:57)
[2025-02-09] MEDS ORDERED: LIDOCAINE PF 100MG/5ML (2%) SYRINGE 5ML ONE (10:58)
== END 2025-02-07 17:10 | disposition home or self-care (01) | DRG 698 ==
LOC: EDH 20:39 → EDHIP 20:40 → 3BH 02-04 05:10
PROVIDERS: ADMIT Internal Medicine; ATTEND Internal Medicine
PROC: 0TP98DZ Removal of Intraluminal Device from Ureter, Via Natural or Artificial Opening Endoscopic (ICD-10-PCS; principal; 2025-02-06 22:08)
PROC: BT1D1ZZ Fluoroscopy of Right Kidney, Ureter and Bladder using Low Osmolar Contrast (ICD-10-PCS; 2025-02-06 22:08)
DX: T83.592A Infection and inflammatory reaction due to indwelling ureteral stent, initial encounter (principal); N17.0 Acute kidney failure with tubular necrosis; N39.0 Urinary tract infection, site not specified; E44.0 Moderate protein-calorie malnutrition; N17.9 Acute kidney failure, unspecified; D64.9 Anemia, unspecified; E87.6 Hypokalemia; J45.909 Unspecified asthma, uncomplicated; K59.00 Constipation, unspecified; Z82.49 Family history of ischemic heart disease and other diseases of the circulatory system; Z93.6 Other artificial openings of urinary tract status; Z83.3 Family history of diabetes mellitus; Y83.8 Other surgical procedures as the cause of abnormal reaction of the patient, or of later complication, without mention of misadventure at the time of the procedure; Y92.89 Other specified places as the place of occurrence of the external cause; Z68.27 Body mass index [BMI] 27.0-27.9, adult
CPT/HCPCS: 36415; 74176; 74420; 80048; 80053; 80076; 81001; 82948; 83690; 83735; 84145; 85025; 87040; 87086; 87186; 96374; 96375; 99285; C1758; G0378; J0696; J1885; J2003; J2250; J2270; J2405; J2704; J3010; J7030; J7120; Q9967; A4215; A4221; A4222; A4223; A4358; A4663; A4930; J3490

== ENCOUNTER 2025-05-04 19:11 | Emergency (ER) | payer OTHER ==
[~2025-05-04] VITALS: Ht 152.4 cm; Wt 70.3 kg
[~2025-05-04 19:11] MED LIST changes: +CEPH500B PO; -FAMO-136 PO; +HYDR-4060 PO; -HYOS-16 SL; -PHEN-948 PO; -TAMS-55 PO
--- NOTE | 2025-05-04 19:17 | NUR ---
UA CUP PROVIDED
--- NOTE | 2025-05-04 19:59 | EKG ---
[facility] Test Date: 2025-05-04 Test Time: 19:52:32 Pat Name: FRANCESCO BARNARD Department: ED Room: Gender: F Senior Gamemaster: [id number] : 1970 Requested By: JOSE G PAUL Order Number: [id number] Reading MD: Agusto Buenrostro Measurements Intervals [place] Rate: 105 P: 49 MS: 183 QRS: 41 QRSD: 85 T: -80 QT: 322 QTc: 426 Interpretive Statements Sinus tachycardia Nonspecific T abnormalities, diffuse leads Compared to ECG 01/19/2025 21:07:23 Sinus rhythm no longer present T-wave abnormality still present Electronically Signed On 05-04-2025 20:29:55 CDT by Agusto Buenrostro Please click the below link to view image of tracing.
--- NOTE | 2025-05-04 20:08 | ERN ---
General Chief Complaint: Flank Pain Stated Complaint: RT FLANK PAIN Time Seen by MD: 19:13 Source: patient History of Present Illness Initial Comments 54-year-old female with a history of asthma and kidney stones comes in with right flank pain for three days. It is associated with nausea vomiting as well as fever chills and a headache. Also associated right shoulder neck cramping. The pain in her right flank is near the costovertebral angle. She states no dysuria and normal bowel movements. No upper respiratory tract symptoms. Allergies: Coded Allergies: iodine (Unverified Allergy, Severe, ANAPHYLAXIS, 01/16/25) Pork/Porcine Containing Products (Unverified Allergy, Unknown, 12/05/24) red dye (Unverified Allergy, Unknown, 05/04/25) Home Meds Active Scripts Cephalexin Monohydrate (Keflex) 500 Mg Cap, 1 CAP PO QID for pyelonephritis MDD 2 gram for 7 Days, #28 CAP 0 Refills TAKE ONE CAPSULE EVERY 6 HOURS Prov:EOMRY SOLIS MD 02/26/25 Hydrocodone/Acetaminophen (Hydrocodon-Acetaminophen 5-325) 5 Mg-325 Mg Tablet, 1 TAB PO Q6HPRN PRN for MODERATE PAIN (4-6), #20 TAB Prov:MARY JERRY MD 02/26/25 Past Medical History Past Medical History: Asthma, Kidney Stone Medical History Other: HX OF KIDNEY STONES Past Surgical History: Other Surgical History Other: RT NEPHROSTOMY TUBE DUE TO KIDNEY STONES Social History Social History: Negative, Lives with family Female( History) History: Not Applicable Constitutional: (+) chills, (+) fever EENTM: (-) eye pain, (-) blurred vision, (-) tearing, (-) double vision, (-) ear pain, (-) ear discharge, (-) nose pain, (-) nose congestion, (-) throat pain, (-) Throat swelling, (-) mouth pain, (-) tooth pain, (-) mouth swelling, (-) other documentation Respiratory: (-) cough, (-) orthopnea, (-) short of breath, (-) stridor, (-) wheezing, (-) other documentation Cardiovascular: (-) chest pain, (-) edema, (-) palpitations, (-) syncope, (-) dyspnea on exertion, (-) other documentation Gastrointestinal/Abdominal: (+) nausea, (+) vomiting Genitourinary: (-) vaginal discharge, (-) vaginal bleeding, (-) dysuria, (-) frequency, (-) hematuria, (-) pain, (-) other documentation Musculoskeletal: (+) Neck pain, (+) back pain, (+) Flank Pain Physical Exam General Appearance: (+) mild distress Orientation: (+) alert, (+) oriented x 3 Head/Face Trauma: No Eye: bilateral eye normal inspection, bilateral eye PERRL, bilateral eye EOMI Ear, Nose, Throat: (+) hearing grossly normal, (+) normal ENT inspection, (+) moist mucous membraine Neck: (+) normal inspection, (+) supple, (+) full range of motion Respiratory: (+) chest non-tender, (+) lungs clear Heart: (+) regular, (+) no gallop Vascular: (+) no edema, (+) normal peripheral pulse, (+) no JVD Gastrointestinal: (+) soft, (+) non-tender, (+) no organomegaly, (+) bowel sound present Back: (+) no CVA tenderness, (+) no vertebral tenderness Results Laboratory and Microbiology Lab and Micro Result Laboratory Tests Test 05/04/25 20:06 05/04/25 20:11 White Blood Count 11.7 K/uL (4.8-10.8) H Red Blood Count 4.29 MIL/uL (4.00-5.50) Hemoglobin 13.1 g/dL (12.0-16.0) Hematocrit 38.2 % (36-48) Mean Corpuscular Volume 89.0 fL (79-99) Mean Corpuscular Hemoglobin 30.5 pg (27.0-33.0) Mean Corpuscular Hemoglobin Concent 34.3 g/dL (32.0-36.0) Red Cell Distribution Width 12.2 % (11.0-15.5) Platelet Count 240 K/uL (130-400) Mean Platelet Volume 9.4 fL (7.5-10.5) Immature Granulocyte % (Auto) 0.3 % (0-1) Neutrophils (%) (Auto) 83.4 % (40.0-77.0) H Lymphocytes (%) (Auto) 10.6 % (21.0-51.0) L Monocytes (%) (Auto) 5.1 % (3.0-13.0) Eosinophils (%) (Auto) 0.3 % (0.0-8.0) Basophils (%) (Auto) 0.3 % (0.0-5.0) Neutrophils # (Auto) 9.8 K/uL (1.8-7.7) H Lymphocytes # (Auto) 1.2 K/uL (1.0-4.8) Monocytes # (Auto) 0.6 K/uL (0.1-1.0) Eosinophils # (Auto) 0.04 K/uL (0.00-0.70) Basophils # (Auto) 0.03 K/uL (0.00-0.20) Absolute Immature Granulocyte (auto 0.04 K/uL (0-1) Nucleated Red Blood Cells 0.0 % (0.0-0.19) Sodium Level 138 mmol/L (136-145) Potassium Level 3.4 mmol/L (3.5-5.1) L Chloride Level 101 mmol/L (101-111) Carbon Dioxide Level 29 mmol/L (21-32) Blood Urea Nitrogen 15 mg/dL (7-18) Creatinine 0.8 mg/dL (0.5-1.0) Glomerular Filtration Rate Calc 88 mL/min (>90) Random Glucose 202 mg/dL (70-105) H Total Calcium 9.2 mg/dL (8.5-10.1) Total Bilirubin 0.8 mg/dL (0.2-1.0) Aspartate Amino Transf (AST/SGOT) 18 U/L (10-37) Alanine Aminotransferase (ALT/SGPT) 25 U/L (12-78) Alkaline Phosphatase 131 U/L (50-136) Troponin I High Sensitivity < 4 ng/L (4-50) L B-Type Natriuretic Peptide 17 pg/mL (0-100) Total Protein 7.7 g/dL (6.0-8.3) Albumin 3.7 g/dL (3.5-5.0) Urine Color YELLOW (YELLOW) Urine Appearance CLEAR (CLEAR) Urine pH 5.5 (5.0-8.0) Urine Specific [place] 1.023 (1.001-1.031) Urine Protein NEGATIVE mg/dL (NEGATIVE) Urine Glucose (UA) NEGATIVE mg/dL (NEGATIVE) Urine Ketones NEGATIVE mg/dL (NEGATIVE) Urine Occult Blood NEGATIVE (NEGATIVE) Urine Nitrate NEGATIVE (NEGATIVE) Urine Bilirubin NEGATIVE mg/dL (NEGATIVE) Urine Urobilinogen 0.2 mg/dL (0.2-1.0) Urine Leukocyte Esterase 250 Angela/uL (NEGATIVE) H Urine RBC 2-5 /HPF (0-1) H Urine WBC 51-100 /HPF (0-1) H Urine Squamous Epithelial Cells FEW /HPF (0-2) Urine Bacteria None /HPF (None Seen) Urine Yeast RARE /HPF (None Seen) Urine HCG, Qualitative NEGATIVE (NEGATIVE) MDM MDM: Differential diagnosis: Kidney stone, dehydration, electrolyte abnormalities, muscle spasm, UTI, gallbladder pain pyelonephritis Rationale: Tests considered and ordered secondary to shared decision making include: Previous outside records reviewed: Old ER visits. Risk of complication and/or morbidity or mortality of patient management: None Medications-Per medication reconciliation Need for hospitalization: Patient does meet criteria for hospitalization. Need for emergency major/minor surgery: No There are no social concerns with this patient. Prescription drug management Prescriptions will include symptomatic care Patient's prior external medical records from other ER visits were reviewed by me as indicated. Prior testing and results from previous visits were reviewed. Prior tests were taken into account with medical decision making and resource utilization, independent historian/historians were used to obtain complete medical history. I independently interpreted the test that were performed, results were reviewed by me and considered findings on radiology if ordered. Patient does have mild elevation in her white blood cell count. She has esterase activity in her urine. The CT scan without contrast shows no kidney stones. I have given the patient a g of Ancef. As well as pain medications and muscle relaxants. I have also given her a L of fluid. We will discharge her home with a prescription for her urinary tract infection. ED Course Orders Procedure Category Date Status Time 12 Lead Ekg Tracing- EKG 05/04/25 Resulted Technical 19:41 Comprehensive LAB 05/04/25 Complete Metabolic Panel 19:41 Cbc With Differential LAB 05/04/25 Complete 19:41 ,Urine Test LAB 05/04/25 Complete 19:41 Urinalysis Profile LAB 05/04/25 Complete 19:41 Orphenadrine Citrate PHA 05/04/25 Complete (Norflex) 20:00 Ondansetron 4mg Inj PHA 05/04/25 Complete (Zofran 4mg Inj) 20:00 Lactated Ringers PHA 05/04/25 In Process 1000ml (Lactated 19:41 B-Type Natriuretic LAB 05/04/25 Complete Peptide 20:02 Troponin I High LAB 05/04/25 Complete Sensitivity 20:02 Culture Urine ABRAHAM 05/04/25 In Process 20:27 Ct Abdomen/Pelvis W/O CT 05/04/25 Resulted Contrast 22:36 Acetaminophen 325 Tab PHA 05/04/25 Complete (Tylenol 325mg Tab 23:00 Cefazolin Sodium 1 Gm PHA 05/04/25 Complete Vial (Ancef 1 Gm V 23:33 Orphenadrine Citrate PHA 05/05/25 Complete (Norflex) 01:00 Triamcinolone Acet PHA 05/05/25 Complete 40mg/Ml 1ml (Kenalog 01:00 Ketorolac PHA 05/05/25 Complete Tromethamine 30mg/Ml 01:00 Current Medications Medications (Trade) Dose Ordered Sig/Juan Route PRN Reason Start Time Stop Time Status Last Admin Dose Admin Acetaminophen (TYLenol 325MG TAB) 650 mg ONCE ONCE PO 05/04/25 23:00 05/04/25 23:03 DC 05/04/25 23:27 Cefazolin Sodium (ANCEF 1 gm vial) 1 gm ONCE STAT IVP 05/04/25 23:33 05/04/25 23:36 DC 05/04/25 23:45 Ketorolac Tromethamine (toRADol) 30 mg ONCE ONCE IVP 05/05/25 01:00 05/05/25 01:01 DC 05/05/25 00:45 Lactated Ringer's (Lactated Ringers 1000ml) 1,000 ml BOLUS IV 05/04/25 19:41 06/03/25 19:40 05/04/25 22:03 Ondansetron HCl (zoFRAN 4MG INJ) 4 mg ONCE IVP 05/04/25 20:00 05/04/25 23:59 DC 05/04/25 22:03 Orphenadrine Citrate (Norflex) 60 mg ONCE IVP 05/04/25 20:00 05/04/25 23:59 DC 05/04/25 22:03 Orphenadrine Citrate (Norflex) 60 mg ONCE ONCE IVP 05/05/25 01:00 05/05/25 01:01 DC Triamcinolone Acetonide (Kenalog 40) 40 mg ONCE ONCE IM 05/05/25 01:00 05/05/25 01:01 DC Vital Signs Date Time Temp Pulse Resp B/P (MAP) Pulse Ox O2 Delivery O2 Flow Rate FiO2 05/04/25 23:27 98.8 77 18 145/66 99 Room Air* 0 21 05/04/25 23:27 100.2 05/04/25 19:13 98.2 107 20 127/88 100 Room Air DX & DISP Disposition: Discharge Departure Impression: Primary Impression: UTI (urinary tract infection) Condition: Stable Scripts Nitrofurantoin Macrocrystal (Nitrofurantoin) 100 Mg Capsule 1 CAP PO BID for 7 Days, #14 CAP 0 Refills Prov: JOSE G PAUL MD 05/05/25 Additional Instructions: You have a Urinary Tract Infection. I have given you some antibiotics here and sent a prescription for antibiotics to your pharmacy. I am concerned that your back pain could be due to muscle tension from dehydration. I understand that you have been drinking a lot of water and urinating a lot but you could still be dehydrated. I strongly recommend that you drink plenty of fluids to the point that your urine is clear at least once a day. Please follow-up with her primary care physician if your back pain does not resolve with the antibiotic therapy. Referrals: AIDE HINTON PA-C (PCP) JOSE G PAUL MD May 04, 2025 20:08
--- NOTE | 2025-05-04 20:10 | NUR ---
UA COLLECTED AND SENT
[2025-05-04 20:13] LABS: IMMATURE GRANULOCYTE ABSOLUTE 0.04 K/uL (0-1); NUCLEATED RED BLOOD CELLS 0.0 % (0.0-0.19); PLATELET COUNT (AUTO) 240 K/uL (130-400); RED BLOOD CELL COUNT(AUTO) 4.29 MIL/uL (4.00-5.50); RED CELL DISTRIBUTION WIDTH 12.2 % (11.0-15.5); WHITE BLOOD COUNT (AUTO) 11.7 K/uL (4.8-10.8)
[2025-05-04 20:23] LABS: CREATININE 0.8 mg/dL (0.5-1.0); GLOMERULAR FILTR. RATE CALC 88.0 mL/min (>90); GLUCOSE,RANDOM 202.0 mg/dL (70-105); SODIUM SERUM 138.0 mmol/L (136-145); UREA NITROGEN, BLOOD 15.0 mg/dL (7-18)
[2025-05-04 20:25] LABS: APPEARANCE,URINE CLEAR (CLEAR); GLUCOSE, URINE (UA) NEGATIVE (NEGATIVE); LEUKOCYTE ESTERASE ,URINE 250 Leu/uL (NEGATIVE); NITRATE,URINE NEGATIVE (NEGATIVE); OCCULT BLOOD,URINE NEGATIVE (NEGATIVE)
[2025-05-04 20:27] LABS: ADD UA MICROSCOPIC YES
[2025-05-04 20:28] LABS: HCG,QUALITATIVE URINE NEGATIVE (NEGATIVE)
[2025-05-04 20:32] LABS: SQUAMOUS EPITHELIAL CELL,UR FEW /HPF (0-2); YEAST,URINE BUDDING RARE /HPF (None Seen)
[2025-05-04 20:34] LABS: ASPARTATE AMINOTRANSFERASE 18.0 U/L (10-37); TOTAL PROTEIN, SERUM 7.7 g/dL (6.0-8.3)
[2025-05-04] MEDS: LACTATED RINGERS 1000ML IV SCH (22:03)
[2025-05-04] MEDS: ORPHENADRINE 60MG/2ML IVP SCH (22:03)
[2025-05-05 00:06] VITALS: TEMP 99.2
[2025-05-05] MEDS: ORPHENADRINE 60MG/2ML IVP ONE (00:45)
--- NOTE | 2025-05-05 01:05 | HMCIMG ---
EXAM: CT Abdomen and Pelvis Without IV contrast CLINICAL HISTORY: Patient presents with suspected pyelonephritis. TECHNIQUE: Axial computed tomography images of the abdomen and pelvis without intravenous contrast. CONTRAST: No IV contrast. COMPARISON: 02/24/2025. FINDINGS: LUNG BASES: Clear without pleural effusion. LIVER: Diffuse hepatic steatosis. GALLBLADDER AND BILE DUCTS: Gallbladder contracted. Altered densities within the gallbladder lumen. No biliary ductal dilatation. PANCREAS: Normal morphology. SPLEEN: Normal size and attenuation. ADRENAL GLANDS: Normal bilaterally. KIDNEYS, URETERS, AND BLADDER: Few stable bilateral renal papillary concretions, more pronounced on the left. No hydronephrosis or hydroureter. Interval resolution of the previously demonstrated right renal pelvic wall thickening and associated mild fat stranding. Urinary bladder suboptimally distended, otherwise unremarkable. STOMACH AND BOWEL: Small hiatus hernia. Uncomplicated colonic diverticula. Circumferential mural thickening of the sigmoid colon, possibly related to underdistention. Mild constipation. No obstruction. APPENDIX: No CT evidence of acute appendicitis. PERITONEUM: No free fluid or free air. LYMPH NODES: No lymphadenopathy. REPRODUCTIVE: Unremarkable as visualized. VASCULATURE: The abdominal aorta is normal in caliber without an aneurysm. BONES: Multilevel mild to moderate spondylosis. Grade I retrolisthesis of L5 over S1. No acute fracture or aggressive osseous lesion. IMPRESSION: Mild hydroureteronephrosis on the right side, which could be secondary to the recent passage of a right ureteral calculus. Mild interval improvement in the right renal pelvic wall thickening. Few stable bilateral renal papillary concretions, more pronounced on the left. Diffuse hepatic steatosis. Contracted gallbladder with altered density within the gallbladder lumen. Recommend an ultrasound of the gallbladder in a fasting state for an optimal evaluation. Small hiatus hernia. Uncomplicated colonic diverticula. Circumferential mural thickening of the sigmoid colon, possibly related to underdistention. Mild constipation. /[place]
[2025-05-05] MEDS ORDERED: NITR100C PO (01:10)
[2025-05-05] MEDS: TRIAMCINOLONE ACETONIDE 40 MG/ML 1ML VIAL IM ONE (01:26)
[2025-05-05 01:32] VITALS: BP 135/66; PULSE 75; RESP 18; TEMP 98.8; O2SAT 100
== END 2025-05-05 01:35 | disposition home or self-care (01) ==
LOC: EDH 19:11
DX: N39.0 Urinary tract infection, site not specified (principal); J45.909 Unspecified asthma, uncomplicated; Z79.899 Other long term (current) drug therapy; Z88.8 Allergy status to other drugs, medicaments and biological substances
CPT/HCPCS: 99285; 74176; 96374; 96375 ×2; 96361; 84484; 80053; 83880; 85025; 87086 ×2; 87186; 81001; 81025; 36415; 93005; J7120; J0690; J2405; J1885; J3301; J2360

== ENCOUNTER 2025-06-19 23:58 | Inpatient (IN) | payer OTHER ==
[~2025-06-19] VITALS: Ht 154.9 cm; Wt 63.0 kg
--- NOTE | 2025-06-20 01:20 | NUR ---
PT CARE ASSUMED AT THIS TIME
--- NOTE | 2025-06-20 01:21 | ERN ---
General Chief Complaint: Lower Extremity Pain/Injury Stated Complaint: C/O PAIN TO LEFT LEG; HX OF BLOOD CLOT Time Seen by MD: 00:29 Source: patient History of Present Illness Initial Comments [age] year old female with a history of hypertension and kidney stones and being intubated here at this hospital for epiglottitis and respiratory failure. Six days ago patient noticed swelling in her left neck and experience low blood pressure and went to [facility] where she was admitted with a pulmonary embolism and DVTs. She was discharged from there and was unable to fill any of her prescriptions or medications. She comes here with concerns of increased left leg swelling and possible drooping of her left face. Allergies: Coded Allergies: iodine (Unverified Allergy, Severe, ANAPHYLAXIS, 01/16/25) Pork/Porcine Containing Products (Unverified Allergy, Unknown, 12/05/24) red dye (Unverified Allergy, Unknown, 05/04/25) Home Meds No Active Prescriptions or Reported Meds Past Medical History Past Medical History: Asthma Medical History Other: HX OF KIDNEY STONES, PE Past Surgical History: Other Surgical History Other: RT NEPHROSTOMY TUBE DUE TO KIDNEY STONES Social History Social History: Negative, Lives with family Female( History) History: Not Applicable Constitutional: (-) chills, (-) diaphoresis, (-) fever, (-) malaise, (-) weakness, (-) other documentation EENTM: (-) eye pain, (-) blurred vision, (-) tearing, (-) double vision, (-) ear pain, (-) ear discharge, (-) nose pain, (-) nose congestion, (-) throat pain, (-) Throat swelling, (-) mouth pain, (-) tooth pain, (-) mouth swelling, (-) other documentation Respiratory: (-) cough, (-) orthopnea, (-) short of breath, (-) stridor, (-) wheezing, (-) other documentation Cardiovascular: (-) chest pain, (-) edema, (-) palpitations, (-) syncope, (-) dyspnea on exertion, (-) other documentation Gastrointestinal/Abdominal: (-) nausea, (-) vomiting, (-) diarrhea, (-) abdominal pain, (-) abdominal distention, (-) constipation, (-) rectal bleeding, (-) dark stool/melena, (-) other documentation Genitourinary: (-) vaginal discharge, (-) vaginal bleeding, (-) dysuria, (-) frequency, (-) hematuria, (-) pain, (-) other documentation Musculoskeletal: (-) Neck pain, (-) back pain, (-) Flank Pain, (-) joint pain, (-) joint swelling, (-) muscle pain, (-) muscle stiffness, (-) gout, (-) other documentation Physical Exam General Appearance: (+) mild distress Orientation: (+) alert, (+) oriented x 3 Head/Face Trauma: No Face Comment Patient does not have a drooping I or a drooping lip on the left side she can smile normally and raise her eyebrows normally. Eye: bilateral eye normal inspection, bilateral eye PERRL, bilateral eye EOMI Ear, Nose, Throat: (+) hearing grossly normal, (+) normal ENT inspection, (+) moist mucous membraine Neck: (+) normal inspection, (+) supple, (+) full range of motion Respiratory: (+) chest non-tender, (+) lungs clear, (+) well ventilated Heart: (+) regular, (+) no gallop Vascular: (+) edema Vascular Comment Possible cord left calf with swelling left calf Gastrointestinal: (+) soft, (+) non-tender Extremities Comment Right groin has ecchymosis consistent with a procedure through IR. Left calf swelling MDM MDM: Differential diagnosis: Possible CVA although I doubt it. I am concerned about a clot in her left leg a. I am concerned that she has not filled any of her prescription since she was discharged from the last hospital stay. We may need to admit her to simply for anticoagulation therapy. Rationale: Tests considered and ordered secondary to shared decision making include: Previous outside records reviewed: Old ER visits. Risk of complication and/or morbidity or mortality of patient management: None Medications-Per medication reconciliation Need for hospitalization: Patient does meet criteria for hospitalization. Need for emergency major/minor surgery: No There are no social concerns with this patient. Prescription drug management Prescriptions will include symptomatic care Patient's prior external medical records from other ER visits were reviewed by me as indicated. Prior testing and results from previous visits were reviewed. Prior tests were taken into account with medical decision making and resource utilization, independent historian/historians were used to obtain complete medical history. Patient's ultrasound shows a clot at the trifurcation of her left calf veins. I will start a heparin drip and admit her to the hospital. I independently interpreted the test that were performed, results were reviewed by me and considered findings on radiology if ordered. ED Course Orders Procedure Category Date Status Time Us Venous Doppler US 06/20/25 Resulted Bilateral 01:11 Vital Signs Date Time Temp Pulse Resp B/P (MAP) Pulse Ox O2 Delivery O2 Flow Rate FiO2 06/20/25 00:02 96.8 96 20 122/83 97 Room Air DX & DISP Disposition: Inpatient Departure Impression: Primary Impression: DVT (deep venous thrombosis) Additional Impression: History of pulmonary embolism Condition: Stable Scripts No Active Prescriptions or Reported Meds Referrals: AIDE HINTON PA-C (PCP) JOSE G PAUL MD Jun 20, 2025 01:21
--- NOTE | 2025-06-20 03:38 | HMCIMG ---
EXAM: US for Deep Venous Thrombosis, bilateral Lower Extremity. CLINICAL HISTORY: Rule out deep venous thrombosis. TECHNIQUE: Real-time ultrasound scan of the veins of the bilateral lower extremity with color Doppler flow, spectral waveform analysis, and compression. COMPARISON: None provided. FINDINGS: DEEP VEINS: Partially occluding thrombus within the left popliteal vein. Unremarkable right popliteal vein. The common femoral and superficial femoral veins are echolucent and compressible. There is normal color Doppler flow throughout. The visualized calf veins appear patent. SOFT TISSUES: No popliteal fossa cyst or other abnormalities. IMPRESSION: Partially occluding deep venous thrombosis within the left popliteal vein. The remaining left and right lower extremity veins are within normal limits. /Ele
--- NOTE | 2025-06-20 04:15 | EKG ---
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
[2025-06-20] MEDS: ORPHENADRINE 60MG/2ML IVP ONE (04:25)
[2025-06-20] MEDS: LACTATED RINGERS 1000ML IV STA (04:30)
[2025-06-20 04:51] LABS: IMMATURE GRANULOCYTE ABSOLUTE 0.31 K/uL (0-1); NUCLEATED RED BLOOD CELLS 0.0 % (0.0-0.19); PLATELET COUNT (AUTO) 372 K/uL (130-400); RED BLOOD CELL COUNT(AUTO) 3.24 MIL/uL (4.00-5.50); RED CELL DISTRIBUTION WIDTH 13.7 % (11.0-15.5); WHITE BLOOD COUNT (AUTO) 8.9 K/uL (4.8-10.8)
[2025-06-20 04:58] LABS: CREATININE 0.6 mg/dL (0.5-1.0); GLOMERULAR FILTR. RATE CALC 107.0 mL/min (>90); GLUCOSE,RANDOM 106.0 mg/dL (70-105); SODIUM SERUM 144.0 mmol/L (136-145); UREA NITROGEN, BLOOD 10.0 mg/dL (7-18)
[2025-06-20 05:02] LABS: ASPARTATE AMINOTRANSFERASE 21.0 U/L (10-37); TOTAL PROTEIN, SERUM 6.8 g/dL (6.0-8.3)
[2025-06-20 05:34] LABS: INR 1.08 (0.85-1.15)
--- NOTE | 2025-06-20 07:09 | NUR ---
REPORT GIVEN TO MANUEL MACKAY AT THIS TIME
[2025-06-20 08:10] VITALS: BP 127/73; PULSE 78; RESP 20; TEMP 98.3
[2025-06-20 11:00] VITALS: BP 97/62; PULSE 67; RESP 20; TEMP 97.5
--- NOTE | 2025-06-20 11:57 | HP ---
[facility] HISTORY AND PHYSICAL Date of Service: Jun 20, 2025 Time of Service: 11:57 HISTORY OF PRESENT ILLNESS: 55-year-old female with past medical history of asthma, nephrolithiasis who presented to hospital secondary to left lower extremity pain and swelling, pain in right shoulder, chest pain. Patient states that she recently got admitted to [facility] on 06/12/2025 due to shortness of breath, chest pain. Patient got diagnosed with pulmonary embolism and embolectomy done at [facility] and they discharged the patient with oral anticoagulants on 06/19/2025. Patient says that her insurance did not cover the medication apixaban so she did not take it. She says that she started having severe pain in left lower extremity yesterday night. She went to ED in [facility] but because of very long wait time she came to [facility] for further evaluation. Patient says that she was admitted to this facility on 05/09/2025 due to chest pain ,sore throat and she got diagnosed with epiglottitis. Her hospital course got complicated by acute hypoxic respiratory failure leading to intubation. She got discharged on 05/24/2025. On arrival to ED vitals temperature 96.8, blood pressure 122/83, heart rate 96, respiratory rate 20, saturating 97 at room air. On Examination lower extremity was swollen, tender. EKG showed sinus rhythm, troponin I was within normal range. Doppler of left lower extremity showed partially occluding deep venous thrombosis within the left popliteal vein. Patient received ketorolac 30 mg IV once, Norflex 60 mg IV once, LR 100 mL bolus stat. Patient was started on heparin drip and Cardiology consult requested. Patient will be admitted to [facility] for further evaluation. REVIEW OF SYSTEMS CONSTITUTIONAL: Denies fevers, chills, or night sweats. No unintentional weight loss reported. NEUROLOGICAL: Denies headache, amaurosis fugax, motor weakness, sensory deficit, vertigo/spinning sensation, gait abnormalities, or tremors. ENT: No hearing loss, otalgia, otorrhea, rhinitis, rhinorrhea, hoarseness, or sore throat. CARDIOVASCULAR: Denies any exertional angina, dyspnea on exertion, orthopnea, paroxysmal nocturnal dyspnea, palpitations, life-threatening arrhythmias, claudication. PULMONARY: Denies any shortness of breath, cough, phlegm/sputum, hemoptysis, pleuritic chest pain. SLEEP: Denies morning headaches, daytime somnolence or napping. Denies difficulty falling asleep, staying asleep, waking from sleep. Denies knowledge of snoring. GASTROINTESTINAL: Denies any type of dysphagia to either liquids or solids. Denies nausea, vomiting, pyrosis, early satiety, abdominal pain, diarrhea, constipation, or changes in stool consistency or caliber. Denies coffee-ground emesis, hematemesis, hematochezia, or melanotic stools. GENITOURINARY: Denies frequency, urgency, nocturia, hematuria or incontinence (Storage/Irritative symptoms.) Low urinary stream, straining to void, urinary intermittency or hesitancy, splitting of the voiding stream, terminal dribbling. ENDOCRINOLOGIC: Denies polyuria, polydipsia, polyphagia or heat/cold intolerances. HEMATOLOGIC: Denies thrombophilia/previous clots, or coagulopathy/bleeding disorders. ONCOLOGIC: Denies personal history of malignancy. DERMATOLOGIC: Denies rashes or pruritus. PSYCHIATRIC: Denies any suicidal or homicidal ideation. Denies hallucinations. PAST MEDICAL HISTORY: History of asthma, nephrolithiasis PAST SURGICAL HISTORY: History of nephrostomy tube placement, history of stent placement PAST SOCIAL HISTORY: Denies any smoking, alcohol, drug use FAMILY HISTORY: Denied any pertinent family history Coded Allergies: iodine (Unverified Allergy, Severe, ANAPHYLAXIS, 01/16/25) Pork/Porcine Containing Products (Unverified Allergy, Unknown, 12/05/24) red dye (Unverified Allergy, Unknown, 05/04/25) PHYSICAL EXAM GENERAL APPEARANCE: The patient is awake, alert, and oriented, in no acute ca rdiopulmonary distress. NEUROLOGICAL: Cranial nerves II-XII grossly intact. Motor is 5/5 in bilateral upper and lower extremities proximal to distal. No sensory deficits. HEENT: Face is symmetric. Pupils are equal and reactive. Extraocular movements are intact. NECK: Supple. No JVD. No thyromegaly. No submental, submandibular, pre- /postauricular, occipital or supraclavicular lymphadenopathy. CHEST: Normal chest expansion. No Telemetry. LUNGS: Absence of any rales, rhonchi or any wheezing. CARDIOVASCULAR: Regular. S1 and S2 normal. No appreciable rubs, murmurs or gallops. ABDOMEN: Soft, nontender, and nondistended. There is no rebound, voluntary guarding, or rigidity. : Deferred. No [place]. EXTREMITIES: Left lower extremity swelling No clubbing. Good capillary refill. SKIN: No skin breakdown. Vital Sign (Last 24 Hours) 06/20/25 06/20/25 08:00 08:10 Temp 98.2 Pulse 78 Resp 20 B/P (MAP) 127/73 Pulse Ox 98 O2 Delivery Room Air O2 Flow Rate 0 FiO2 21 LABS: Laboratory: Test 06/20/25 11:22 06/20/25 04:34 Range/Units Troponin I High Sensitivity 5 4-50 ng/L White Blood Count 8.9 4.8-10.8 K/uL Red Blood Count 3.24 L 4.00-5.50 MIL/uL Hemoglobin 10.1 L 12.0-16.0 g/dL Hematocrit 31.5 L 36-48 % Mean Corpuscular Volume 97.2 79-99 fL Mean Corpuscular Hemoglobin 31.2 27.0-33.0 pg Mean Corpuscular Hemoglobin Concent 32.1 32.0-36.0 g/dL Red Cell Distribution Width 13.7 11.0-15.5 % Platelet Count 372 130-400 K/uL Mean Platelet Volume 9.3 7.5-10.5 fL Immature Granulocyte % (Auto) 3.5 H 0-1 % Neutrophils (%) (Auto) 64.6 40.0-77.0 % Lymphocytes (%) (Auto) 22.1 21.0-51.0 % Monocytes (%) (Auto) 8.7 3.0-13.0 % Eosinophils (%) (Auto) 0.3 0.0-8.0 % Basophils (%) (Auto) 0.8 0.0-5.0 % Neutrophils # (Auto) 5.7 1.8-7.7 K/uL Lymphocytes # (Auto) 2.0 1.0-4.8 K/uL Monocytes # (Auto) 0.8 0.1-1.0 K/uL Eosinophils # (Auto) 0.03 0.00-0.70 K/uL Basophils # (Auto) 0.07 0.00-0.20 K/uL Absolute Immature Granulocyte (auto 0.31 0-1 K/uL Nucleated Red Blood Cells 0.0 0.0-0.19 % Prothrombin Time 11.3 9.6-11.6 SEC Prothromb Time International Ratio 1.08 0.85-1.15 Activated Partial Thromboplast Time 23.0 L 26.3-35.5 SEC Sodium Level 144 136-145 mmol/L Potassium Level 4.2 3.5-5.1 mmol/L Chloride Level 105 101-111 mmol/L Carbon Dioxide Level 27 21-32 mmol/L Blood Urea Nitrogen 10 7-18 mg/dL Creatinine 0.6 0.5-1.0 mg/dL Glomerular Filtration Rate Calc 107 >90 mL/min Random Glucose 106 H 70-105 mg/dL Total Calcium 9.1 8.5-10.1 mg/dL Total Bilirubin 0.9 0.2-1.0 mg/dL Aspartate Amino Transf (AST/SGOT) 21 10-37 U/L Alanine Aminotransferase (ALT/SGPT) 29 12-78 U/L Alkaline Phosphatase 88 50-136 U/L Total Protein 6.8 6.0-8.3 g/dL Albumin 3.5 3.5-5.0 g/dL Current Medications Medications (Trade) Dose Ordered Sig/Juan Route PRN Reason Start Time Stop Time Status Last Admin Dose Admin Acetaminophen (TYLenol 325MG TAB) 650 mg Q4H PRN PO MILD PAIN (1-3) 06/20/25 06:30 07/20/25 06:29 Acetaminophen (TYLenol 325MG TAB) 650 mg Q6H PRN PO TEMPERATURE GREATER THAN 101.5 06/20/25 06:30 07/20/25 06:29 Famotidine (Pepcid 20mg Tab) 20 mg DAILY PO 06/20/25 09:00 07/20/25 08:59 Heparin Sodium (Porcine) (HEParin 5,000 UNIT VIAL) *calculation based on ACTUAL B... AD PRN IV HEPARIN PROTOCOL 06/20/25 05:00 07/20/25 04:59 06/20/25 04:59 4,000 UNIT Heparin Sodium/ Dextrose 250 ml @ 0 mls/hr Q6H IV 06/20/25 05:00 07/20/25 04:59 06/20/25 05:16 10.03 MLS/HR Lactated Ringer's (Lactated Ringers 1000ml) 1,000 ml BOLUS STAT IV 06/20/25 03:46 06/20/25 03:59 DC 06/20/25 04:30 1,000 ML Ondansetron HCl (zoFRAN 4MG INJ) 4 mg Q6H PRN IV NAUSEA/VOMITING 06/20/25 06:30 07/20/25 06:29 DIAGNOSTICS / RADIOLOGY: [place] [address] [place] [address] IMAGING REPORT Signed PATIENT: FRANCESCO BARNARD MR#: [id number] : 1970 SEX: F AGE: 55 LOCATION: [facility] ORDER 3 STATUS: REG REPORT#: [id number] SERVICE 0 REASON: r/o DVT ORDERING PHYSICIAN: JOSE G PAUL MD PROCEDURE: VENOUS JASPER - US VENOUS DOPPLER BILATERAL EXAM: US for Deep Venous Thrombosis, bilateral Lower Extremity. CLINICAL HISTORY: Rule out deep venous thrombosis. TECHNIQUE: Real-time ultrasound scan of the veins of the bilateral lower extremity with color Doppler flow, spectral waveform analysis, and compression. COMPARISON: None provided. FINDINGS: DEEP VEINS: Partially occluding thrombus within the left popliteal vein. Unremarkable right popliteal vein. The common femoral and superficial femoral veins are echolucent and compressible. There is normal color Doppler flow throughout. The visualized calf veins appear patent. SOFT TISSUES: No popliteal fossa cyst or other abnormalities. IMPRESSION: Partially occluding deep venous thrombosis within the left popliteal vein. The remaining left and right lower extremity veins are within normal limits. /[place] DICTATED BY: DANNY CAMACHO Jr., MD DATE: 06/20/25437 ELECTRONICALLY SIGNED BY: DANNY CAMACHO Jr., MD DATE: 06/20/25437 ASSESSMENT: -Acute deep venous thrombosis(DVT) of left popliteal vein POA -History of pulmonary embolism with recent embolectomy at [facility] POA -Limited access to prescribed medication due to financial constraints POA -Essential hypertension -History of nephrolithiasis and prior nephrostomy -Recent acute respiratory failure requiring intubation -Overweight(BMI 26.1 ) -Iodine allergy PLAN: Acute deep venous thrombosis(DVT) of left popliteal vein POA -patient was recently admitted to [facility], diagnosed with pulmonary embolism and embolectomy was done. -on arrival venous Doppler of lower extremity showed partially occluding DVT with a left popliteal vein -lab showed PT 11.3, INR 1.08, APTT 23.0 -patient was started on heparin drip -we will trend PT INR Limited access to prescribed medication due to financial constraints POA -patient had embolectomy done recently and was discharged home on Eliquis -patient was not taking medication as her insurance was not covering the medic ation -case management on board, will evaluate and assist with social needs. GI prophylaxis with Pepcid 20 mg p.o. daily Zofran 4 mg q.6 IV PRN for nausea or vomiting Acetaminophen 650 mg q.4 PRN p.o. for mild pain Acetaminophen 650 mg q.6 PO prn if temperature > 101.5 ATTESTATION BY PHYSICIAN I have seen and examined the patient. I reviewed the documentation, medical decision making, and treatment plan as noted by the resident above. I agree with the findings and plan of care. Perez Harvey IV, MD, ADIL SHAH QUADRI MD Jun 20, 2025 11:57
[2025-06-20 16:00] VITALS: BP 95/67; PULSE 80; RESP 18; TEMP 98.5
[2025-06-20 19:30] VITALS: BP 102/63; PULSE 84; RESP 18; TEMP 98.5
[2025-06-20 20:00] VITALS: O2SAT 99
--- NOTE | 2025-06-20 22:15 | CONS ---
CONSULT NOTE: CARDIOLOGY Reason for consult: DVT, PE HPI/story at presentation: This is a pleasant 55-year-old female with past medical history as below presents for lower extremity swelling, was recently discharged from [facility] with pulm embolism s/p thrombectomy. Was not taking Eliquis at home Past medical history: See below Allergies, Meds See chart Review of systems Review of Systems Constitutional: Negative for chills and fever. HENT: Negative for ear discharge and ear pain. Eyes: Negative for photophobia and discharge. Respiratory: Negative for cough, sputum production and stridor. Cardiovascular: Negative for chest pain and palpitations. Gastrointestinal: Negative for diarrhea and vomiting. Genitourinary: Negative for frequency. Musculoskeletal: Negative for myalgias. Skin: Negative for rash. Neurological: Negative for focal weakness and seizures. Endo/Heme/Allergies: Negative for polydipsia. Psychiatric/Behavioral: Negative for hallucinations. 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 Echocardiogram ordered and pending. Seen and examined 06/20/2025 at around 8 PM. ATTESTATION I was involved substantially in the care of this patient Number and complexity of problems addressed: 1 acute illness with systemic features Amount and or complexity of data Review of prior external note(s) from each unique source: 2+ Ordering of each unique test : 0 Review of the result(s) of each unique test: 2+ Assessment requiring an independent historian(s): No Independent interpretation of test performed by another MD/QHCP/appropriate source (not separately reported) : No Discussion of management or test interpretation with external MD/QHCP/appropriate source (not separately reported) : No Risk status (cardiac, billing related): Moderate KRISHAN BUITRAGO MD Jun 20, 2025 22:15
[2025-06-20 23:12] VITALS: BP 93/63; PULSE 83; RESP 18; TEMP 98.1
[2025-06-21] VITALS (7 sets, daily range): BP systolic 101–117; BP diastolic 65–72; PULSE 60–94; RESP 16–18; TEMP 97.6–98.2; O2SAT 97
[2025-06-21 03:51] LABS: IMMATURE GRANULOCYTE ABSOLUTE 0.44 K/uL (0-1); NUCLEATED RED BLOOD CELLS 0.0 % (0.0-0.19); PLATELET COUNT (AUTO) 311 K/uL (130-400); RED BLOOD CELL COUNT(AUTO) 2.88 MIL/uL (4.00-5.50); RED CELL DISTRIBUTION WIDTH 13.4 % (11.0-15.5); WHITE BLOOD COUNT (AUTO) 7.7 K/uL (4.8-10.8)
[2025-06-21 08:18] LABS: CREATININE 0.6 mg/dL (0.5-1.0); GLOMERULAR FILTR. RATE CALC 107.0 mL/min (>90); GLUCOSE,RANDOM 104.0 mg/dL (70-105); SODIUM SERUM 143.0 mmol/L (136-145); UREA NITROGEN, BLOOD 11.0 mg/dL (7-18)
[2025-06-21] MEDS: FAMOTIDINE 20MG TAB PO SCH (09:51)
--- NOTE | 2025-06-21 11:39 | CONS ---
[facility] CONSULTATION NOTE Date Patient Seen: Jun 21, 2025 Time of Visit: 11:38 Supervising Physician: Siddharth Garrido MD Reason for Consultation: [facility] Primary Care Physician: Gee Paige Outpatient Specialists: [ ] Inpatient Consults: Dr Alessandra RONDON Attending: Dr Dixon PROBLEM LIST: Acute deep venous thrombosis(DVT) of left popliteal vein POA History of pulmonary embolism with recent embolectomy at [facility] POA Hypercoagulable state POA not on her Rxd Eliquis 2/ financial constraints POA Essential hypertension History of nephrolithiasis and prior nephrostomy Recent acute respiratory failure requiring intubation Overweight(BMI 26.1 ) Iodine allergy HPI: This is a pleasant 55-year-old female with a past medical history of asthma, nephrolithiasis, recent respiratory failure requiring intubation for epiglottitis, recent saddle PE finding at [facility] status post pulmonary embolectomy and DVT finding discharged on Eliquis on 06/19/25. As per patient she did not obtain her prescribed Eliquis due to not covered by insurance would consider 800 dollars for a monthly supply and patient reports she is not able to afford. She presented on 06/20/25 to the ED for increased left lower extremity pain. She was found to have partially occluding DVT with the in the left popliteal vein and was started on heparin drip. APTT this morning 72.2 and continues with heparin per protocol. Hemoglobin of 9 and hematocrit of 26.4. Chemistry unremarkable. She is pending a 2D echo, awaiting further Cardiology recommendations. Patient is awake alert and oriented x3. Denies chest pain palpitations or shortness for breath. No major overnight events as per RN. She is currently hemodynamically stable and afebrile. She continues on heparin drip, therapeutic. No signs and symptoms of bleeding. She is currently on room air saturating 97% in no respiratory distress. For now hypercoagulable state lab workup ordered. Recommend Hematology consult. Plan: Follow cardiology recs continue heparin gtt per protocol monitor fo s/s of bleeding hypercoagulable state work up recommend hematology recommendation maintain o2 sats above 92% The rest per primary team PAST MEDICAL HX: see above PAST SURGICAL HX: noncontributory SOCIAL HISTORY: No tobacco, ETOH, or illicit drug use Coded Allergies: iodine (Unverified Allergy, Severe, ANAPHYLAXIS, 01/16/25) Pork/Porcine Containing Products (Unverified Allergy, Unknown, 12/05/24) red dye (Unverified Allergy, Unknown, 05/04/25) REVIEW OF SYSTEMS: General: No malaise or fever. Neurological: No fainting episodes or seizures. HEENT: No nasal congestion or nasal secretion. Respiratory: No cough, shortness of breath, or wheezing Cardiac: No chest pain or palpitations. Gastrointestinal: No vomiting or diarrhea. Genitourinary: No dysuria hematuria. Skin: No rashes or lesions. Hematological: No bruises or bleeding. Musculoskeletal: No joint pains or arthralgias. Psychiatric: No depression or panic attacks. PHYSICAL EXAM: GENERAL: alert, weak, awake oriented x 3 HEENT: EOMI, Sclera non icteric, moist mucosa NECK: Supple, no JVD, trachea midline LUNGS: Diminished breath sounds bilaterally. No wheezes HEART: Regular rate and rhythm. Normal S1 and S2, without murmurs ABD: Abdomen soft, nontender. Bowel sounds present EXT: No clubbing cyanosis or edema, reports some tenderness to left great toe. Bilateral lower extremity pedal pulse present. No discoloration noted to lower extremities. NEURO: Alert and oriented to person, follows commands Vital Signs (last 8hr) Date Time Temp Pulse Resp B/P (MAP) Pulse Ox O2 Delivery O2 Flow Rate FiO2 06/21/25 11:35 97.5 70 16 105/70 98 Room Air 06/21/25 07:59 97.9 62 16 101/68 96 Room Air LABS: Hematology Labs: Test 06/21/25 03:32 Range/Units White Blood Count 7.7 4.8-10.8 K/uL Red Blood Count 2.88 L 4.00-5.50 MIL/uL Hemoglobin 9.0 L 12.0-16.0 g/dL Hematocrit 26.4 L 36-48 % Mean Corpuscular Volume 91.7 79-99 fL Mean Corpuscular Hemoglobin 31.3 27.0-33.0 pg Mean Corpuscular Hemoglobin Concent 34.1 32.0-36.0 g/dL Red Cell Distribution Width 13.4 11.0-15.5 % Platelet Count 311 130-400 K/uL Mean Platelet Volume 9.3 7.5-10.5 fL Immature Granulocyte % (Auto) 5.7 H 0-1 % Neutrophils (%) (Auto) 57.4 40.0-77.0 % Lymphocytes (%) (Auto) 26.7 21.0-51.0 % Monocytes (%) (Auto) 9.3 3.0-13.0 % Eosinophils (%) (Auto) 0.5 0.0-8.0 % Basophils (%) (Auto) 0.4 0.0-5.0 % Neutrophils # (Auto) 4.4 1.8-7.7 K/uL Lymphocytes # (Auto) 2.1 1.0-4.8 K/uL Monocytes # (Auto) 0.7 0.1-1.0 K/uL Eosinophils # (Auto) 0.04 0.00-0.70 K/uL Basophils # (Auto) 0.03 0.00-0.20 K/uL Absolute Immature Granulocyte (auto 0.44 0-1 K/uL Nucleated Red Blood Cells 0.0 0.0-0.19 % Chemistry Labs: Test 06/21/25 03:32 06/20/25 18:07 06/20/25 04:34 Range/Units Sodium Level 143 136-145 mmol/L Potassium Level 3.6 3.5-5.1 mmol/L Chloride Level 106 101-111 mmol/L Carbon Dioxide Level 26 21-32 mmol/L Blood Urea Nitrogen 11 7-18 mg/dL Creatinine 0.6 0.5-1.0 mg/dL Glomerular Filtration Rate Calc 107 >90 mL/min Random Glucose 104 70-105 mg/dL Total Calcium 8.9 8.5-10.1 mg/dL Troponin I High Sensitivity < 4 L 4-50 ng/L Total Bilirubin 0.9 0.2-1.0 mg/dL Aspartate Amino Transf (AST/SGOT) 21 10-37 U/L Alanine Aminotransferase (ALT/SGPT) 29 12-78 U/L Alkaline Phosphatase 88 50-136 U/L Total Protein 6.8 6.0-8.3 g/dL Albumin 3.5 3.5-5.0 g/dL Coagulation Labs: Test 06/21/25 09:04 06/20/25 04:34 Range/Units Activated Partial Thromboplast Time 72.2 H 26.3-35.5 SEC Prothrombin Time 11.3 9.6-11.6 SEC Prothromb Time International Ratio 1.08 0.85-1.15 DIAGNOSTICS / RADIOLOGY RESULTS: [ [facility] [address] [place] [address] IMAGING REPORT Signed PATIENT: FRANCESCO BARNARD MR#: [id number] : 1970 SEX: F AGE: 55 LOCATION: [facility] ORDER 3 STATUS: REG ER REPORT#: [id number] SERVICE 0 REASON: r/o DVT ORDERING PHYSICIAN: JOSE G PAUL MD PROCEDURE: VENOUS JASPER - US VENOUS DOPPLER BILATERAL EXAM: US for Deep Venous Thrombosis, bilateral Lower Extremity. CLINICAL HISTORY: Rule out deep venous thrombosis. TECHNIQUE: Real-time ultrasound scan of the veins of the bilateral lower extremity with color Doppler flow, spectral waveform analysis, and compression. COMPARISON: None provided. FINDINGS: DEEP VEINS: Partially occluding thrombus within the left popliteal vein. Unremarkable right popliteal vein. The common femoral and superficial femoral veins are echolucent and compressible. There is normal color Doppler flow throughout. The visualized calf veins appear patent. SOFT TISSUES: No popliteal fossa cyst or other abnormalities. IMPRESSION: Partially occluding deep venous thrombosis within the left popliteal vein. The remaining left and right lower extremity veins are within normal limits. /[place] DICTATED BY: DANNY CAMACHO Jr., MD DATE: 06/20/25437 ELECTRONICALLY SIGNED BY: DANNY CAMACHO Jr., MD DATE: 06/20/25437 ATTESTATION BY PHYSICIAN I have evaluated the patient chart, medical records, and spoke with appropriate staff. I reviewed the documentation, medical decision making, and treatment plan as noted by the mid-level provider above. I agree with the findings and plan of care. Siddharth Garrido MD, [facility] Jun 21, 2025 11:38
--- NOTE | 2025-06-21 13:03 | NUR ---
DcP: HOME Sw met with pt who reports she was diagnosed with pulmonary embolism and embolectomy done at [facility] and they discharged the patient with oral anticoagulants on 06/19/2025. Patient says that her insurance did not cover the medication apixaban so she did not take it. Pt also reports she was given no pain meds at discharge and pain got too much she came here. Pt states medication was $800+ and she could not afford. Pt lives in a rental home with her daughter Debi Dominguez [phone] and pt's nephew. They provide long term and food for pt, and daughter assists pt with ADLS when needed. Pt has no applied for [facility], and states she does not qualify for any [facility] assistance. Pt is seen at [facility] by Dr Iam Paige for medical care and meds. Pt states she buys her meds at clinic as well. Pt has walker with seat and a shower chair at home. Sw provided pt with community resources for assistance in the future Addendum: 06/21/25 at 1312 by ERMIAS AREVALO Amended: Links added.
--- NOTE | 2025-06-21 13:30 | PN ---
[facility] PROGRESS NOTE Date of Service: Jun 21, 2025 Time of Service: 13:30 SUBJECTIVE: 55-year-old female with past medical history of asthma, nephrolithiasis who presented to hospital secondary to left lower extremity pain and swelling, pain in right shoulder, chest pain. Patient states that she recently got admitted to [facility] on 06/12/2025 due to shortness of breath, chest pain. Patient got diagnosed with pulmonary embolism and embolectomy done at [facility] and they discharged the patient with oral anticoagulants on 06/19/2025. Patient says that her insurance did not cover the medication apixaban so she did not take it. She says that she started having severe pain in left lower extremity yesterday night. She went to ED in [facility] but because of very long wait time she came to [facility] for further evaluation. Patient says that she was admitted to this facility on 05/09/2025 due to chest pain ,sore throat and she got diagnosed with epiglottitis. Her hospital course got complicated by acute hypoxic respiratory failure leading to intubation. She got discharged on 05/24/2025. On arrival to ED vitals temperature 96.8, blood pressure 122/83, heart rate 96, respiratory rate 20, saturating 97 at room air. On Examination lower extremity was swollen, tender. EKG showed sinus rhythm, troponin I was within normal range. Doppler of left lower extremity showed partially occluding deep venous thrombosis within the left popliteal vein. Patient received ketorolac 30 mg IV once, Norflex 60 mg IV once, LR 100 mL bolus stat. Patient was started on heparin drip and Cardiology consult requested. Patient will be admitted to [facility] for further evaluation. 06/21/2025: Patient was seen and evaluated bedside in room 224. Case discussed with RN, no acute overnight events. Patient is currently on heparin drip for deep venous thrombosis of left popliteal vein. Patient had recent embolectomy for pulmonary embolism at [facility]. Pending echo report. Cardiology on board, we will follow up with the recommendations. REVIEW OF SYSTEMS CONSTITUTIONAL: Denies fevers, chills, or night sweats. No unintentional weight loss reported. NEUROLOGICAL: Denies headache, amaurosis fugax, motor weakness, sensory deficit, vertigo/spinning sensation, gait abnormalities, or tremors. ENT: No hearing loss, otalgia, otorrhea, rhinitis, rhinorrhea, hoarseness, or sore throat. CARDIOVASCULAR: Denies any exertional angina, dyspnea on exertion, orthopnea, paroxysmal nocturnal dyspnea, palpitations, life-threatening arrhythmias, claudication. PULMONARY: Denies any shortness of breath, cough, phlegm/sputum, hemoptysis, pleuritic chest pain. SLEEP: Denies morning headaches, daytime somnolence or napping. Denies difficulty falling asleep, staying asleep, waking from sleep. Denies knowledge of snoring. GASTROINTESTINAL: Denies any type of dysphagia to either liquids or solids. Denies nausea, vomiting, pyrosis, early satiety, abdominal pain, diarrhea, constipation, or changes in stool consistency or caliber. Denies coffee-ground emesis, hematemesis, hematochezia, or melanotic stools. GENITOURINARY: Denies frequency, urgency, nocturia, hematuria or incontinence (Storage/Irritative symptoms.) Low urinary stream, straining to void, urinary intermittency or hesitancy, splitting of the voiding stream, terminal dribbling. ENDOCRINOLOGIC: Denies polyuria, polydipsia, polyphagia or heat/cold intoleranc es. HEMATOLOGIC: Denies thrombophilia/previous clots, or coagulopathy/bleeding disorders. ONCOLOGIC: Denies personal history of malignancy. DERMATOLOGIC: Denies rashes or pruritus. PSYCHIATRIC: Denies any suicidal or homicidal ideation. Denies hallucinations. PHYSICAL EXAM GENERAL APPEARANCE: The patient is awake, alert, and oriented, in no acute cardiopulmonary distress. NEUROLOGICAL: Cranial nerves II-XII grossly intact. Motor is 5/5 in bilateral upper and lower extremities proximal to distal. No sensory deficits. HEENT: Face is symmetric. Pupils are equal and reactive. Extraocular movements are intact. NECK: Supple. No JVD. No thyromegaly. No submental, submandibular, pre- /postauricular, occipital or supraclavicular lymphadenopathy. CHEST: Normal chest expansion. No Telemetry. LUNGS: Absence of any rales, rhonchi or any wheezing. CARDIOVASCULAR: Regular. S1 and S2 normal. No appreciable rubs, murmurs or gallops. ABDOMEN: Soft, nontender, and nondistended. There is no rebound, voluntary guarding, or rigidity. : Deferred. No [place]. EXTREMITIES: Left lower extremity swelling No clubbing. Good capillary refill. SKIN: No skin breakdown. Vital Signs (last 8hr) Date Time Temp Pulse Resp B/P (MAP) Pulse Ox O2 Delivery O2 Flow Rate FiO2 06/21/25 11:35 97.5 70 16 105/70 98 Room Air 06/21/25 07:59 97.9 62 16 101/68 96 Room Air LABS: Laboratory: Test 06/21/25 09:04 06/21/25 03:32 06/20/25 18:07 06/20/25 04:34 Range/Units Activated Partial Thromboplast Time 72.2 H 26.3-35.5 SEC White Blood Count 7.7 4.8-10.8 K/uL Red Blood Count 2.88 L 4.00-5.50 MIL/uL Hemoglobin 9.0 L 12.0-16.0 g/dL Hematocrit 26.4 L 36-48 % Mean Corpuscular Volume 91.7 79-99 fL Mean Corpuscular Hemoglobin 31.3 27.0-33.0 pg Mean Corpuscular Hemoglobin Concent 34.1 32.0-36.0 g/dL Red Cell Distribution Width 13.4 11.0-15.5 % Platelet Count 311 130-400 K/uL Mean Platelet Volume 9.3 7.5-10.5 fL Immature Granulocyte % (Auto) 5.7 H 0-1 % Neutrophils (%) (Auto) 57.4 40.0-77.0 % Lymphocytes (%) (Auto) 26.7 21.0-51.0 % Monocytes (%) (Auto) 9.3 3.0-13.0 % Eosinophils (%) (Auto) 0.5 0.0-8.0 % Basophils (%) (Auto) 0.4 0.0-5.0 % Neutrophils # (Auto) 4.4 1.8-7.7 K/uL Lymphocytes # (Auto) 2.1 1.0-4.8 K/uL Monocytes # (Auto) 0.7 0.1-1.0 K/uL Eosinophils # (Auto) 0.04 0.00-0.70 K/uL Basophils # (Auto) 0.03 0.00-0.20 K/uL Absolute Immature Granulocyte (auto 0.44 0-1 K/uL Nucleated Red Blood Cells 0.0 0.0-0.19 % Sodium Level 143 136-145 mmol/L Potassium Level 3.6 3.5-5.1 mmol/L Chloride Level 106 101-111 mmol/L Carbon Dioxide Level 26 21-32 mmol/L Blood Urea Nitrogen 11 7-18 mg/dL Creatinine 0.6 0.5-1.0 mg/dL Glomerular Filtration Rate Calc 107 >90 mL/min Random Glucose 104 70-105 mg/dL Total Calcium 8.9 8.5-10.1 mg/dL Troponin I High Sensitivity < 4 L 4-50 ng/L Prothrombin Time 11.3 9.6-11.6 SEC Prothromb Time International Ratio 1.08 0.85-1.15 Total Bilirubin 0.9 0.2-1.0 mg/dL Aspartate Amino Transf (AST/SGOT) 21 10-37 U/L Alanine Aminotransferase (ALT/SGPT) 29 12-78 U/L Alkaline Phosphatase 88 50-136 U/L Total Protein 6.8 6.0-8.3 g/dL Albumin 3.5 3.5-5.0 g/dL Current Medications Medications (Trade) Dose Ordered Sig/Juan Route PRN Reason Start Time Stop Time Status Last Admin Dose Admin Acetaminophen (TYLenol 325MG TAB) 650 mg Q4H PRN PO MILD PAIN (1-3) 06/20/25 06:30 07/20/25 06:29 Acetaminophen (TYLenol 325MG TAB) 650 mg Q6H PRN PO TEMPERATURE GREATER THAN 101.5 06/20/25 06:30 07/20/25 06:29 06/20/25 20:33 650 MG Famotidine (Pepcid 20mg Tab) 20 mg DAILY PO 06/20/25 09:00 07/20/25 08:59 06/21/25 09:52 20 MG Heparin Sodium (Porcine) (HEParin 5,000 UNIT VIAL) *calculation based on ACTUAL B... AD PRN IV HEPARIN PROTOCOL 06/20/25 05:00 07/20/25 04:59 06/20/25 04:59 4,000 UNIT Heparin Sodium/ Dextrose 250 ml @ 0 mls/hr Q6H IV 06/20/25 05:00 07/20/25 04:59 06/21/25 11:35 0 MLS/HR Lactated Ringer's (Lactated Ringers 1000ml) 1,000 ml BOLUS STAT IV 06/20/25 03:46 06/20/25 03:59 DC 06/20/25 04:30 1,000 ML Ondansetron HCl (zoFRAN 4MG INJ) 4 mg Q6H PRN IV NAUSEA/VOMITING 06/20/25 06:30 07/20/25 06:29 DIAGNOSTICS / RADIOLOGY: [ ] ASSESSMENT: -Acute deep venous thrombosis(DVT) of left popliteal vein POA -History of pulmonary embolism with recent embolectomy at [facility] POA -Limited access to prescribed medication due to financial constraints POA -Essential hypertension -History of nephrolithiasis and prior nephrostomy -Recent acute respiratory failure requiring intubation -Overweight(BMI 26.1 ) -Iodine allergy PLAN: Acute deep venous thrombosis(DVT) of left popliteal vein POA -patient was recently admitted to [facility], diagnosed with pulmonary embolism and embolectomy was done. -venous Doppler of lower extremity showed partially occluding DVT with a left popliteal vein -lab showed PT 11.3, INR 1.08, APTT 23.0 on 06/20/2025. -continue heparin drip , we will trend PT INR Limited access to prescribed medication due to financial constraints POA -patient had embolectomy done recently and was discharged home on Eliquis -patient was not taking medication as her insurance was not covering the medication -case management on board, will evaluate and assist with social needs. GI prophylaxis with Pepcid 20 mg p.o. daily Zofran 4 mg q.6 IV PRN for nausea or vomiting Acetaminophen 650 mg q.4 PRN p.o. for mild pain Acetaminophen 650 mg q.6 PO prn if temperature > 101.5 ATTESTATION BY PHYSICIAN I have seen and examined the patient. I reviewed the documentation, medical decision making, and treatment plan as noted by the resident above. I agree with the findings and plan of care. Perez Harvey IV, MD, ADIL SHAH QUADRI MD Jun 21, 2025 13:30
[2025-06-22 04:18] VITALS: BP 104/67; PULSE 66; RESP 18; TEMP 98
--- NOTE | 2025-06-22 04:38 | HMCSR ---
APPROVED REPORT EXAM: LIMITED Two-dimensional and M-mode echocardiogram. Study Details: 05/10/25 previous echo INDICATION ICD: Chest Pain 2D Dimensions RVDd3.4 cmLVEF(%)55.1 (>50%)LVED Vol(simp.)78.0 mL IVSd0.7 (0.7-1.1cm)FS(%)28 %LVES Vol(simp.)36.0 mL LVDd4.2 (3.8-5.6cm)LA (2D)3.1 (1.6-4.0cm)LVEF(%, simp.)54 % PWd1.1 (0.7-1.1cm)Ao Root(2D)2.8 (2.0-3.7cm)LA ESV INDEX (BP)24.43 mL/m2 LVDs3.0 (2.5-4.0cm) Deformation Strain Apical 4-16.5 % Apical 2-18.3 % Apical 3-15.9 % Global Strain-16.9 % Left Ventricle The left ventricle is normal size. Normal wall motion There is normal left ventricular wall thickness . LVEF is 50-55%. The left ventricular diastolic function is normal. Right Ventricle The right ventricle is normal size. Atria The left atrium size is normal. The right atrium size is normal. Aortic Valve The aortic valve is normal in structure. Mitral Valve The mitral valve is normal in structure. Tricuspid Valve The tricuspid valve is normal in structure. Pulmonic Valve The pulmonary valve is normal in structure. Great Vessels The aortic root is normal in size. Pericardium There is no pericardial effusion. Conclusion LVEF is 50-55%. The left ventricular diastolic function is normal. There is normal left ventricular wall thickness. Normal wall motion There is no pericardial effusion. Normal pulmonary pressures Study quality was adequate
[2025-06-22 06:48] LABS: CREATININE 0.6 mg/dL (0.5-1.0); GLOMERULAR FILTR. RATE CALC 107.0 mL/min (>90); GLUCOSE,RANDOM 95.0 mg/dL (70-105); SODIUM SERUM 142.0 mmol/L (136-145); UREA NITROGEN, BLOOD 9.0 mg/dL (7-18)
[2025-06-22 06:50] LABS: INR 0.97 (0.85-1.15)
[2025-06-22 07:07] LABS: NUCLEATED RED BLOOD CELLS 0.3 % (0.0-0.19); PLATELET COUNT (AUTO) 241.0 K/uL (130-400); RED BLOOD CELL COUNT(AUTO) 2.95 MIL/uL (4.00-5.50); RED CELL DISTRIBUTION WIDTH 13.6 % (11.0-15.5); WHITE BLOOD COUNT (AUTO) 7.3 K/uL (4.8-10.8)
[2025-06-22 07:50] VITALS: BP 97/56; PULSE 72; RESP 20; TEMP 98.7
--- NOTE | 2025-06-22 10:04 | PN ---
[facility] PROGRESS NOTE Date of Service: Jun 22, 2025 Time of Service: 10:04 SUBJECTIVE: 55-year-old female with past medical history of asthma, nephrolithiasis who presented to hospital secondary to left lower extremity pain and swelling, pain in right shoulder, chest pain. Patient states that she recently got admitted to [facility] on 06/12/2025 due to shortness of breath, chest pain. Patient got diagnosed with pulmonary embolism and embolectomy done at [facility] and they discharged the patient with oral anticoagulants on 06/19/2025. Patient says that her insurance did not cover the medication apixaban so she did not take it. She says that she started having severe pain in left lower extremity yesterday night. She went to ED in [facility] but because of very long wait time she came to [facility] for further evaluation. Patient says that she was admitted to this facility on 05/09/2025 due to chest pain ,sore throat and she got diagnosed with epiglottitis. Her hospital course got complicated by acute hypoxic respiratory failure leading to intubation. She got discharged on 05/24/2025. On arrival to ED vitals temperature 96.8, blood pressure 122/83, heart rate 96, respiratory rate 20, saturating 97 at room air. On Examination lower extremity was swollen, tender. EKG showed sinus rhythm, troponin I was within normal range. Doppler of left lower extremity showed partially occluding deep venous thrombosis within the left popliteal vein. Patient received ketorolac 30 mg IV once, Norflex 60 mg IV once, LR 100 mL bolus stat. Patient was started on heparin drip and Cardiology consult requested. Patient will be admitted to P[facility]U for further evaluation. 06/21/2025: Patient was seen and evaluated bedside in room 224. Case discussed with RN, no acute overnight events. Patient is currently on heparin drip for deep venous thrombosis of left popliteal vein. Patient had recent embolectomy for pulmonary embolism at [facility]. Pending echo report. Cardiology on board, we will follow up with the recommendations. 06/22/2025: Patient was seen and evaluated bedside in room 224. Case discussed with RN, no acute overnight events. Patient is still complaining of pain in left calf, epigastric pain. Patient is currently on heparin drip. Dr. Petersen recommended the patient warfarin therapy as it is cost effective as compared to Eliquis. Dr. Harvey had long discussion with the patient explaining risks and benefits of both Eliquis and warfarin therapy. We explained the patient that we need to stop heparin before starting warfarin. After 30 minutes patient said that she will consider warfarin therapy and she will discuss with her daughter. So heparin drip was stopped and Lovenox 63 mg b.i.d. was ordered for anticoagulation. After 45 minutes patient's daughter spoke with Dr. Cook and said they want to continue with Eliquis and making arrangements to get the medication when patient gets discharged. So Lovenox was stopped immediately and patient was started back on heparin drip. Case management provided the patient with Eliquis coupon for 30 days. Cardiology, pulmonology, Hematology on board we will follow up with the recommendations. REVIEW OF SYSTEMS CONSTITUTIONAL: Denies fevers, chills, or night sweats. No unintentional weight loss reported. NEUROLOGICAL: Denies headache, amaurosis fugax, motor weakness, sensory deficit, vertigo/spinning sensation, gait abnormalities, or tremors. ENT: No hearing loss, otalgia, otorrhea, rhinitis, rhinorrhea, hoarseness, or sore throat. CARDIOVASCULAR: Denies any exertional angina, dyspnea on exertion, orthopnea, paroxysmal nocturnal dyspnea, palpitations, life-threatening arrhythmias, c laudication. PULMONARY: Denies any shortness of breath, cough, phlegm/sputum, hemoptysis, pleuritic chest pain. SLEEP: Denies morning headaches, daytime somnolence or napping. Denies difficulty falling asleep, staying asleep, waking from sleep. Denies knowledge of snoring. GASTROINTESTINAL: Denies any type of dysphagia to either liquids or solids. Denies nausea, vomiting, pyrosis, early satiety, abdominal pain, diarrhea, cons tipation, or changes in stool consistency or caliber. Denies coffee-ground emesis, hematemesis, hematochezia, or melanotic stools. GENITOURINARY: Denies frequency, urgency, nocturia, hematuria or incontinence (Storage/Irritative symptoms.) Low urinary stream, straining to void, urinary intermittency or hesitancy, splitting of the voiding stream, terminal dribbling. ENDOCRINOLOGIC: Denies polyuria, polydipsia, polyphagia or heat/cold intolerances. HEMATOLOGIC: Denies thrombophilia/previous clots, or coagulopathy/bleeding disorders. ONCOLOGIC: Denies personal history of malignancy. DERMATOLOGIC: Denies rashes or pruritus. PSYCHIATRIC: Denies any suicidal or homicidal ideation. Denies hallucinations. PHYSICAL EXAM GENERAL APPEARANCE: The patient is awake, alert, and oriented, in no acute cardiopulmonary distress. NEUROLOGICAL: Cranial nerves II-XII grossly intact. Motor is 5/5 in bilateral upper and lower extremities proximal to distal. No sensory deficits. HEENT: Face is symmetric. Pupils are equal and reactive. Extraocular movements are intact. NECK: Supple. No JVD. No thyromegaly. No submental, submandibular, pre- /postauricular, occipital or supraclavicular lymphadenopathy. CHEST: Normal chest expansion. No Telemetry. LUNGS: Absence of any rales, rhonchi or any wheezing. CARDIOVASCULAR: Regular. S1 and S2 normal. No appreciable rubs, murmurs or gallops. ABDOMEN: Soft, nontender, and nondistended. There is no rebound, voluntary guarding, or rigidity. : Deferred. No [place]. EXTREMITIES: Left lower extremity swelling No clubbing. Good capillary refill. SKIN: No skin breakdown. Vital Signs (last 8hr) Date Time Temp Pulse Resp B/P (MAP) Pulse Ox O2 Delivery O2 Flow Rate FiO2 06/22/25 07:50 98.8 72 20 97/56 98 Room Air 06/22/25 04:18 98.1 66 18 104/67 96 Room Air LABS: Laboratory: Test 06/22/25 06:11 06/21/25 23:31 06/21/25 03:32 06/20/25 18:07 Range/Units White Blood Count 7.3 4.8-10.8 K/uL Red Blood Count 2.95 L 4.00-5.50 MIL/uL Hemoglobin 9.2 L 12.0-16.0 g/dL Hematocrit 27.4 L 36-48 % Mean Corpuscular Volume 92.9 79-99 fL Mean Corpuscular Hemoglobin 31.2 27.0-33.0 pg Mean Corpuscular Hemoglobin Concent 33.6 32.0-36.0 g/dL Red Cell Distribution Width 13.6 11.0-15.5 % Platelet Count 241 130-400 K/uL Mean Platelet Volume 11.2 H 7.5-10.5 fL Nucleated Red Blood Cells 0.3 H 0.0-0.19 % Prothrombin Time 10.3 9.6-11.6 SEC Prothromb Time International Ratio 0.97 0.85-1.15 Activated Partial Thromboplast Time 48.4 H 26.3-35.5 SEC Sodium Level 142 136-145 mmol/L Potassium Level 3.6 3.5-5.1 mmol/L Chloride Level 107 101-111 mmol/L Carbon Dioxide Level 29 21-32 mmol/L Blood Urea Nitrogen 9 7-18 mg/dL Creatinine 0.6 0.5-1.0 mg/dL Glomerular Filtration Rate Calc 107 >90 mL/min Random Glucose 95 70-105 mg/dL Total Calcium 8.7 8.5-10.1 mg/dL Lupus Anticoag PTT Mix/Correction Hexagonal Phospholipid Neutralizat Immature Granulocyte % (Auto) 5.7 H 0-1 % Neutrophils (%) (Auto) 57.4 40.0-77.0 % Lymphocytes (%) (Auto) 26.7 21.0-51.0 % Monocytes (%) (Auto) 9.3 3.0-13.0 % Eosinophils (%) (Auto) 0.5 0.0-8.0 % Basophils (%) (Auto) 0.4 0.0-5.0 % Neutrophils # (Auto) 4.4 1.8-7.7 K/uL Lymphocytes # (Auto) 2.1 1.0-4.8 K/uL Monocytes # (Auto) 0.7 0.1-1.0 K/uL Eosinophils # (Auto) 0.04 0.00-0.70 K/uL Basophils # (Auto) 0.03 0.00-0.20 K/uL Absolute Immature Granulocyte (auto 0.44 0-1 K/uL Troponin I High Sensitivity < 4 L 4-50 ng/L Current Medications Medications (Trade) Dose Ordered Sig/Juan Route PRN Reason Start Time Stop Time Status Last Admin Dose Admin Acetaminophen (TYLenol 325MG TAB) 650 mg Q4H PRN PO MILD PAIN (1-3) 06/20/25 06:30 07/20/25 06:29 06/21/25 23:00 650 MG Acetaminophen (TYLenol 325MG TAB) 650 mg Q6H PRN PO TEMPERATURE GREATER THAN 101.5 06/20/25 06:30 07/20/25 06:29 06/20/25 20:33 650 MG Docusate Sodium (COLace 100MG CAP) 100 mg BID PRN PO CONSTIPATION 06/22/25 10:00 07/22/25 09:59 Famotidine (Pepcid 20mg Tab) 20 mg DAILY PO 06/20/25 09:00 07/20/25 08:59 06/21/25 09:52 20 MG Heparin Sodium (Porcine) (HEParin 5,000 UNIT VIAL) *calculation based on ACTUAL B... AD PRN IV HEPARIN PROTOCOL 06/20/25 05:00 07/20/25 04:59 06/20/25 04:59 4,000 UNIT Heparin Sodium/ Dextrose 250 ml @ 0 mls/hr Q6H IV 06/20/25 05:00 07/20/25 04:59 06/21/25 11:35 0 MLS/HR Lactated Ringer's (Lactated Ringers 1000ml) 1,000 ml BOLUS STAT IV 06/20/25 03:46 06/20/25 03:59 DC 06/20/25 04:30 1,000 ML Ondansetron HCl (zoFRAN 4MG INJ) 4 mg Q6H PRN IV NAUSEA/VOMITING 06/20/25 06:30 07/20/25 06:29 Tramadol HCl (UltRAM) 100 mg Q6H PRN PO MODERATE PAIN (4-6) 06/22/25 10:00 06/27/25 09:59 DIAGNOSTICS / RADIOLOGY: [ ] [place] [id number] [place] [id number] IMAGING REPORT Signed PATIENT: FRANCESCO BARNARD MR#: [id number] : 1970 SEX: F AGE: 55 LOCATION: 2DH ORDER 1 STATUS: ADM IN REPORT#: [id number] SERVICE 0 REASON: CP ORDERING PHYSICIAN: TANO SEAY PROCEDURE: ECHO FU LD - ECHO 2-D F/U-LTD APPROVED REPORT EXAM: LIMITED Two-dimensional and M-mode echocardiogram. Study Details: 05/10/25 previous echo INDICATION ICD: Chest Pain 2D Dimensions RVDd 3.4 cm LVEF(%) 55.1 (>50%) LVED Vol(simp.) 78.0 mL IVSd 0.7 (0.7-1.1cm) FS(%) 28 % LVES Vol(simp.) 36.0 mL LVDd 4.2 (3.8-5.6cm) LA (2D) 3.1 (1.6-4.0cm) LVEF(%, simp.) 54 % PWd 1.1 (0.7-1.1cm) Ao Root(2D) 2.8 (2.0-3.7cm) LA ESV INDEX (BP) 24.43 mL/m2 LVDs 3.0 (2.5-4.0cm) Deformation Strain Apical 4 -16.5 % Apical 2 -18.3 % Apical 3 -15.9 % Global Strain -16.9 % Left Ventricle The left ventricle is normal size. Normal wall motion There is normal left ventricular wall thickness. LVEF is 50-55%. The left ventricular diastolic function is normal. Right Ventricle The right ventricle is normal size. Atria The left atrium size is normal. The right atrium size is normal. Aortic Valve The aortic valve is normal in structure. Mitral Valve The mitral valve is normal in structure. Tricuspid Valve The tricuspid valve is normal in structure. Pulmonic Valve The pulmonary valve is normal in structure. Great Vessels The aortic root is normal in size. Pericardium There is no pericardial effusion. Conclusion LVEF is 50-55%. The left ventricular diastolic function is normal. There is normal left ventricular wall thickness. Normal wall motion There is no pericardial effusion. Normal pulmonary pressures Study quality was adequate DICTATED BY: KRISHAN BUITRAGO MD DATE: 06/20/25 0922 ELECTRONICALLY SIGNED BY: KRISHAN BUITRAGO MD DATE: 06/22/25 8578 ASSESSMENT: -Acute deep venous thrombosis(DVT) of left popliteal vein POA -History of pulmonary embolism with recent embolectomy at [facility] POA -Limited access to prescribed medication due to financial constraints POA -Essential hypertension -History of nephrolithiasis and prior nephrostomy -Recent acute respiratory failure requiring intubation -Overweight(BMI 26.1 ) -Iodine allergy PLAN: Acute deep venous thrombosis(DVT) of left popliteal vein POA -patient was recently admitted to [facility], diagnosed with pulmonary embolism and embolectomy was done. -venous Doppler of lower extremity showed partially occluding DVT with a left popliteal vein -lab showed PT 11.3, INR 1.08, APTT 23.0 on 06/20/2025. -continue heparin drip , we will trend PT INR Limited access to prescribed medication due to financial constraints POA -patient had embolectomy done recently and was discharged home on Eliquis -patient was not taking medication as her insurance was not covering the med ication -case management on board, will evaluate and assist with social needs. -case management provided the patient with Eliquis coupon for 30 days. GI prophylaxis with Pepcid 20 mg p.o. daily Zofran 4 mg q.6 IV PRN for nausea or vomiting Acetaminophen 650 mg q.4 PRN p.o. for mild pain Tramadol HCl 100 mg q.6 PRN p.o. for moderate pain Acetaminophen 650 mg q.6 PO prn if temperature > 101.5 ATTESTATION BY PHYSICIAN I have seen and examined the patient. I reviewed the documentation, medical decision making, and treatment plan as noted by the resident above. I agree with the findings and plan of care. Perez Harvey IV, MD, ADIL SHAH QUADRI MD Jun 22, 2025 10:04
--- NOTE | 2025-06-22 11:00 | PN ---
[facility] PROGRESS NOTE Date Patient Seen: Jun 22, 2025 Time of Visit: 11:00 Supervising Physician: Sander Riddle MD Primary Care Physician: Gee Paige Outpatient Specialists: [ ] Inpatient Consults: Dr Alessandra RONDON Attending: Dr Dixon PROBLEM LIST: Acute deep venous thrombosis(DVT) of left popliteal vein POA History of pulmonary embolism with recent embolectomy at [facility] POA Hypercoagulable state POA not on her Rxd Eliquis 2/2 financial constraints POA Essential hypertension History of nephrolithiasis and prior nephrostomy Recent acute respiratory failure requiring intubation Overweight(BMI 26.1 ) Iodine allergy INTERVAL HISTORY: Pt is awake alert and oriented. she continues with heparin gtt. Per primary team will tentative plans to start pt on eliquis and DC heparin gtt as this was recommended per cardiology per primary. digital marketing manager to provide coupon for medication eliquis if needed. Per pt also reports her daughter has been able to obtain medication eliquis at a [place] from pharmacy in [place]. Awaiting Hematology recommendations for now. She denies chest pain, reports occasional leg pain. No pain at this time. REVIEW OF SYSTEMS: General: No malaise or fever. Neurological: No fainting episodes or seizures. HEENT: No nasal congestion or nasal secretion. Respiratory: No cough, shortness of breath, or wheezing Cardiac: No chest pain or palpitations. Gastrointestinal: No vomiting or diarrhea. Genitourinary: No dysuria hematuria. Skin: No rashes or lesions. Hematological: No bruises or bleeding. Musculoskeletal: No joint pains or arthralgias. Psychiatric: No depression or panic attacks. PHYSICAL EXAM: GENERAL: alert, weak, awake oriented x 3 HEENT: EOMI, Sclera non icteric, moist mucosa NECK: Supple, no JVD, trachea midline LUNGS: Diminished breath sounds bilaterally. No wheezes HEART: Regular rate and rhythm. Normal S1 and S2, without murmurs ABD: Abdomen soft, nontender. Bowel sounds present EXT: No clubbing cyanosis or edema, reports some tenderness to left great toe. Bilateral lower extremity pedal pulse present. No discoloration noted to lower extremities. NEURO: Alert and oriented to person, follows commands Vital Signs (last 8hr) Date Time Temp Pulse Resp B/P (MAP) Pulse Ox O2 Delivery O2 Flow Rate FiO2 06/22/25 07:50 98.8 72 20 97/56 98 Room Air 06/22/25 04:18 98.1 66 18 104/67 96 Room Air LABS: Hematology Labs: Test 06/22/25 06:11 06/21/25 03:32 Range/Units White Blood Count 7.3 4.8-10.8 K/uL Red Blood Count 2.95 L 4.00-5.50 MIL/uL Hemoglobin 9.2 L 12.0-16.0 g/dL Hematocrit 27.4 L 36-48 % Mean Corpuscular Volume 92.9 79-99 fL Mean Corpuscular Hemoglobin 31.2 27.0-33.0 pg Mean Corpuscular Hemoglobin Concent 33.6 32.0-36.0 g/dL Red Cell Distribution Width 13.6 11.0-15.5 % Platelet Count 241 130-400 K/uL Mean Platelet Volume 11.2 H 7.5-10.5 fL Nucleated Red Blood Cells 0.3 H 0.0-0.19 % Immature Granulocyte % (Auto) 5.7 H 0-1 % Neutrophils (%) (Auto) 57.4 40.0-77.0 % Lymphocytes (%) (Auto) 26.7 21.0-51.0 % Monocytes (%) (Auto) 9.3 3.0-13.0 % Eosinophils (%) (Auto) 0.5 0.0-8.0 % Basophils (%) (Auto) 0.4 0.0-5.0 % Neutrophils # (Auto) 4.4 1.8-7.7 K/uL Lymphocytes # (Auto) 2.1 1.0-4.8 K/uL Monocytes # (Auto) 0.7 0.1-1.0 K/uL Eosinophils # (Auto) 0.04 0.00-0.70 K/uL Basophils # (Auto) 0.03 0.00-0.20 K/uL Absolute Immature Granulocyte (auto 0.44 0-1 K/uL Chemistry Labs: Test 06/22/25 06:11 06/20/25 18:07 Range/Units Sodium Level 142 136-145 mmol/L Potassium Level 3.6 3.5-5.1 mmol/L Chloride Level 107 101-111 mmol/L Carbon Dioxide Level 29 21-32 mmol/L Blood Urea Nitrogen 9 7-18 mg/dL Creatinine 0.6 0.5-1.0 mg/dL Glomerular Filtration Rate Calc 107 >90 mL/min Random Glucose 95 70-105 mg/dL Total Calcium 8.7 8.5-10.1 mg/dL Troponin I High Sensitivity < 4 L 4-50 ng/L Coagulation Labs: Test 06/22/25 06:11 06/21/25 23:31 Range/Units Prothrombin Time 10.3 9.6-11.6 SEC Prothromb Time International Ratio 0.97 0.85-1.15 Activated Partial Thromboplast Time 48.4 H 26.3-35.5 SEC Lupus Anticoag PTT Mix/Correction Hexagonal Phospholipid Neutralizat DIAGNOSTICS / RADIOLOGY RESULTS: [ [facility] [address] [place] [id number] IMAGING REPORT Signed PATIENT: FRANCESCO BARNARD MR#: [id number] : 1970 SEX: F AGE: 55 LOCATION: [facility] ORDER 1 STATUS: ADM IN REPORT#: [id number] SERVICE 0 REASON: CP ORDERING PHYSICIAN: TANO SEAY PROCEDURE: ECHO FU LD - ECHO 2-D F/U-LTD APPROVED REPORT EXAM: LIMITED Two-dimensional and M-mode echocardiogram. Study Details: 05/10/25 previous echo INDICATION ICD: Chest Pain 2D Dimensions RVDd 3.4 cm LVEF(%) 55.1 (>50%) LVED Vol(simp.) 78.0 mL IVSd 0.7 (0.7-1.1cm) FS(%) 28 % LVES Vol(simp.) 36.0 mL LVDd 4.2 (3.8-5.6cm) LA (2D) 3.1 (1.6-4.0cm) LVEF(%, simp.) 54 % PWd 1.1 (0.7-1.1cm) Ao Root(2D) 2.8 (2.0-3.7cm) LA ESV INDEX (BP) 24.43 mL/m2 LVDs 3.0 (2.5-4.0cm) Deformation Strain Apical 4 -16.5 % Apical 2 -18.3 % Apical 3 -15.9 % Global Strain -16.9 % Left Ventricle The left ventricle is normal size. Normal wall motion There is normal left ventricular wall thickness. LVEF is 50-55%. The left ventricular diastolic function is normal. Right Ventricle The right ventricle is normal size. Atria The left atrium size is normal. The right atrium size is normal. Aortic Valve The aortic valve is normal in structure. Mitral Valve The mitral valve is normal in structure. Tricuspid Valve The tricuspid valve is normal in structure. Pulmonic Valve The pulmonary valve is normal in structure. Great Vessels The aortic root is normal in size. Pericardium There is no pericardial effusion. Conclusion LVEF is 50-55%. The left ventricular diastolic function is normal. There is normal left ventricular wall thickness. Normal wall motion There is no pericardial effusion. Normal pulmonary pressures Study quality was adequate DICTATED BY: KRISHAN BUITRAGO MD DATE: 06/20/25 09 ELECTRONICALLY SIGNED BY: KRISHAN BUITRAGO MD DATE: 06/22/25 0438 ] Plan: Follow cardiology recs Pt conitnues on heparin gtt this morning , monitor PTT monitor fo s/s of bleeding hypercoagulable state work up follow hematology recommendations maintain o2 sats above 92% dispo per primary ATTESTATION BY PHYSICIAN The patient has been seen and evaluated, the case has been discussed with the WAD IMPREGNATOR, I agree with the clinical findings and plan of care. Sander Riddle MD, [facility] Jun 22, 2025 11:00
--- NOTE | 2025-06-22 11:00 | NUR ---
DR. ROGERS HERE AND SPOKE WITH PATIENT AND ,DR. STONE, CAME INTO ROOM AND DR. ROGERS SPOKE WITH DR. YANG AND RESIDENTS CONCERNING TREATMENT AND PLAN OF CARE FOR PATIENT. DR. ROGERS RECOMMENDED COUMADIN 5MG TO START AND ADVISED PT THAT SHE WOULD HAVE TO HAVE LABS EVERY 3 TO 4 WEEKS IN ORDER FOR HER TO BE ON THE CORRECT DOSAGE ACCORDING TO HER LAB RESULTS. PT WAS INTERPRETED IN [place] THE CONVERSATION BY RENU ADAMS RN NURSE CARING FOR PATIENT. PT WAS ALLOWED TO ASK QUESTIONS AND SHE APPEARED TO UNDERSTAND THE REASON FOR HER BEING ON COUMADIN (WHICH WAS LESS EXPENSIVE THAN ELIQUIS). PT VERBALIZED UNDERSTANDING THE NEED FOR ANTICOAGULATION AND WAS ADVISED FOR THE HEPARIN TO BE STOPPED IF SHE WOULD BE STARTED ON LOVENOX OR COUMADIN. PT DID NOT QUESTION OR HAVE ANY CONCERNS AT THE TIME. DR. CRUZ THEN SPOKE TO PT IN [place] AND DR. ROGERS AND NURSING STAFF LEFT THE ROOM.
[2025-06-22 12:00] VITALS: BP 94/59; PULSE 82; RESP 20; TEMP 97.9
[2025-06-22 15:38] LABS: IMMATURE GRANULOCYTE ABSOLUTE 0.55 K/uL (0-1); NUCLEATED RED BLOOD CELLS 0.0 % (0.0-0.19); PLATELET COUNT (AUTO) 159 K/uL (130-400); RED BLOOD CELL COUNT(AUTO) 3.05 MIL/uL (4.00-5.50); RED CELL DISTRIBUTION WIDTH 13.5 % (11.0-15.5); WHITE BLOOD COUNT (AUTO) 8.4 K/uL (4.8-10.8)
[2025-06-22 16:00] VITALS: BP 109/69; PULSE 76; RESP 20; TEMP 98.7
[2025-06-22] MEDS ORDERED: ENOXAPARIN SODIUM 60 MG/0.6 ML SQ ONE (16:00)
--- NOTE | 2025-06-22 16:16 | CONS ---
EMORY SOLIS MD 06/22/25 1616: CONSULT REFERRING PHYSICIAN: DIAZ FOX REASON FOR CONSULT: DVT HISTORY HPI: 55 year old female with past medical history of asthma , nephrolithiasis, epiglottitis s/p mechanical ventilation (May 2025), recent DVT , recent pulmonary embolism s/p embolectomy ([facility] -May 2025), non compliant with Eliquis due to financial constraints presented to ER with complaints of chest pain, left lower extremity pain and swelling. Doppler of left lower extremity showed partially occluding deep venous thrombosis within the left popliteal vein. Hematology is consulted for the same . Patient is seen and evaluated at the bedside. Patient is being treated with Heparin -on protocol . She complaints of right upper quadrant pain and left lower extremity pain. Pain intensity 7/10 . Patient is able to walk and denies shortness of breath , rashes , any signs or symptoms of bleeding . PMH: Asthma Nephrolithiasis DVT Pulmonary embolism PSH: History of nephrostomy tube placement, history of stent placement SH: Denies any smoking, alcohol, drug use FH: Patient's sister had OR and at 20 years of age . Patients mother and grandmother had OR ALLERGIES: Coded Allergies: iodine (Unverified Allergy, Severe, ANAPHYLAXIS, 01/16/25) Pork/Porcine Containing Products (Unverified Allergy, Unknown, 12/05/24) red dye (Unverified Allergy, Unknown, 05/04/25) CURRENT MEDS: Current Medications Medications (Trade) Dose Ordered Sig/Juan Route PRN Reason Start Time Stop Time Status Last Admin Docusate Sodium (COLace 100MG CAP) 100 mg BID PRN PO CONSTIPATION 06/22/25 10:00 07/22/25 09:59 Tramadol HCl (UltRAM) 100 mg Q6H PRN PO MODERATE PAIN (4-6) 06/22/25 10:00 06/27/25 09:59 Heparin Sodium/ Dextrose 250 ml @ 0 mls/hr Q6H IV 06/22/25 16:00 07/22/25 15:59 UNV REVIEW OF SYSTEMS CONSTITUTIONAL: No FEVER, No SWEATS, No CHILLS, No WEIGHT LOSS HEENT: No JAUNDICE, No SORE THROAT, No SINUS PRESSURE, No VISION CHANGES RESPIRATORY: No COUGH, No CHEST PAIN, No SHORTNESS OF BREATH, No HEMOPTYSIS CARDIOVASCULAR: No PALPATIONS, No DYSPNEA ON EXERTION, No SYNCOPE GASTROINTESTINAL: No NAUSEA, No VOMITING, No DIARRHEA, No DYSPHAGIA, No CONSTIPATION; ABDOMINAL PAIN; No HEMATEMESIS, No HEMATOCHEZIA, No MELENA GENITOURINARY: No DYSURIA, No HEMATURIA HEMATOLOGIC/LYMPHATIC: No EASY BRUISING, No CERVICAL ADENOPATHY, No AXILLARY ADENOPATHY, No INGUINAL ADENOPATHY NEUROLOGICAL: No WEAKNESS-EXTREMETIES, No DIPLOPIA, No NUMBNESS, No TINGLING PHYSICAL EXAM VITALS: Vital Signs Date Time Temp Pulse Resp B/P (MAP) Pulse Ox O2 Delivery O2 Flow Rate FiO2 06/22/25 12:00 97.9 82 20 94/59 99 Room Air 06/21/25 20:00 0 21 GENERAL: ALERT, ORIENTED, APPEARS-NO ACUTE DISTRESS EYES: SCLERAE ANICTERIC, PUPILS EQUAL/REACTIVE, EXTRAOCULAR MUSCLES INTCT ENT/NECK: ORAL MUCOSA W/O LESIONS, OROPHARYNX IS CLEAR, NECK SUPPLE W/O MASSES RESPIRATORY: LUNGS CLEAR-AUSC/PERCUS CARDIOVASCULAR: REGULAR RATE, REGULAR RHYTHM GASTROINTESTINAL: ABDOMEN IS SOFT, TENDER (tender right upper quadrant ) HEMATOLOGY/LYMPHATIC: No CERVICAL ADENOPATHY, No SUPRACLAVICULR ADENOPATHY, No AXILLARY ADENOPATHY, No INGUINAL ADENOPATHY NEUROLOGICAL: No GROSSLY INTACT IMPRESSION Impression 1.Left popliteal vein Deep vein thrombosis 2.Recurrent thrombosis - DVT, PE 3.Anemia with drop in Hemoglobin PLAN Plan 1.Acute Left popliteal Vein DVT with h/o recurrent thromboembolism : Patient with financial constraints for treatment with Eliquis. Patient can be started on Warfarin with target INR 2 to 3 .Warfarin should be continued for 6 months following which thrombophilia screening should be done in warfarin free period to determine the total duration of anticoagulation required for this patient . 2.Patient can be started on Folic acid and vitamin B 12 . WINTER ROGERS MD 06/23/25 0946: PLAN I attest that I was physically present to evaluate the patient and I reviewed and discussed the case with the Resident and agree with the Resident's findings and plans of care as documented above with modifications. Case discussed with resident on the date stated at the beginning of note. Patient was first seen and evaluated by me during this hospitalization. EMORY SLOIS MD Jun 22, 2025 16:16 WINTER ROGERS MD Jun 23, 2025 09:46
[2025-06-22 16:42] LABS: INR 0.98 (0.85-1.15)
[2025-06-22 18:40] VITALS: BP 98/65; PULSE 79; TEMP 97.6
--- NOTE | 2025-06-22 18:40 | NUR ---
Patient arrival Patient arrived to 3rd floor room 308 via hospital bed. Patient oriented to room. Vitals assessed. Patient connected to and running a heparin drip. Patient left laying down with bed in lock and low position and bed alarm armed. Patient in no acute distress.
[2025-06-22 20:00] VITALS: BP 115/76; PULSE 82; RESP 20; TEMP 98; O2SAT 97
--- NOTE | 2025-06-22 21:58 | PN ---
CARDIOLOGY Reason for consult: DVT, PE HPI/story at presentation: This is a pleasant 55-year-old female with past medical history as below presents for lower extremity swelling, was recently discharged from [facility] with pulm embolism s/p thrombectomy. Was not taking Eliquis at home Past medical history: See below Allergies, Meds See chart Review of systems Review of Systems Constitutional: Negative for chills and fever. HENT: Negative for ear discharge and ear pain. Eyes: Negative for photophobia and discharge. Respiratory: Negative for cough, sputum production and stridor. Cardiovascular: Negative for chest pain and palpitations. Gastrointestinal: Negative for diarrhea and vomiting. Genitourinary: Negative for frequency. Musculoskeletal: Negative for myalgias. Skin: Negative for rash. Neurological: Negative for focal weakness and seizures. Endo/Heme/Allergies: Negative for polydipsia. Psychiatric/Behavioral: Negative for hallucinations. 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 Echocardiogram ordered and pending. Seen and examined 06/20/2025 at around 8 PM. 06/22/2025 primary team/case management working on getting patient Eliquis. Patient is also considering Eliquis from [place]. Discussed implications. Otherwise, doing well. As above, recent thrombectomy. Seen and examined 06/22/2025 at around 2100 ATTESTATION I was involved substantially in the care of this patient Number and complexity of problems addressed: 1 acute illness with systemic features Amount and or complexity of data Review of prior external note(s) from each unique source: 2+ Ordering of each unique test : 0 Review of the result(s) of each unique test: 2+ Assessment requiring an independent historian(s): No Independent interpretation of test performed by another MD/QHCP/appropriate source (not separately reported) : No Discussion of management or test interpretation with external MD/QHCP/appropriate source (not separately reported) : No Risk status (cardiac, billing related): Moderate Vitals/Labs Vital Signs Date Time Temp Pulse Resp B/P (MAP) Pulse Ox O2 Delivery O2 Flow Rate FiO2 06/22/25 20:00 98.1 82 20 115/76 98 Room Air 06/22/25 18:40 21 06/21/25 20:00 0 Laboratory Tests 06/22/25 06:11 06/22/25 15:32 Medications Current Medications Lactated Ringer's 1,000 ml BOLUS STAT IV Last administered on 06/20/25at 04:30; Start 06/20/25 at 03:46; Stop 06/20/25 at 03:59; Status DC Ketorolac Tromethamine 30 mg ONCE ONCE IVP Last administered on 06/20/25at 04:26; Start 06/20/25 at 04:00; Stop 06/20/25 at 04:01; Status DC Orphenadrine Citrate 60 mg ONCE ONCE IVP Last administered on 06/20/25at 04:25; Start 06/20/25 at 04:00; Stop 06/20/25 at 04:01; Status DC Heparin Sodium (Porcine) *calculation based on ACTUAL B... AD PRN IV Last administered on 06/20/25at 04:59; Start 06/20/25 at 05:00; Stop 06/22/25 at 14:04; Status DC Heparin Sodium/ Dextrose 250 ml @ 0 mls/hr Q6H IV Last administered on 06/21/25at 11:35; Start 06/20/25 at 05:00; Stop 06/22/25 at 14:04; Status DC Acetaminophen 650 mg Q6H PRN PO Last administered on 06/20/25at 20:33; Start 06/20/25 at 06:30; Stop 06/22/25 at 21:48; Status DC Acetaminophen 650 mg Q4H PRN PO Last administered on 06/21/25at 23:00; Start 06/20/25 at 06:30; Stop 06/22/25 at 21:49; Status DC Ondansetron HCl 4 mg Q6H PRN IV; Start 06/20/25 at 06:30; Stop 06/22/25 at 21:49; Status DC Famotidine 20 mg DAILY PO Last administered on 06/22/25at 09:00; Start 06/20/25 at 09:00; Stop 06/22/25 at 21:49; Status DC Tramadol HCl 50 mg ONCE ONCE PO Last administered on 06/20/25at 22:21; Start 06/20/25 at 22:30; Stop 06/20/25 at 22:31; Status DC Tramadol HCl 50 mg ONCE ONCE PO Last administered on 06/21/25at 23:39; Start 06/21/25 at 23:30; Stop 06/21/25 at 23:32; Status DC Docusate Sodium 100 mg BID PRN PO; Start 06/22/25 at 10:00; Stop 06/22/25 at 21:50; Status DC Tramadol HCl 100 mg Q6H PRN PO; Start 06/22/25 at 10:00; Stop 06/22/25 at 21:47; Status DC Enoxaparin Sodium 60 mg BID ONCE SQ; Start 06/22/25 at 16:00; Stop 06/22/25 at 15:11; Status DC Heparin Sodium/ Dextrose 250 ml @ 0 mls/hr Q6H IV; Start 06/22/25 at 16:00; Stop 06/22/25 at 21:50; Status DC Tramadol HCl 100 mg Q6H PRN PO Last administered on 06/22/25at 21:52; Start 06/22/25 at 22:00; Stop 06/27/25 at 21:59 Acetaminophen 650 mg Q6H PRN PO; Start 06/22/25 at 22:00; Stop 07/22/25 at 21:59 Acetaminophen 650 mg Q4H PRN PO; Start 06/22/25 at 22:00; Stop 07/22/25 at 21:59 Ondansetron HCl 4 mg Q6H PRN IV; Start 06/22/25 at 22:00; Stop 07/22/25 at 21:59 Famotidine 20 mg DAILY PO; Start 06/23/25 at 09:00; Stop 07/23/25 at 08:59 Docusate Sodium 100 mg BID PRN PO; Start 06/22/25 at 22:00; Stop 07/22/25 at 21:59 Heparin Sodium/ Dextrose 250 ml @ 0 mls/hr Q6H IV; Start 06/22/25 at 22:00 KRISHAN BUITRAGO MD Jun 22, 2025 21:58
[2025-06-23] VITALS: BP 109/70; PULSE 94; RESP 20; TEMP 98.4
[2025-06-23 00:48] LABS: INR 0.97 (0.85-1.15)
[2025-06-23 04:00] VITALS: BP 105/68; PULSE 78; RESP 20; TEMP 97.9
[2025-06-23 07:21] LABS: INR 1.02 (0.85-1.15)
[2025-06-23 08:00] VITALS: BP 98/63; PULSE 87; RESP 19; TEMP 97.5
[2025-06-23 08:34] VITALS: O2SAT 96
[2025-06-23] MEDS: CYANOCOBALAMIN (VITAMIN B-12) 1,000 MCG TABLET PO SCH (08:35)
[2025-06-23] MEDS: FAMOTIDINE 20MG TAB PO SCH (08:35)
--- NOTE | 2025-06-23 09:47 | PN ---
55 year old female with past medical history of asthma , nephrolithiasis, epiglottitis s/p mechanical ventilation (May 2025), recent DVT , recent pulmonary embolism s/p embolectomy ([facility] -May 2025), non compliant with Eliquis due to financial constraints presented to ER with complaints of chest pain, left lower extremity pain and swelling. Doppler of left lower extremity showed partially occluding deep venous thrombosis within the left popliteal vein. Hematology is consulted for the same . Patient is seen and evaluated at the bedside. Patient is being treated with Heparin -on protocol . She complaints of right upper quadrant pain and left lower extremity pain. Pain intensity 7/10 . Patient is able to walk and denies shortness of breath , rashes , any signs or symptoms of bleeding . REVIEW OF SYSTEMS CONSTITUTIONAL: No FEVER, No SWEATS, No CHILLS, No WEIGHT LOSS HEENT: No JAUNDICE, No SORE THROAT, No SINUS PRESSURE, No VISION CHANGES RESPIRATORY: No COUGH, No CHEST PAIN, No SHORTNESS OF BREATH, No HEMOPTYSIS CARDIOVASCULAR: No PALPATIONS, No DYSPNEA ON EXERTION, No SYNCOPE GASTROINTESTINAL: No NAUSEA, No VOMITING, No DIARRHEA, No DYSPHAGIA, No CONSTIPATION; ABDOMINAL PAIN; No HEMATEMESIS, No HEMATOCHEZIA, No MELENA GENITOURINARY: No DYSURIA, No HEMATURIA HEMATOLOGIC/LYMPHATIC: No EASY BRUISING, No CERVICAL ADENOPATHY, No AXILLARY ADENOPATHY, No INGUINAL ADENOPATHY NEUROLOGICAL: No WEAKNESS-EXTREMETIES, No DIPLOPIA, No NUMBNESS, No TINGLING PHYSICAL EXAM GENERAL: ALERT, ORIENTED, APPEARS-NO ACUTE DISTRESS EYES: SCLERAE ANICTERIC, PUPILS EQUAL/REACTIVE, EXTRAOCULAR MUSCLES INTCT ENT/NECK: ORAL MUCOSA W/O LESIONS, OROPHARYNX IS CLEAR, NECK SUPPLE W/O MASSES RESPIRATORY: LUNGS CLEAR-AUSC/PERCUS CARDIOVASCULAR: REGULAR RATE, REGULAR RHYTHM GASTROINTESTINAL: ABDOMEN IS SOFT, TENDER (tender right upper quadrant ) HEMATOLOGY/LYMPHATIC: No CERVICAL ADENOPATHY, No SUPRACLAVICULR ADENOPATHY, No AXILLARY ADENOPATHY, No INGUINAL ADENOPATHY NEUROLOGICAL: No GROSSLY INTACT IMPRESSION 1.Left popliteal vein Deep vein thrombosis 2.Recurrent thrombosis - DVT, PE 3.Anemia with drop in Hemoglobin PLAN 1.Acute Left popliteal Vein DVT with h/o recurrent thromboembolism : Patient with financial constraints for treatment with Eliquis. Patient can be started on Warfarin with target INR 2 to 3 . I suggest that for this patient to receive Coumadin. The patient is refusing. She want to buy the Eliquis from [place]. This is fine from my point of view. I explained to the patient that she need maybe to get the treatment for the rest of her life. If she could afford it that is fine with me otherwise the best for her again is his Coumadin 2. There was hypersegmented neutrophils. This patient to be started on folic acid 1 mg p.o. daily and vitamin B12 1000 mcg p.o. daily. 3. If this patient discharged to follow-up with me in 4 to 6 weeks Vitals/Labs Vital Signs Date Time Temp Pulse Resp B/P (MAP) Pulse Ox O2 Delivery O2 Flow Rate FiO2 06/23/25 08:00 97.5 87 19 98/63 96 Room Air 06/22/25 20:00 0 21 Laboratory Tests 06/22/25 15:32 Medications Current Medications Lactated Ringer's 1,000 ml BOLUS STAT IV Last administered on 06/20/25at 04:30; Start 06/20/25 at 03:46; Stop 06/20/25 at 03:59; Status DC Ketorolac Tromethamine 30 mg ONCE ONCE IVP Last administered on 06/20/25at 04:26; Start 06/20/25 at 04:00; Stop 06/20/25 at 04:01; Status DC Orphenadrine Citrate 60 mg ONCE ONCE IVP Last administered on 06/20/25at 04:25; Start 06/20/25 at 04:00; Stop 06/20/25 at 04:01; Status DC Heparin Sodium (Porcine) *calculation based on ACTUAL B... AD PRN IV Last administered on 06/20/25at 04:59; Start 06/20/25 at 05:00; Stop 06/22/25 at 14:04; Status DC Heparin Sodium/ Dextrose 250 ml @ 0 mls/hr Q6H IV Last administered on 06/21/25at 11:35; Start 06/20/25 at 05:00; Stop 06/22/25 at 14:04; Status DC Acetaminophen 650 mg Q6H PRN PO Last administered on 06/20/25at 20:33; Start 06/20/25 at 06:30; Stop 06/22/25 at 21:48; Status DC Acetaminophen 650 mg Q4H PRN PO Last administered on 06/21/25at 23:00; Start 06/20/25 at 06:30; Stop 06/22/25 at 21:49; Status DC Ondansetron HCl 4 mg Q6H PRN IV; Start 06/20/25 at 06:30; Stop 06/22/25 at 21:49; Status DC Famotidine 20 mg DAILY PO Last administered on 06/22/25at 09:00; Start 06/20/25 at 09:00; Stop 06/22/25 at 21:49; Status DC Tramadol HCl 50 mg ONCE ONCE PO Last administered on 06/20/25at 22:21; Start 06/20/25 at 22:30; Stop 06/20/25 at 22:31; Status DC Tramadol HCl 50 mg ONCE ONCE PO Last administered on 06/21/25at 23:39; Start 06/21/25 at 23:30; Stop 06/21/25 at 23:32; Status DC Docusate Sodium 100 mg BID PRN PO; Start 06/22/25 at 10:00; Stop 06/22/25 at 21:50; Status DC Tramadol HCl 100 mg Q6H PRN PO; Start 06/22/25 at 10:00; Stop 06/22/25 at 21:47; Status DC Enoxaparin Sodium 60 mg BID ONCE SQ; Start 06/22/25 at 16:00; Stop 06/22/25 at 15:11; Status DC Heparin Sodium/ Dextrose 250 ml @ 0 mls/hr Q6H IV; Start 06/22/25 at 16:00; Stop 06/22/25 at 21:50; Status DC Tramadol HCl 100 mg Q6H PRN PO Last administered on 06/22/25at 21:52; Start 06/22/25 at 22:00; Stop 06/27/25 at 21:59 Acetaminophen 650 mg Q6H PRN PO; Start 06/22/25 at 22:00; Stop 07/22/25 at 21:59 Acetaminophen 650 mg Q4H PRN PO; Start 06/22/25 at 22:00; Stop 07/22/25 at 21:59 Ondansetron HCl 4 mg Q6H PRN IV; Start 06/22/25 at 22:00; Stop 07/22/25 at 21:59 Famotidine 20 mg DAILY PO Last administered on 06/23/25at 08:35; Start 06/23/25 at 09:00; Stop 07/23/25 at 08:59 Docusate Sodium 100 mg BID PRN PO; Start 06/22/25 at 22:00; Stop 07/22/25 at 21:59 Heparin Sodium/ Dextrose 250 ml @ 0 mls/hr Q6H IV Last administered on 06/23/25at 02:01; Start 06/22/25 at 22:00 Vitamin B Complex 1,000 mcg DAILY PO Last administered on 06/23/25at 08:35; Start 06/23/25 at 09:00; Stop 07/23/25 at 08:59 Folic Acid 1 mg DAILY PO Last administered on 06/23/25at 08:34; Start 06/23/25 at 09:00; Stop 07/23/25 at 08:59 WINTER ROGERS MD Jun 23, 2025 09:47
[2025-06-23] MEDS ORDERED: APIX5TAB PO ×3 (10:36→13:45)
--- NOTE | 2025-06-23 10:43 | NUR ---
HEPARIN DRIP DISCONTINUED
[2025-06-23 12:00] VITALS: BP 95/60; PULSE 84; RESP 19; TEMP 98.2
--- NOTE | 2025-06-23 12:49 | PN ---
[facility] PROGRESS NOTE Date of Service: Jun 23, 2025 Time of Service: 12:49 SUBJECTIVE: 55-year-old female with past medical history of asthma, nephrolithiasis who presented to hospital secondary to left lower extremity pain and swelling, pain in right shoulder, chest pain. Patient states that she recently got admitted to [facility] on 06/12/2025 due to shortness of breath, chest pain. Patient got diagnosed with pulmonary embolism and embolectomy done at [facility] and they discharged the patient with oral anticoagulants on 06/19/2025. Patient says that her insurance did not cover the medication apixaban so she did not take it. She says that she started having severe pain in left lower extremity yesterday night. She went to ED in [facility] but because of very long wait time she came to [facility] for further evaluation. Patient says that she was admitted to this facility on 05/09/2025 due to chest pain ,sore throat and she got diagnosed with epiglottitis. Her hospital course got complicated by acute hypoxic respiratory failure leading to intubation. She got discharged on 05/24/2025. On arrival to ED vitals temperature 96.8, blood pressure 122/83, heart rate 96, respiratory rate 20, saturating 97 at room air. On Examination lower extremity was swollen, tender. EKG showed sinus rhythm, troponin I was within normal range. Doppler of left lower extremity showed partially occluding deep venous thrombosis within the left popliteal vein. Patient received ketorolac 30 mg IV once, Norflex 60 mg IV once, LR 100 mL bolus stat. Patient was started on heparin drip and Cardiology consult requested. Patient will be admitted to [facility] for further evaluation. 06/21/2025: Patient was seen and evaluated bedside in room 224. Case discussed with RN, no acute overnight events. Patient is currently on heparin drip for deep venous thrombosis of left popliteal vein. Patient had recent embolectomy for pulmonary embolism at [facility]. Pending echo report. Cardiology on board, we will follow up with the recommendations. 06/22/2025: Patient was seen and evaluated bedside in room 224. Case discussed with RN, no acute overnight events. Patient is still complaining of pain in left calf, epigastric pain. Patient is currently on heparin drip. Dr. Petersen recommended the patient warfarin therapy as it is cost effective as compared to Eliquis. Dr. Harvey had long discussion with the patient explaining risks and benefits of both Eliquis and warfarin therapy. We explained the patient that we need to stop heparin before starting warfarin. After 30 minutes patient said that she will consider warfarin therapy and she will discuss with her daughter. So heparin drip was stopped and Lovenox 63 mg b.i.d. was ordered for anticoagulation. After 45 minutes patient's daughter spoke with Dr. Cook and said they want to continue with Eliquis and making arrangements to get the medication when patient gets discharged. So Lovenox was stopped immediately and patient was started back on heparin drip. Case management provided the patient with Eliquis coupon for 30 days. Cardiology, pulmonology, Hematology on board we will follow up with the recommendations. REVIEW OF SYSTEMS CONSTITUTIONAL: Denies fevers, chills, or night sweats. No unintentional weight loss reported. NEUROLOGICAL: Denies headache, amaurosis fugax, motor weakness, sensory deficit, vertigo/spinning sensation, gait abnormalities, or tremors. ENT: No hearing loss, otalgia, otorrhea, rhinitis, rhinorrhea, hoarseness, or sore throat. CARDIOVASCULAR: Denies any exertional angina, dyspnea on exertion, orthopnea, paroxysmal nocturnal dyspnea, palpitations, life-threatening arrhythmias, c laudication. PULMONARY: Denies any shortness of breath, cough, phlegm/sputum, hemoptysis, pleuritic chest pain. SLEEP: Denies morning headaches, daytime somnolence or napping. Denies difficulty falling asleep, staying asleep, waking from sleep. Denies knowledge of snoring. GASTROINTESTINAL: Denies any type of dysphagia to either liquids or solids. Denies nausea, vomiting, pyrosis, early satiety, abdominal pain, diarrhea, cons tipation, or changes in stool consistency or caliber. Denies coffee-ground emesis, hematemesis, hematochezia, or melanotic stools. GENITOURINARY: Denies frequency, urgency, nocturia, hematuria or incontinence (Storage/Irritative symptoms.) Low urinary stream, straining to void, urinary intermittency or hesitancy, splitting of the voiding stream, terminal dribbling. ENDOCRINOLOGIC: Denies polyuria, polydipsia, polyphagia or heat/cold intolerances. HEMATOLOGIC: Denies thrombophilia/previous clots, or coagulopathy/bleeding disorders. ONCOLOGIC: Denies personal history of malignancy. DERMATOLOGIC: Denies rashes or pruritus. PSYCHIATRIC: Denies any suicidal or homicidal ideation. Denies hallucinations. PHYSICAL EXAM GENERAL APPEARANCE: The patient is awake, alert, and oriented, in no acute cardiopulmonary distress. NEUROLOGICAL: Cranial nerves II-XII grossly intact. Motor is 5/5 in bilateral upper and lower extremities proximal to distal. No sensory deficits. HEENT: Face is symmetric. Pupils are equal and reactive. Extraocular movements are intact. NECK: Supple. No JVD. No thyromegaly. No submental, submandibular, pre- /postauricular, occipital or supraclavicular lymphadenopathy. CHEST: Normal chest expansion. No Telemetry. LUNGS: Absence of any rales, rhonchi or any wheezing. CARDIOVASCULAR: Regular. S1 and S2 normal. No appreciable rubs, murmurs or gallops. ABDOMEN: Soft, nontender, and nondistended. There is no rebound, voluntary guarding, or rigidity. : Deferred. No [place]. EXTREMITIES: Left lower extremity swelling No clubbing. Good capillary refill. SKIN: No skin breakdown. Vital Signs (last 8hr) Date Time Temp Pulse Resp B/P (MAP) Pulse Ox O2 Delivery O2 Flow Rate FiO2 06/23/25 12:00 98.2 84 19 95/60 96 Room Air 06/23/25 08:00 97.5 87 19 98/63 96 Room Air LABS: Laboratory: Test 06/23/25 06:33 06/22/25 15:32 06/22/25 06:11 06/21/25 23:31 Range/Units Prothrombin Time 10.8 9.6-11.6 SEC Prothromb Time International Ratio 1.02 0.85-1.15 Activated Partial Thromboplast Time 90.2 #*H 26.3-35.5 SEC White Blood Count 8.4 4.8-10.8 K/uL Red Blood Count 3.05 L 4.00-5.50 MIL/uL Hemoglobin 9.6 L 12.0-16.0 g/dL Hematocrit 27.9 L 36-48 % Mean Corpuscular Volume 91.5 79-99 fL Mean Corpuscular Hemoglobin 31.5 27.0-33.0 pg Mean Corpuscular Hemoglobin Concent 34.4 32.0-36.0 g/dL Red Cell Distribution Width 13.5 11.0-15.5 % Platelet Count 159 # 130-400 K/uL Mean Platelet Volume 10.0 7.5-10.5 fL Immature Granulocyte % (Auto) 6.6 H 0-1 % Neutrophils (%) (Auto) 67.9 40.0-77.0 % Lymphocytes (%) (Auto) 17.8 L 21.0-51.0 % Monocytes (%) (Auto) 7.0 3.0-13.0 % Eosinophils (%) (Auto) 0.2 0.0-8.0 % Basophils (%) (Auto) 0.5 0.0-5.0 % Neutrophils # (Auto) 5.7 1.8-7.7 K/uL Lymphocytes # (Auto) 1.5 1.0-4.8 K/uL Monocytes # (Auto) 0.6 0.1-1.0 K/uL Eosinophils # (Auto) 0.02 0.00-0.70 K/uL Basophils # (Auto) 0.04 0.00-0.20 K/uL Absolute Immature Granulocyte (auto 0.55 0-1 K/uL Nucleated Red Blood Cells 0.0 0.0-0.19 % Sodium Level 142 136-145 mmol/L Potassium Level 3.6 3.5-5.1 mmol/L Chloride Level 107 101-111 mmol/L Carbon Dioxide Level 29 21-32 mmol/L Blood Urea Nitrogen 9 7-18 mg/dL Creatinine 0.6 0.5-1.0 mg/dL Glomerular Filtration Rate Calc 107 >90 mL/min Random Glucose 95 70-105 mg/dL Total Calcium 8.7 8.5-10.1 mg/dL Lupus Anticoag PTT Mix/Correction Hexagonal Phospholipid Neutralizat Current Medications Medications (Trade) Dose Ordered Sig/Juan Route PRN Reason Start Time Stop Time Status Last Admin Dose Admin Acetaminophen (TYLenol 325MG TAB) 650 mg Q4H PRN PO MILD PAIN (1-3) 06/20/25 06:30 06/22/25 21:49 DC 06/21/25 23:00 650 MG Acetaminophen (TYLenol 325MG TAB) 650 mg Q4H PRN PO MILD PAIN (1-3) 06/22/25 22:00 07/22/25 21:59 06/23/25 11:19 650 MG Acetaminophen (TYLenol 325MG TAB) 650 mg Q6H PRN PO TEMPERATURE GREATER THAN 101.5 06/20/25 06:30 06/22/25 21:48 DC 06/20/25 20:33 650 MG Acetaminophen (TYLenol 325MG TAB) 650 mg Q6H PRN PO TEMPERATURE GREATER THAN 101.5 06/22/25 22:00 07/22/25 21:59 Docusate Sodium (COLace 100MG CAP) 100 mg BID PRN PO CONSTIPATION 06/22/25 10:00 06/22/25 21:50 DC Docusate Sodium (COLace 100MG CAP) 100 mg BID PRN PO CONSTIPATION 06/22/25 22:00 07/22/25 21:59 Famotidine (Pepcid 20mg Tab) 20 mg DAILY PO 06/20/25 09:00 06/22/25 21:49 DC 06/22/25 09:00 20 MG Famotidine (Pepcid 20mg Tab) 20 mg DAILY PO 06/23/25 09:00 07/23/25 08:59 06/23/25 08:35 20 MG Folic Acid (FOLic ACID 1 MG TABLET) 1 mg DAILY PO 06/23/25 09:00 07/23/25 08:59 06/23/25 08:34 1 MG Heparin Sodium (Porcine) (HEParin 5,000 UNIT VIAL) *calculation based on ACTUAL B... AD PRN IV HEPARIN PROTOCOL 06/20/25 05:00 06/22/25 14:04 DC 06/20/25 04:59 4,000 UNIT Heparin Sodium/ Dextrose 250 ml @ 0 mls/hr Q6H IV 06/20/25 05:00 06/22/25 14:04 DC 06/21/25 11:35 0 MLS/HR Heparin Sodium/ Dextrose 250 ml @ 0 mls/hr Q6H IV 06/22/25 16:00 06/22/25 21:50 DC Heparin Sodium/ Dextrose 250 ml @ 0 mls/hr Q6H IV 06/22/25 22:00 06/23/25 10:37 DC 06/23/25 02:01 10.61 MLS/HR Lactated Ringer's (Lactated Ringers 1000ml) 1,000 ml BOLUS STAT IV 06/20/25 03:46 06/20/25 03:59 DC 06/20/25 04:30 1,000 ML Ondansetron HCl (zoFRAN 4MG INJ) 4 mg Q6H PRN IV NAUSEA/VOMITING 06/20/25 06:30 06/22/25 21:49 DC Ondansetron HCl (zoFRAN 4MG INJ) 4 mg Q6H PRN IV NAUSEA/VOMITING 06/22/25 22:00 07/22/25 21:59 Tramadol HCl (UltRAM) 100 mg Q6H PRN PO MODERATE PAIN (4-6) 06/22/25 10:00 06/22/25 21:47 DC Tramadol HCl (UltRAM) 100 mg Q6H PRN PO MODERATE PAIN (4-6) 06/22/25 22:00 06/27/25 21:59 06/22/25 21:52 100 MG Vitamin B Complex (Vitamin B-12) 1,000 mcg DAILY PO 06/23/25 09:00 07/23/25 08:59 06/23/25 08:35 1,000 MCG DIAGNOSTICS / RADIOLOGY: [ ] ASSESSMENT: -Acute deep venous thrombosis(DVT) of left popliteal vein POA -History of pulmonary embolism with recent embolectomy at [facility] POA -Limited access to prescribed medication due to financial constraints POA -Essential hypertension -History of nephrolithiasis and prior nephrostomy -Recent acute respiratory failure requiring intubation -Overweight(BMI 26.1 ) -Iodine allergy PLAN: Acute deep venous thrombosis(DVT) of left popliteal vein POA -patient was recently admitted to [facility], diagnosed with pulmonary embo lism and embolectomy was done. -venous Doppler of lower extremity showed partially occluding DVT with a left popliteal vein -lab showed PT 11.3, INR 1.08, APTT 23.0 on 06/20/2025. -continue heparin drip , we will trend PT INR Limited access to prescribed medication due to financial constraints POA -patient had embolectomy done recently and was discharged home on Eliquis -patient was not taking medication as her insurance was not covering the medication -case management on board, will evaluate and assist with social needs. -case management provided the patient with Eliquis coupon for 30 days. GI prophylaxis with Pepcid 20 mg p.o. daily Zofran 4 mg q.6 IV PRN for nausea or vomiting Acetaminophen 650 mg q.4 PRN p.o. for mild pain Tramadol HCl 100 mg q.6 PRN p.o. for moderate pain Acetaminophen 650 mg q.6 PO prn if temperature > 101.5 CHELSY HAQUE MD Jun 23, 2025 12:49
--- NOTE | 2025-06-23 15:49 | PN ---
[facility] PROGRESS NOTE Date Patient Seen: Jun 23, 2025 Time of Visit: 15:44 Supervising Physician: Dr. Riddle Primary Care Physician: Gee Paige Outpatient Specialists: [ ] Inpatient Consults: Dr Alessandra RONDON Attending: Dr Dixon PROBLEM LIST: Acute deep venous thrombosis(DVT) of left popliteal vein POA History of pulmonary embolism with recent embolectomy at [facility] POA Hypercoagulable state POA not on her Rxd Eliquis 2/2 financial constraints POA Essential hypertension History of nephrolithiasis and prior nephrostomy Recent acute respiratory failure requiring intubation Overweight(BMI 26.1 ) Iodine allergy INTERVAL HISTORY: Patient evaluated at bedside today, she currently continues on heparin drip. She is currently on room air with a white count of 8.4. Patient has pending initiation of Eliquis, daughter was provided with a discount certificate and we will be attempting to machine operator hop picker the prescription today. If possible in the [facility] we will discharge per primary. If not patient will be evaluated for alternative means of anticoagulation, [place]. Critical Care/Pulmonary Services we will be signing off the case at this time, disposition per primary, should her services be required again please feel free to re-consult. Patient cleared for discharge once appropriate anticoagulation has been initiated REVIEW OF SYSTEMS: General: No malaise or fever. Neurological: No fainting episodes or seizures. HEENT: No nasal congestion or nasal secretion. Respiratory: No cough, shortness of breath, or wheezing Cardiac: No chest pain or palpitations. Gastrointestinal: No vomiting or diarrhea. Genitourinary: No dysuria hematuria. Skin: No rashes or lesions. Hematological: No bruises or bleeding. Musculoskeletal: No joint pains or arthralgias. Psychiatric: No depression or panic attacks. PHYSICAL EXAM: GENERAL: alert, weak, awake oriented x 3 HEENT: EOMI, Sclera non icteric, moist mucosa NECK: Supple, no JVD, trachea midline LUNGS: Diminished breath sounds bilaterally. No wheezes HEART: Regular rate and rhythm. Normal S1 and S2, without murmurs ABD: Abdomen soft, nontender. Bowel sounds present EXT: No clubbing cyanosis or edema, reports some tenderness to left great toe. Bilateral lower extremity pedal pulse present. No discoloration noted to lower extremities. NEURO: Alert and oriented to person, follows commands Vital Signs (last 8hr) Date Time Temp Pulse Resp B/P (MAP) Pulse Ox O2 Delivery O2 Flow Rate FiO2 06/23/25 12:00 98.2 84 19 95/60 96 Room Air 06/23/25 08:34 96 Room Air* 0 21 06/23/25 08:00 97.5 87 19 98/63 96 Room Air LABS: Hematology Labs: Test 06/22/25 15:32 Range/Units White Blood Count 8.4 4.8-10.8 K/uL Red Blood Count 3.05 L 4.00-5.50 MIL/uL Hemoglobin 9.6 L 12.0-16.0 g/dL Hematocrit 27.9 L 36-48 % Mean Corpuscular Volume 91.5 79-99 fL Mean Corpuscular Hemoglobin 31.5 27.0-33.0 pg Mean Corpuscular Hemoglobin Concent 34.4 32.0-36.0 g/dL Red Cell Distribution Width 13.5 11.0-15.5 % Platelet Count 159 # 130-400 K/uL Mean Platelet Volume 10.0 7.5-10.5 fL Immature Granulocyte % (Auto) 6.6 H 0-1 % Neutrophils (%) (Auto) 67.9 40.0-77.0 % Lymphocytes (%) (Auto) 17.8 L 21.0-51.0 % Monocytes (%) (Auto) 7.0 3.0-13.0 % Eosinophils (%) (Auto) 0.2 0.0-8.0 % Basophils (%) (Auto) 0.5 0.0-5.0 % Neutrophils # (Auto) 5.7 1.8-7.7 K/uL Lymphocytes # (Auto) 1.5 1.0-4.8 K/uL Monocytes # (Auto) 0.6 0.1-1.0 K/uL Eosinophils # (Auto) 0.02 0.00-0.70 K/uL Basophils # (Auto) 0.04 0.00-0.20 K/uL Absolute Immature Granulocyte (auto 0.55 0-1 K/uL Nucleated Red Blood Cells 0.0 0.0-0.19 % Chemistry Labs: Test 06/22/25 06:11 Range/Units Sodium Level 142 136-145 mmol/L Potassium Level 3.6 3.5-5.1 mmol/L Chloride Level 107 101-111 mmol/L Carbon Dioxide Level 29 21-32 mmol/L Blood Urea Nitrogen 9 7-18 mg/dL Creatinine 0.6 0.5-1.0 mg/dL Glomerular Filtration Rate Calc 107 >90 mL/min Random Glucose 95 70-105 mg/dL Total Calcium 8.7 8.5-10.1 mg/dL Coagulation Labs: Test 06/23/25 06:33 06/21/25 23:31 Range/Units Prothrombin Time 10.8 9.6-11.6 SEC Prothromb Time International Ratio 1.02 0.85-1.15 Activated Partial Thromboplast Time 90.2 #*H 26.3-35.5 SEC Lupus Anticoag PTT Mix/Correction Hexagonal Phospholipid Neutralizat DIAGNOSTICS / RADIOLOGY RESULTS: [ ] Plan: Follow cardiology recs Pt conitnues on heparin gtt this morning , monitor PTT monitor fo s/s of bleeding hypercoagulable state work up follow hematology recommendations maintain o2 sats above 92% dispo per primary COMFORT STEVENS PAC Jun 23, 2025 15:49
[2025-06-23 16:00] VITALS: BP 99/61; PULSE 64; RESP 21; TEMP 98.2
--- NOTE | 2025-06-23 17:57 | DS ---
Discharge Summary Hospital Course Summary: A 55-year-old woman with a history of asthma and nephrolithiasis was admitted with complaints of left lower extremity pain and swelling, along with right shoulder and chest pain. She had recently undergone pulmonary embolectomy for pulmonary embolism and was discharged on apixaban, but did not take it due to financial issues.On arrival, she was hemodynamically stable. Examination revealed swelling and tenderness of the left lower extremity. Doppler ultrasound showed a partially occlusive deep venous thrombosis in the left popliteal vein. EKG showed sinus rhythm. The patient was started on an intravenous heparin drip for anticoagulation and admitted for further management. During hospitalization, she remained stable on heparin therapy without acute events. Discussions were held with the patient and her daughter regarding long- term anticoagulation options. The team reviewed the risks, benefits, and cost considerations of warfarin versus apixaban (Eliquis). Although warfarin was initially considered, the patient and her family decided to continue with apixaban. Case management provided assistance with medication access by supplying an Eliquis coupon for 30 days.Heparin therapy was continued until transition to oral anticoagulation could be safely arranged. Patient's daughter assured that they started arrangements for getting Eliquis medication for long- term anticoagulation therapy. On 06/23/2025 patient found hemodynamically stable and decision to discharge home was made after patient's daughter brought Eliquis medications for 30 days with the help of coupon provided by case management. Patient and daughter both were given the education about the importance of Eliquis therapy for prevention of recurrent hospitalizations. Patient and family demonstrated understanding and agreed to take medication as prescribed. Patient was educated regarding risks and benefits of long-term anticoagulation therapy. Patient was advised call 911 or reach out ER in case of bleeding. Parking Inspector(s): CONSULTATION REPORT Name: FRANCESCO BARNARD Acct: [id number] MR: [id number] : 1970 Admit Date: 06/20/25 KRISHAN BUITRAGO MD [place] [address] [place] [address] CONSULT NOTE: CARDIOLOGY Reason for consult: DVT, PE HPI/story at presentation: This is a pleasant 55-year-old female with past medical history as below presents for lower extremity swelling, was recently discharged from [facility] with pulm embolism s/p thrombectomy. Was not taking Eliquis at home Past medical history: See below Allergies, Meds See chart Review of systems Review of Systems Constitutional: Negative for chills and fever. HENT: Negative for ear discharge and ear pain. Eyes: Negative for photophobia and discharge. Respiratory: Negative for cough, sputum production and stridor. Cardiovascular: Negative for chest pain and palpitations. Gastrointestinal: Negative for diarrhea and vomiting. Genitourinary: Negative for frequency. Musculoskeletal: Negative for myalgias. Skin: Negative for rash. Neurological: Negative for focal weakness and seizures. Endo/Heme/Allergies: Negative for polydipsia. Psychiatric/Behavioral: Negative for hallucinations. 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 Echocardiogram ordered and pending. Seen and examined 06/20/2025 at around 8 PM. ATTESTATION I was involved substantially in the care of this patient Number and complexity of problems addressed: 1 acute illness with systemic features Amount and or complexity of data Review of prior external note(s) from each unique source: 2+ Ordering of each unique test : 0 Review of the result(s) of each unique test: 2+ Assessment requiring an independent historian(s): No Independent interpretation of test performed by another MD/QHCP/appropriate source (not separately reported) : No Discussion of management or test interpretation with external MD/QHCP/appropriate source (not separately reported) : No Risk status (cardiac, billing related): KRISHAN Gaines MD Jun 20, 2025 22:15 Electronically Signed by: KRISHAN BUITRAGO MD06/21/25 0831 Electronically Co-Signed by: CONSULTATION REPORT Name: FRANCESCO BARNARD Acct: [id number] MR: [id number] : 1970 Admit Date: 06/20/25 EMORY SOLIS MD [facility] [address] [place] [id number] EMORY SOLIS MD 06/22/25 1616: CONSULT REFERRING PHYSICIAN: DIAZ FOX REASON FOR CONSULT: DVT HISTORY HPI: 55 year old female with past medical history of asthma , nephrolithiasis, epiglottitis s/p mechanical ventilation (May 2025), recent DVT , recent pulmonary embolism s/p embolectomy ([facility] -May 2025), non compliant with Eliquis due to financial constraints presented to ER with complaints of chest pain, left lower extremity pain and swelling. Doppler of left lower extremity showed partially occluding deep venous thrombosis within the left popliteal vein. Hematology is consulted for the same . Patient is seen and evaluated at the bedside. Patient is being treated with Heparin -on protocol . She complaints of right upper quadrant pain and left lower extremity pain. Pain intensity 7/10 . Patient is able to walk and denies shortness of breath , rashes , any signs or symptoms of bleeding . PMH: Asthma Nephrolithiasis DVT Pulmonary embolism PSH: History of nephrostomy tube placement, history of stent placement SH: Denies any smoking, alcohol, drug use FH: Patient's sister had IA and at 20 years of age . Patients mother and grandmother had IA ALLERGIES: Coded Allergies: iodine (Unverified Allergy, Severe, ANAPHYLAXIS, 01/16/25) Pork/Porcine Containing Products (Unverified Allergy, Unknown, 12/05/24) red dye (Unverified Allergy, Unknown, 05/04/25) CURRENT MEDS: Current Medications Medications (Trade) Dose Ordered Sig/Juan Route PRN Reason Start Time Stop Time Status Last Admin Docusate Sodium (COLace 100MG CAP) 100 mg BID PRN PO CONSTIPATION 06/22/25 10:00 07/22/25 09:59 Tramadol HCl (UltRAM) 100 mg Q6H PRN PO MODERATE PAIN (4-6) 06/22/25 10:00 06/27/25 09:59 Heparin Sodium/ Dextrose 250 ml @ 0 mls/hr Q6H IV 06/22/25 16:00 07/22/25 15:59 UNV REVIEW OF SYSTEMS CONSTITUTIONAL: No FEVER, No SWEATS, No CHILLS, No WEIGHT LOSS HEENT: No JAUNDICE, No SORE THROAT, No SINUS PRESSURE, No VISION CHANGES RESPIRATORY: No COUGH, No CHEST PAIN, No SHORTNESS OF BREATH, No HEMOPTYSIS CARDIOVASCULAR: No PALPATIONS, No DYSPNEA ON EXERTION, No SYNCOPE GASTROINTESTINAL: No NAUSEA, No VOMITING, No DIARRHEA, No DYSPHAGIA, No CONSTIPATION; ABDOMINAL PAIN; No HEMATEMESIS, No HEMATOCHEZIA, No MELENA GENITOURINARY: No DYSURIA, No HEMATURIA HEMATOLOGIC/LYMPHATIC: No EASY BRUISING, No CERVICAL ADENOPATHY, No AXILLARY ADENOPATHY, No INGUINAL ADENOPATHY NEUROLOGICAL: No WEAKNESS-EXTREMETIES, No DIPLOPIA, No NUMBNESS, No TINGLING PHYSICAL EXAM VITALS: Vital Signs Date Time Temp Pulse Resp B/P (MAP) Pulse Ox O2 Delivery O2 Flow Rate FiO2 06/22/25 12:00 97.9 82 20 94/59 99 Room Air 06/21/25 20:00 0 21 GENERAL: ALERT, ORIENTED, APPEARS-NO ACUTE DISTRESS EYES: SCLERAE ANICTERIC, PUPILS EQUAL/REACTIVE, EXTRAOCULAR MUSCLES INTCT ENT/NECK: ORAL MUCOSA W/O LESIONS, OROPHARYNX IS CLEAR, NECK SUPPLE W/O MASSES RESPIRATORY: LUNGS CLEAR-AUSC/PERCUS CARDIOVASCULAR: REGULAR RATE, REGULAR RHYTHM GASTROINTESTINAL: ABDOMEN IS SOFT, TENDER (tender right upper quadrant ) HEMATOLOGY/LYMPHATIC: No CERVICAL ADENOPATHY, No SUPRACLAVICULR ADENOPATHY, No AXILLARY ADENOPATHY, No INGUINAL ADENOPATHY NEUROLOGICAL: No GROSSLY INTACT IMPRESSION Impression 1.Left popliteal vein Deep vein thrombosis 2.Recurrent thrombosis - DVT, PE 3.Anemia with drop in Hemoglobin PLAN Plan 1.Acute Left popliteal Vein DVT with h/o recurrent thromboembolism : Patient with financial constraints for treatment with Eliquis. Patient can be started on Warfarin with target INR 2 to 3 .Warfarin should be continued for 6 months following which thrombophilia screening should be done in warfarin free period to determine the total duration of anticoagulation required for this patient . 2.Patient can be started on Folic acid and vitamin B 12 . WINTER ROGERS MD 06/23/25 0946: PLAN I attest that I was physically present to evaluate the patient and I reviewed and discussed the case with the Resident and agree with the Resident's findings and plans of care as documented above with modifications. Case discussed with resident on the date stated at the beginning of note. Patient was first seen and evaluated by me during this hospitalization. EMORY SOLIS MD Jun 22, 2025 16:16 WINTER ROGERS MD Jun 23, 2025 09:46 Electronically Signed by: WINTER ROGERS MD06/23/25 0946 Electronically Co-Signed by: Procedure(s): [place] [address] [address] IMAGING REPORT Signed PATIENT: FRANCESCO BARNARD MR#: [id number] : 1970 SEX: F AGE: 55 LOCATION: H ORDER 3 STATUS: [facility] REPORT#: [id number] SERVICE 0 REASON: r/o DVT ORDERING PHYSICIAN: JOSE G PAUL MD PROCEDURE: VENOUS JASPER - US VENOUS DOPPLER BILATERAL EXAM: US for Deep Venous Thrombosis, bilateral Lower Extremity. CLINICAL HISTORY: Rule out deep venous thrombosis. TECHNIQUE: Real-time ultrasound scan of the veins of the bilateral lower extremity with color Doppler flow, spectral waveform analysis, and compression. COMPARISON: None provided. FINDINGS: DEEP VEINS: Partially occluding thrombus within the left popliteal vein. Unremarkable right popliteal vein. The common femoral and superficial femoral veins are echolucent and compressible. There is normal color Doppler flow throughout. The visualized calf veins appear patent. SOFT TISSUES: No popliteal fossa cyst or other abnormalities. IMPRESSION: Partially occluding deep venous thrombosis within the left popliteal vein. The remaining left and right lower extremity veins are within normal limits. /Banks DICTATED BY: DANNY CAMACHO Jr., MD DATE: 06/20/25 0438 ELECTRONICALLY SIGNED BY: DANNY CAMACHO Jr., MD DATE: 06/20/25 0438 [place] [id number] [id number] IMAGING REPORT Signed PATIENT: FRANCESCO BARNARD MR#: [id number] : 1970 SEX: F AGE: 55 LOCATION: 2DH ORDER 1 STATUS: ADM IN REPORT#: [id number] SERVICE 0 REASON: CP ORDERING PHYSICIAN: TANO SEAY PROCEDURE: ECHO FU LD - ECHO 2-D F/U-LTD APPROVED REPORT EXAM: LIMITED Two-dimensional and M-mode echocardiogram. Study Details: 05/10/25 previous echo INDICATION ICD: Chest Pain 2D Dimensions RVDd 3.4 cm LVEF(%) 55.1 (>50%) LVED Vol(simp.) 78.0 mL IVSd 0.7 (0.7-1.1cm) FS(%) 28 % LVES Vol(simp.) 36.0 mL LVDd 4.2 (3.8-5.6cm) LA (2D) 3.1 (1.6-4.0cm) LVEF(%, simp.) 54 % PWd 1.1 (0.7-1.1cm) Ao Root(2D) 2.8 (2.0-3.7cm) LA ESV INDEX (BP) 24.43 mL/m2 LVDs 3.0 (2.5-4.0cm) Deformation Strain Apical 4 -16.5 % Apical 2 -18.3 % Apical 3 -15.9 % Global Strain -16.9 % Left Ventricle The left ventricle is normal size. Normal wall motion There is normal left ventricular wall thickness. LVEF is 50-55%. The left ventricular diastolic function is normal. Right Ventricle The right ventricle is normal size. Atria The left atrium size is normal. The right atrium size is normal. Aortic Valve The aortic valve is normal in structure. Mitral Valve The mitral valve is normal in structure. Tricuspid Valve The tricuspid valve is normal in structure. Pulmonic Valve The pulmonary valve is normal in structure. Great Vessels The aortic root is normal in size. Pericardium There is no pericardial effusion. Conclusion LVEF is 50-55%. The left ventricular diastolic function is normal. There is normal left ventricular wall thickness. Normal wall motion There is no pericardial effusion. Normal pulmonary pressures Study quality was adequate DICTATED BY: KRISHAN BUITRAGO MD DATE: 06/20/25 0922 ELECTRONICALLY SIGNED BY: KRISHAN BUITRAGO MD DATE: 06/22/25 6490 Assessment/Plan: ASSESSMENT: -Acute deep venous thrombosis(DVT) of left popliteal vein POA -History of pulmonary embolism with recent embolectomy at [facility] POA -Limited access to prescribed medication due to financial constraints POA -Essential hypertension -History of nephrolithiasis and prior nephrostomy -Recent acute respiratory failure requiring intubation -Overweight(BMI 26.1 ) -Iodine allergy Discharge Instructions: Your blood thinner (ELIQUIS / apixaban): Take two 5 mg tablets (10 mg total) twice daily for 5 days, then one 5 mg tablet twice daily starting the next day. Missed dose: take it as soon as you remember that same day, then resume your usual twice-daily schedule. Do not double up. Can take with or without food. Bleeding precautionscall 911 or go to the ER for: Vomiting or coughing blood; black/tarry stools; red urine; severe headache, weakness, or falls/head injury; uncontrolled bleeding from gums/nose/cuts. Avoid NSAIDs (ibuprofen, naproxen) and most sefr-edh-iliyccp pain/fever combos unless your clinician okays them; acetaminophen is usually preferred. Avoid [place] wort. Tell every clinician/dentist youre on apixaban. Activity & self-care: Stay active, walk often, elevate the leg when resting. Do not stop apixaban without medical advice (stopping early raises clot risk). Education documented: Risks/benefits of anticoagulation and bleeding precautions reviewed; medication adherence reinforced; patient voiced understanding. START Apixaban (ELIQUIS) 5 mg tablets Sig: Take 2 tablets (10 mg) PO BID for 5 days, then 1 tablet (5 mg) PO BID thereafter. Follow-up appointments: Primary care: within 1 week. Anticoagulation clinic / Hematology: 12 weeks to confirm adherence, interactions, and treatment duration. Planned duration of anticoagulation: at least 6 months; longer/indefinite if unprovoked or with persistent risk factorsdecide at follow-up. Labs/monitoring: Baseline/near-term CBC and BMP at or soon after discharge (to check Hgb/Cr), then periodically (e.g., in 13 months, then at clinician discretion). Imaging: No routine repeat ultrasound is needed unless symptoms worsen or theres clinical concern. Home Medications: Active Scripts Apixaban (Eliquis) 5 Mg Tablet, 5 MG PO BID for 5 Days, #20 TAB Take 2 tablets twice a day Prov:NOELLE STONE MD 06/23/25 Apixaban (Eliquis) 5 Mg Tablet, 5 MG PO BID for 30 Days, #60 TAB Prov:NOELLE STONE MD 06/23/25 New Medications: Apixaban (Eliquis) 5 Mg Tablet 5 MG PO BID for 30 Days, #60 TAB Apixaban (Eliquis) 5 Mg Tablet 5 MG PO BID for 5 Days, #20 TAB Take 2 tablets twice a day Time spent arranging discharge: 1-30 minutes ATTESTATION BY PHYSICIAN I have seen and examined the patient. I reviewed the documentation, medical decision making, and treatment plan as noted by the resident provider above. I agree with the findings and plan of care. Pankaj Tolbert MD, ADIL SHAH QUADRI MD Jun 23, 2025 17:57
--- NOTE | 2025-06-23 19:01 | NUR ---
DISCHARGE PT PIV DC'D PT VERBALIZED UNDERSTANDING OF DISCHARGE INSTRUCTIONS PT HAD NO FURTHER QUESTIONS AT TIME OF DISCHARGE PT GATHERED AND TOOK ALL BELONGINGS
--- NOTE | 2025-06-23 19:02 | NUR ---
TEACHING PROVIDED ELIQUIS ANTICOAGULATION THERAPY TEACHING PROVIDED TO PATIENT. PATIENT VERBALIZED UNDERSTANDING OF TEACHING. NO FURTHER QUESTIONS AT THIS TIME.
[2025-06-25 20:09] LABS: DRVVT CONFIRMATION-LUPUS 1.1 ratio (0.8-1.2); DRVVT-LUPUS ANTICOAGULANT 58.4 sec (0.0-47.0)
== END 2025-06-23 19:44 | disposition home or self-care (01) | DRG 300 ==
LOC: EDH 23:58 → EDHIP 06-20 06:18 → 2DH 06-20 08:19 → 3AH 06-22 18:35 → 3BH 06-22 18:41 → UNDODISIN 06-22 18:50
PROVIDERS: ADMIT Internal Medicine; ATTEND Internal Medicine
DX: I82.432 Acute embolism and thrombosis of left popliteal vein (principal); D68.59 Other primary thrombophilia; I10 Essential (primary) hypertension; D64.9 Anemia, unspecified; E87.6 Hypokalemia; K21.9 Gastro-esophageal reflux disease without esophagitis; J45.909 Unspecified asthma, uncomplicated; E66.3 Overweight; Z68.26 Body mass index [BMI] 26.0-26.9, adult; Z86.711 Personal history of pulmonary embolism; Z93.6 Other artificial openings of urinary tract status; Z79.01 Long term (current) use of anticoagulants; Z82.49 Family history of ischemic heart disease and other diseases of the circulatory system; Z86.718 Personal history of other venous thrombosis and embolism; Z87.442 Personal history of urinary calculi; Z91.041 Radiographic dye allergy status; Z91.148 Patient's other noncompliance with medication regimen for other reason
CPT/HCPCS: 36415; 80048; 80053; 81241; 84484; 85025; 85027; 85210; 85300; 85303; 85306; 85610; 85730; 85732; 86147; 93005; 93308; 93356; 93970; 96374; 99285; G0378; J1644; J1885; J2405; J7120; J2360

== ENCOUNTER 2025-07-17 20:59 | Emergency (ER) | payer OTHER ==
[~2025-07-17] VITALS: Ht 154.9 cm; Wt 65.3 kg
[~2025-07-17 20:59] MED LIST changes: +APIX5TAB PO; -CEPH500B PO; -HYDR-4060 PO
--- NOTE | 2025-07-17 21:09 | ERN ---
ED Note History of Present Illness Stated Complaint: C/O HEADACHE,SHOULDER PAIN,NAUSEA,PAIN TO LEGS Chief Complaint: Multiple Complaints Time Seen by MD: 21:02 Dictation: 55-YEAR-OLD FEMALE COMING IN TODAY WITH COMPLAINTS OF PAIN TO HER SHOULDERS BILATERAL LOWER EXTREMITIES AND A HEADACHE FOR THE LAST 3-4 DAYS. SHE DENIES FEVER CHILLS NAUSEA VOMITING. SHE STATES SHE IS CURRENTLY ON ELIQUIS FOR KNOWN DVT'S TO HER BILATERAL LOWER EXTREMITIES. SHE HAS NO SHORTNESS A BREATH. SHE HAS NOT BEEN TO SEE HER DOCTOR AT [facility]. Allergies: Coded Allergies: iodine (Unverified Allergy, Severe, ANAPHYLAXIS, 01/16/25) Pork/Porcine Containing Products (Unverified Allergy, Unknown, 12/05/24) red dye (Unverified Allergy, Unknown, 05/04/25) Home Meds Active Scripts Apixaban (Eliquis) 5 Mg Tablet, 5 MG PO BID for 5 Days, #20 TAB Take 2 tablets twice a day Prov:NOELLE STONE MD 06/23/25 Apixaban (Eliquis) 5 Mg Tablet, 5 MG PO BID for 30 Days, #60 TAB Prov:NOELLE STONE MD 06/23/25 Past Medical History Past Medical History: Asthma, Other Additional Past Medical Hx: HX OF BLOOD CLOTS Surgical History: Other Surgical History Other: RT NEPHROSTOMY TUBE DUE TO KIDNEY STONES Social History: Negative, Lives with family History: Not Applicable RN Note Reviewed/Agreed w/PFSH: Yes Review of System Dictation CONSTITUTIONAL: NEGATIVE EXCEPT FOR HPI HEAD/FACE: NEGATIVE EXCEPT FOR HPI EENT: NEGATIVE EXCEPT FOR HPI RESPIRATORY: NEGATIVE EXCEPT FOR HPI GASTROINTESTINAL/ABDOMINAL: NEGATIVE EXCEPT FOR HPI GENITOURINARY: NEGATIVE EXCEPT FOR HPI MUSCULOSKELETAL: NEGATIVE EXCEPT FOR HPI RIGHT THIGH PAIN/LEFT CALF PAIN BILATERAL SHOULDER PAIN INTEGUMENTARY: NEGATIVE EXCEPT FOR HPI NEUROLOGICAL/PSYCH: NEGATIVE EXCEPT FOR HPI GENERALIZED HEADACHE HEMATOLOGIC/LYMPHATIC: NEGATIVE EXCEPT FOR HPI ALL SYSTEMS NEGATIVE, EXCEPT NOTED ABOVE. 13 POINT REVIEW OF SYSTEMS ASSESSED AND ALL NEGATIVE EXCEPT FOR ABOVE. Initial Vital Sign VS Vital Signs Date Time Temp Pulse Resp B/P (MAP) Pulse Ox O2 Delivery O2 Flow Rate FiO2 07/17/25 21:02 97.5 95 20 125/95 99 Room Air Physical Exam Dictation VITAL SIGNS REVIEWED GENERAL APPEARANCE: ALERT, ORIENTED X 3, MILD ACUTE DISTRESS, WELL DEVELOPED, NOURISHED. HEAD AND FACE: NON-TRAUMATIC. EYES: PERRL, PINK CONJUNCTIVAS, EYELID NO TRAUMA, ANTERIOR CHAMBER WITH ARCUS SENILIS. EARS: PINNAS INTACT AND NO SIGNS OF TRAUMA OR ERYTHEMA EAR CANALS CLEAR AND NO DISCHARGE TM NO ERYTHEMA NOSE: NO DISCHARGE, NO BLEEDING. OROPHARYNX: MOUTH NORMAL, TONGUE PINK, PHARYNX CLEAR,NO ERYTHEMA, TONSILS NO EXUDATES, NO ABSCESSES NOTED, MUCOUS MEMBRANE MOIST NECK: SUPPLE, NON-TENDER, NO THYROMEGALY, NO MASSES, NO JVD, NO BRUITS BREAST:DEFERRED CHEST:NO TENDERNESS, NO CREPITUS, NO PARADOXICAL MOVEMENT, NO RETRACTIONS LUNGS:CLEAR, WELL-VENTILATED, SYMMETRIC, NO RALES, NO WHEEZING, NO RHONCHI, NO STRIDOR, GOOD BREATH SOUNDS BILATERALLY NO TACHYPNEA NO RETRACTIONS HEART: REGULAR RATE, REGULAR RHYTHM, NO MURMUR, NO GALLOPS VASCULAR: NO PERIPHERAL EDEMA, ABDOMEN: SOFT, POSITIVE BOWEL SOUNDS, NONDISTENDED, NO GUARDING, NONTENDER, NO REBOUND, NO MASSES NO HEPATOMEGALY, NO SPLENOMEGALY, NO PEACE'S SIGN, NO HERNIAS. RECTAL: DEFERRED GENITAL: DEFERRED NEUROLOGICAL: NORMAL SPEECH, MOTOR FUNCTION INTACT, SENSORY FUNCTION INTACT MUSCULOSKELETAL: NECK NONTENDER, FULL RANGE OF MOTION, BACK NONTENDER, FULL RANGE OF MOTION, EXTREMITIES: MILD RIGHT THIGH/LEFT CALF TENDERNESS SWELLING. NEUROVASCULAR CMS INTACT. SKIN: COLOR PINK, DRY, NO TURGOR, NO RASH, NO LACERATIONS, NO ABRASIONS, NO CONTUSIONS. LYMPHATIC: DEFERRED Results (Laboratory/Radiology) Laboratory/Radiology Laboratory Tests Test 07/17/25 21:15 07/17/25 23:34 White Blood Count 6.8 K/uL (4.8-10.8) Red Blood Count 3.84 MIL/uL (4.00-5.50) L Hemoglobin 12.0 g/dL (12.0-16.0) Hematocrit 36.6 % (36-48) Mean Corpuscular Volume 95.3 fL (79-99) Mean Corpuscular Hemoglobin 31.3 pg (27.0-33.0) Mean Corpuscular Hemoglobin Concent 32.8 g/dL (32.0-36.0) Red Cell Distribution Width 13.3 % (11.0-15.5) Platelet Count 349 K/uL (130-400) Mean Platelet Volume 9.0 fL (7.5-10.5) Immature Granulocyte % (Auto) 0.4 % (0-1) Neutrophils (%) (Auto) 66.7 % (40.0-77.0) Lymphocytes (%) (Auto) 21.9 % (21.0-51.0) Monocytes (%) (Auto) 8.7 % (3.0-13.0) Eosinophils (%) (Auto) 1.9 % (0.0-8.0) Basophils (%) (Auto) 0.4 % (0.0-5.0) Neutrophils # (Auto) 4.5 K/uL (1.8-7.7) Lymphocytes # (Auto) 1.5 K/uL (1.0-4.8) Monocytes # (Auto) 0.6 K/uL (0.1-1.0) Eosinophils # (Auto) 0.13 K/uL (0.00-0.70) Basophils # (Auto) 0.03 K/uL (0.00-0.20) Absolute Immature Granulocyte (auto 0.03 K/uL (0-1) Nucleated Red Blood Cells 0.0 % (0.0-0.19) Sodium Level 139 mmol/L (136-145) Potassium Level 4.0 mmol/L (3.5-5.1) Chloride Level 102 mmol/L (101-111) Carbon Dioxide Level 27 mmol/L (21-32) Blood Urea Nitrogen 14 mg/dL (7-18) Creatinine 0.6 mg/dL (0.5-1.0) Glomerular Filtration Rate Calc 107 mL/min (>90) Random Glucose 116 mg/dL (70-105) H Total Calcium 9.1 mg/dL (8.5-10.1) Troponin I High Sensitivity < 4 ng/L (4-50) L SARS-CoV-2 Antigen (Rapid) PRESUMPTIVE NEGATIVE 2141/bilateral Doppler ultrasound demonstrates negative DVT lower extremities Labs Reviewed?: Yes EKG: (+) NSR EKG Comment: EKG normal sinus rhythm/heart rate 97/axis normal/no ectopy ED Course ED Course Orders Procedure Category Date Status Time Us Venous Doppler US 07/17/25 Resulted Bilateral 21: Cbc With Differential LAB 07/17/25 Complete :06 12 Lead Ekg Tracing- EKG 07/17/25 Complete Technical 21:06 Troponin I High LAB 07/17/25 Complete Sensitivity 21:06 Basic Metabolic Panel LAB 07/17/25 Complete 21:06 Covid19 (Sars Antigen LAB 07/17/25 Complete Rapid) 21:39 Hydrocodone/Apap PHA 07/18/25 Complete 5/325 (Russell 5/325mg) 00:00 Current Medications Medications (Trade) Dose Ordered Sig/Juan Route PRN Reason Start Time Stop Time Status Last Admin Dose Admin Acetaminophen/ Hydrocodone Bitart (NORco 5/325MG) 1 tab ONCE ONCE PO 07/18/25 00:00 07/18/25 00:01 DC 07/17/25 23:55 Vital Signs Date Time Temp Pulse Resp B/P (MAP) Pulse Ox O2 Delivery O2 Flow Rate FiO2 07/17/25 21:02 97.5 95 20 125/95 99 Room Air 0015/PATIENT HAS A NEGATIVE WORKUP. SHE IS HEMODYNAMICALLY STABLE. SHE IS AWARE THAT SHE HAS NEGATIVE DVT'S BILATERALLY SHE WILL BE DISCHARGED TO FOLLOW UP WITH YOUR PRIMARY CARE DOCTOR IN THE NEXT 1- 2 DAYS. TOLD TO CONTINUE ALL MEDICATIONS AND TREATMENTS FROM HER PRIMARY CARE DOCTOR. HEART Score Response (Comments) Value History: Low suspicion (0) 0 Age: 45-65yrs (+1) 1 Risk Factors: 1-2 risk factors (+1) 1 Initial Troponin: Normal limit (0) 0 Total 2 Medical Decision Making MDM MDM: DIFFERENTIAL DIAGNOSIS: DVT/MUSCULOSKELETAL PAIN/ELECTROLYTE IMBALANCE/DEHYDRATION/TENSION HEADACHE/ACS/MS RATIONALE: TESTS CONSIDERED AND ORDERED SECONDARY TO SHARED DECISION MAKING INCLUDE: EKG/LABS/DOPPLER ULTRASOUND BILATERAL LOWER EXTREMITIES PREVIOUS OUTSIDE RECORDS REVIEWED: OLD ER VISITS. RISK OF COMPLICATION AND/OR MORBIDITY OR MORTALITY OF PATIENT MANAGEMENT: NONE MEDICATIONS-PER MEDICATION RECONCILIATION NEED FOR HOSPITALIZATION: PATIENT DOES NOT MEET CRITERIA FOR HOSPITALIZATION. NONE NEED FOR EMERGENCY MAJOR/MINOR SURGERY: NO THERE ARE NO SOCIAL CONCERNS WITH THIS PATIENT. PRESCRIPTION DRUG MANAGEMENT FIORICET PRESCRIPTIONS WILL INCLUDE SYMPTOMATIC CARE PATIENT'S PRIOR EXTERNAL MEDICAL RECORDS FROM OTHER ER VISITS WERE REVIEWED BY ME INDICATED. PRIOR TESTING AND RESULTS FROM PREVIOUS VISITS WERE REVIEWED. PRIOR TESTS WERE TAKEN INTO ACCOUNT WITH MEDICAL DECISION MAKING AND RESOURCE UTILIZATION, INDEPENDENT HISTORIAN/HISTORIANS WERE USED TO OBTAIN COMPLETE MEDICAL HISTORY. I INDEPENDENTLY INTERPRETED THE TEST THAT WERE PERFORMED, RESULTS WERE REVIEWED BY ME AND CONSIDERED FINDINGS ON RADIOLOGY IF ORDERED. MEDICAL MANAGEMENT AND EXAMINATION INTERPRETATION DISCUSSIONS WERE HAD BY ME WITH OTHER QUALIFIED HEALTHCARE PROFESSIONALS INDICATED FOR THE PATIENT'S CARE. DX & DISP Disposition: Discharge Departure Impression: Primary Impression: Bilateral leg pain Additional Impressions: Tension headache, Hyperglycemia Condition: Stable Scripts Butalb/Acetaminophen/Caffeine (Fioricet) 50 Mg-325 Mg-40 Mg Tab 2 TAB PO Q4PRN for HEADACHE, #15 TAB 0 Refills TWO TABLETS BY MOUTH EVERY4 HOURS P.R.N. HEADACHE, MAXIMUM SIX TABLETS IN 24 HOURS Prov: MARCY GRIMES 07/18/25 Additional Instructions: Follow-up with primary care provider in 1 to 2 days. Take medications as directed here in the emergency room. Okay to continue home medications unless otherwise discussed during your visit in the emergency room today. Return to your nearest emergency room if symptoms worsen or if there is no improvement. Call 911 if you need immediate assistance. Take Tylenol or Motrin [id number] as needed and if no contraindications are present. Increase oral hydration. A wound culture or urine culture was ordered here in the emergency room department please follow-up with primary care provider and advise them to get repeat ports from our facility. If you had any Gary wrap/splints that were applied here, please do not remove them until you see your primary care or specialty. Continue all medication and treatments from your primary care doctor. Take Fioricet as directed for your tension headache. Follow up with your primary care doctor in the next 1-2 days. Referrals: AIDE HINTON PA-C (PCP) Time of Disposition: 00:16 I have reviewed the case, and I agree with, Diagnosis and Plan MARCY GRIMES Jul 17, 2025 21:09
--- NOTE | 2025-07-17 21:15 | EKG ---
[facility] Test Date: 2025-07-17 Test Time: 21:13:53 Pat Name: FRANCESCO BARNARD Department: ED Room: Gender: F Design Director: [id number] : 1970 Requested By: MARCY GRIMES Order Number: [id number] Reading MD: Mason Storey Measurements Intervals [place] Rate: 97 P: 39 MD: 165 QRS: 23 QRSD: 79 T: -18 QT: 338 QTc: 429 Interpretive Statements Sinus rhythm Compared to ECG 06/20/2025 04:11:10 No significant changes Electronically Signed On 07-18-2025 19:22:20 REGISTERED TRAVEL NURSE by Mason Storey Please click the below link to view image of tracing.
[2025-07-17 21:27] LABS: IMMATURE GRANULOCYTE ABSOLUTE 0.03 K/uL (0-1); NUCLEATED RED BLOOD CELLS 0.0 % (0.0-0.19); PLATELET COUNT (AUTO) 349 K/uL (130-400); RED BLOOD CELL COUNT(AUTO) 3.84 MIL/uL (4.00-5.50); RED CELL DISTRIBUTION WIDTH 13.3 % (11.0-15.5); WHITE BLOOD COUNT (AUTO) 6.8 K/uL (4.8-10.8)
[2025-07-17 21:35] LABS: CREATININE 0.6 mg/dL (0.5-1.0); GLOMERULAR FILTR. RATE CALC 107.0 mL/min (>90); GLUCOSE,RANDOM 116.0 mg/dL (70-105); SODIUM SERUM 139.0 mmol/L (136-145); UREA NITROGEN, BLOOD 14.0 mg/dL (7-18)
--- NOTE | 2025-07-17 22:17 | HMCIMG ---
EXAM: US for Deep Venous Thrombosis, bilateral Lower Extremity. CLINICAL HISTORY: Leg Pain and Swelling TECHNIQUE: Real-time ultrasound scan of the veins of the bilateral lower extremity with color Doppler flow, spectral waveform analysis and compression. COMPARISON: None provided. FINDINGS: DEEP VEINS: The common femoral, superficial femoral, and popliteal veins are echolucent and compressible. There is normal color Doppler flow throughout. The visualized calf veins appear patent. SOFT TISSUES: No popliteal fossa cyst or other abnormalities. IMPRESSION: No deep venous thrombosis evident on bilateral lower extremity examination. /Ele
[2025-07-17] MEDS: HYDROcodone/APAP 5/325 1 TAB TABLET PO ONE (23:55)
[2025-07-18] MEDS ORDERED: FIORIT PO (00:17)
[2025-07-18 01:11] VITALS: BP 122/88; PULSE 89; RESP 16; TEMP 98.1; O2SAT 99
== END 2025-07-18 01:15 | disposition home or self-care (01) ==
LOC: EDH 20:59
DX: G44.209 Tension-type headache, unspecified, not intractable (principal); M79.604 Pain in right leg; M79.605 Pain in left leg; R73.9 Hyperglycemia, unspecified; J45.909 Unspecified asthma, uncomplicated; Z20.822 Contact with and (suspected) exposure to COVID-19; Z79.01 Long term (current) use of anticoagulants; Z86.718 Personal history of other venous thrombosis and embolism; Z87.442 Personal history of urinary calculi; Z88.8 Allergy status to other drugs, medicaments and biological substances
CPT/HCPCS: 36415; 80048; 84484; 85025; 87426; 93005; 93970; 99284